=== PATIENT | male | born 1940 | race Caucasian/White ===

== ENCOUNTER 2017-08-03 12:21 | Day surgery (SDC) | payer MEDICARE, SELFPAY ==
[~2017-08-03] VITALS: Ht 172.7 cm; Wt 57.8 kg
[~2017-08-03 12:21] MED LIST: ACET325 PO; ADVAIR; ALBIPROI INH; ALBU3IS INH; AMLO10 PO; ASCO500 PO; ASPI325 PO; ASPI81EC PO; ATOR40TA PO; BLOOD PRESSURE MED; BUDE.5 NEB; CEFD300 PO; CEPH500 PO; COMBIVENT RESPIM4 GM IH; COMBIVENT RESPIM4 GM INH; CYAN1000 PO; Colace100 MG PO; DIOVAN/HCTZ; DOCU100 PO; ELIQUIS2.5 MG; ELIQUIS5 MG; ELIQUIS5 MG PO; ERGO400 PO; FERR325 PO; FISH1000 PO; FLUSAL2505 IH; FLUSAL2505 INH; FURO20 PO; GUAI600T33 PO; Jantoven3 MG PO; LANSOPRAZOLE SUSP; LEVFLO500 PO; LEVO750 PO; LIPITOR; LISI20 PO; LISI5 PO; METO100ER PO; METOPROLOL; MULTIVITAMIN; NYST100SU MT; Norco 5-325 Ta1 EACH PO; OMEP20ER; OMEP20ER PO; OMEPRAZOLE MAGN20 MG PO; PANT40 PO; PRAVASTATIN SOD10 MG PO; PRED10 PO; PRED20 PO; PREVACID; Pantoprazole So40 MG PO; TIOT18 IH; TOBRAMYCIN IV; Tazicef2 GM IJ; Ventolin Soln3 ML INH; Vitamin B Comple1 EA PO; WARF3 PO; XARELTO10 MG; XARELTO15 MG PO; XARELTO20 MG PO
[2018-07-27] MEDS ORDERED: OMEPRAZOLE MAGN20 MG PT (08:15)
[2018-07-30] MEDS ORDERED: Tazicef2 GM IV (16:40)
[2018-08-06] MEDS ORDERED: Bisac-Evac10 MG PR (12:57)
[2018-08-06] MEDS ORDERED: PANT40 PT (12:58)
== END 2017-08-03 14:42 | disposition home or self-care (01) ==
LOC: ORSCSDS 12:21
PROVIDERS: Internal Medicine Gastroenterology
PROC: 0D758ZZ Dilation of Esophagus, Via Natural or Artificial Opening Endoscopic (ICD-10-PCS; principal; 2017-08-03 13:45)
DX: R13.10 Dysphagia, unspecified (principal); K22.2 Esophageal obstruction; I10 Essential (primary) hypertension; I25.10 Atherosclerotic heart disease of native coronary artery without angina pectoris; I25.2 Old myocardial infarction; F17.210 Nicotine dependence, cigarettes, uncomplicated; J44.9 Chronic obstructive pulmonary disease, unspecified; K21.9 Gastro-esophageal reflux disease without esophagitis; E78.00 Pure hypercholesterolemia, unspecified; Z79.899 Other long term (current) drug therapy
CPT/HCPCS: C1726

== ENCOUNTER 2017-10-09 12:29 | Day surgery (SDC) | payer MEDICARE, SELFPAY ==
[~2017-10-09] VITALS: Ht 172.7 cm; Wt 59.2 kg
[2017-10-09] MEDS ORDERED: OMEPRAZOLE MAGN20 MG PO (13:38)
[2017-10-09] MEDS ORDERED: BUDE.5 NEB (13:38)
[2017-10-09] MEDS ORDERED: AMLO5 PO (13:39)
[2017-10-09] MEDS ORDERED: ALBU2.5V5 NEB (13:39)
[2018-07-27] MEDS ORDERED: OMEPRAZOLE MAGN20 MG PT (08:15)
[2018-07-30] MEDS ORDERED: Tazicef2 GM IV (16:40)
[2018-08-06] MEDS ORDERED: Bisac-Evac10 MG PR (12:57)
[2018-08-06] MEDS ORDERED: PANT40 PT (12:58)
== END 2017-10-09 15:50 | disposition home or self-care (01) ==
LOC: ORSCSDS 12:29
PROVIDERS: Internal Medicine Gastroenterology
PROC: 0D758ZZ Dilation of Esophagus, Via Natural or Artificial Opening Endoscopic (ICD-10-PCS; principal; 2017-10-09 13:45)
DX: R13.10 Dysphagia, unspecified (principal); K22.2 Esophageal obstruction; J44.9 Chronic obstructive pulmonary disease, unspecified; N02.8 Recurrent and persistent hematuria with other morphologic changes; F17.210 Nicotine dependence, cigarettes, uncomplicated; I25.10 Atherosclerotic heart disease of native coronary artery without angina pectoris; I25.2 Old myocardial infarction; I10 Essential (primary) hypertension; Z79.01 Long term (current) use of anticoagulants; Z79.899 Other long term (current) drug therapy
CPT/HCPCS: C1726; J7120

== ENCOUNTER 2017-10-23 13:03 | Day surgery (SDC) | payer MEDICARE, SELFPAY ==
[~2017-10-23] VITALS: Ht 172.7 cm; Wt 61.2 kg
[~2017-10-23 13:03] MED LIST changes: +ALBU2.5V5 NEB; +AMLO5 PO
[2017-10-23 17:04] LABS: Blood Urea Nitrogen 15 mg/dL (8-24); Creatinine, Blood 0.88 mg/dL (0.60-1.20); Glomerular Filtration Rate >60 (60-)
[2018-07-27] MEDS ORDERED: OMEPRAZOLE MAGN20 MG PT (08:15)
[2018-07-30] MEDS ORDERED: Tazicef2 GM IV (16:40)
[2018-08-06] MEDS ORDERED: Bisac-Evac10 MG PR (12:57)
[2018-08-06] MEDS ORDERED: PANT40 PT (12:58)
== END 2017-10-23 22:52 | disposition home or self-care (01) ==
LOC: ORSCMMR 13:03
PROVIDERS: Internal Medicine Gastroenterology
PROC: 0D758ZZ Dilation of Esophagus, Via Natural or Artificial Opening Endoscopic (ICD-10-PCS; principal; 2017-10-23 16:30)
DX: R13.14 Dysphagia, pharyngoesophageal phase (principal); K22.2 Esophageal obstruction; I10 Essential (primary) hypertension; J44.9 Chronic obstructive pulmonary disease, unspecified; K21.9 Gastro-esophageal reflux disease without esophagitis; I25.2 Old myocardial infarction; Z99.81 Dependence on supplemental oxygen; Z79.899 Other long term (current) drug therapy
CPT/HCPCS: 82565; 84520; C1726; J7120

== ENCOUNTER → 2018-04-08 | Outpatient (CLI) | payer MEDICARE, SELFPAY ==
[2018-04-08 11:10] LABS: BASOPHILS ABSOLUTE AUTO 0.04 K/mm3 (0.00-0.23); BASOPHILS PERCENT AUTO 0 % (0-2); EOSINOPHILS ABSOLUTE AUTO 0.08 K/mm3 (0.00-0.68); EOSINOPHILS PERCENT AUTO 0 % (0-6); Hematocrit 36.8 % (37.0-53.0); Hemoglobin 11.8 g/dL (13.5-17.5); IMMATURE GRAN ABSOLUTE AUTO 0.81 K/mm3 (0.00-0.10); IMMATURE GRAN PERCENT AUTO 4 % (0-1); LYMPHOCYTES ABSOLUTE AUTO 1.88 K/mm3 (0.84-5.20); LYMPHOCYTES PERCENT AUTO 10 % (21-46); MONOCYTES ABSOLUTE AUTO 3.02 K/mm3 (0.16-1.47); MONOCYTES PERCENT AUTO 17 % (4-13); Mean Corpuscular HGB 34.3 pg (26.0-34.0); Mean Corpuscular HGB Conc 32.1 g/dL (31.5-36.5); Mean Corpuscular Volume 107 fL (80-100); Mean Platelet Volume 9.6 fL (9.1-12.4); NEUTROPHILS ABSOLUTE AUTO 12.45 K/mm3 (1.96-9.15); NEUTROPHILS PERCENT AUTO 68 % (41-73); Platelet Count 417 K/mm3 (150-400); RDW Coefficient Variation 15.2 % (11.7-14.2); RDW Standard Deviation 59.7 fL (35.1-46.3); Red Blood Cell Count 3.44 M/mm3 (4.30-5.90); White Blood Cell Count 18.28 K/mm3 (4.00-11.30)
[2018-04-08 11:15] LABS: Anion Gap 6 mmol/L (6-16); Blood Urea Nitrogen 16 mg/dL (8-24); Bun/Creatinine Ratio 13.8 (12.0-20.0); CO2, Blood 31 mmol/L (21-32); Calcium, Blood 9.2 mg/dL (8.5-10.1); Chloride, Blood 97 mmol/L (98-108); Creatinine, Blood 1.16 mg/dL (0.60-1.20); Glomerular Filtration Rate >60 (60-); Glucose, Blood 97 mg/dL (70-99); Potassium, Blood 4.2 mmol/L (3.5-5.5); Sodium, Blood 134 mmol/L (136-145)
== END | disposition home or self-care (01) ==
LOC: LAB EV 11:05 → LAB SHORT 11:05
PROVIDERS: Family Medicine
DX: J18.0 Bronchopneumonia, unspecified organism (principal)
CPT/HCPCS: 80048; 83880; 85025

== ENCOUNTER 2018-04-19 14:33 | Inpatient (IN) | payer MEDICARE, SELFPAY ==
[~2018-04-19] VITALS: Ht 172.7 cm; Wt 57.7 kg
[2018-04-19] MEDS ORDERED: IRON 100 PLUS1 EACH PO (15:03)
[2018-04-19] MEDS ORDERED: CEFD300 PO (15:08)
[2018-04-19 15:22] LABS: Hematocrit 38.2 % (37.0-53.0); Hemoglobin 11.9 g/dL (13.5-17.5); LYMPHOCYTES ABSOLUTE AUTO 3.04 K/mm3 (0.84-5.20); LYMPHOCYTES PERCENT AUTO 18 % (21-46); MONOCYTES ABSOLUTE AUTO 1.83 K/mm3 (0.16-1.47); MONOCYTES PERCENT AUTO 11 % (4-13); Mean Corpuscular HGB 34.1 pg (26.0-34.0); Mean Corpuscular HGB Conc 31.2 g/dL (31.5-36.5); Mean Platelet Volume 9.7 fL (9.1-12.4); Platelet Count 428 K/mm3 (150-400); RDW Coefficient Variation 15.7 % (11.7-14.2); RDW Standard Deviation 62.7 fL (35.1-46.3); Red Blood Cell Count 3.49 M/mm3 (4.30-5.90); White Blood Cell Count 17.22 K/mm3 (4.00-11.30)
[2018-04-19 15:23] LABS: BASOPHILS ABSOLUTE AUTO 0.03 K/mm3 (0.00-0.23); BASOPHILS PERCENT AUTO 0 % (0-2); EOSINOPHILS ABSOLUTE AUTO 0.32 K/mm3 (0.00-0.68); EOSINOPHILS PERCENT AUTO 2 % (0-6); IMMATURE GRAN ABSOLUTE AUTO 3.84 K/mm3 (0.00-0.10); IMMATURE GRAN PERCENT AUTO 22 % (0-1); Mean Corpuscular Volume 110 fL (80-100); NEUTROPHILS ABSOLUTE AUTO 8.16 K/mm3 (1.96-9.15); NEUTROPHILS PERCENT AUTO 47 % (41-73)
[2018-04-19 15:44] LABS: Alanine Aminotransfer (ALT/SGP 19 U/L (12-78); Albumin, Blood 2.5 g/dL (3.4-5.0); Albumin/Globulin Ratio 0.5 (0.8-1.8); Alk Phos 62 U/L (50-136); Anion Gap 6 mmol/L (6-16); Aspartate Aminotrans (AST/SGOT 15 U/L (12-37); Bilirubin, Total 0.4 mg/dL (0.1-1.0); Blood Urea Nitrogen 20 mg/dL (8-24); CO2, Blood 31 mmol/L (21-32); Calcium, Blood 8.2 mg/dL (8.5-10.1); Chloride, Blood 101 mmol/L (98-108); Creatinine, Blood 0.91 mg/dL (0.60-1.20); Globulin, Blood 4.6 g/dL (2.2-4.0); Glomerular Filtration Rate >60 (60-); Glucose, Blood 114 mg/dL (70-99); Sodium, Blood 138 mmol/L (136-145); Total Protein, Blood 7.1 g/dL (6.4-8.2); Troponin I <0.015 ng/mL (0.000-0.040)
[2018-04-19 15:45] LABS: BAND PERCENT MAN 8 % (0-8); BASOPHILS ABSOLUTE MAN 0.17 K/mm3 (0.00-0.23); BASOPHILS PERCENT MAN 1 % (0-2); EOSINOPHILS ABSOLUTE MAN 0.17 K/mm3 (0.00-0.68); EOSINOPHILS PERCENT MAN 1 % (0-6); LYMPHOCYTES ABSOLUTE MAN 3.61 K/mm3 (0.84-5.20); LYMPHOCYTES PERCENT MAN 21 % (21-46); METAMYELOCYTE ABSOLUTE MAN 0.86 K/mm3 (0.00-0.00); METAMYELOCYTE PERCENT MAN 5 % (0-0); MONOCYTES ABSOLUTE MAN 1.37 K/mm3 (0.16-1.47); MONOCYTES PERCENT MAN 8 % (4-13); MYELOCYTE PERCENT MAN 7 % (0-0); NEUTROPHILS ABSOLUTE MAN 9.81 K/mm3 (1.96-9.15); SEG NEUTROPHILS PERCENT MAN 49 % (41-73); TOTAL CELLS COUNTED 100
[2018-04-19 16:11] LABS: Bicarbonate Venous 25.4 mmol/L (24.0-30.0); PCO2 Venous 61.2 mmHg (38-42); PO2 Venous 40.9 mmHg (38-42); pH Blood Venous 7.29 (7.34-7.37)
[2018-04-19] MEDS ORDERED: Omeprazole20 M1 PO (23:56)
[2018-04-20 05:28] LABS: Hematocrit 33.6 % (37.0-53.0); Hemoglobin 10.4 g/dL (13.5-17.5); Mean Corpuscular Volume 110 fL (80-100); Mean Platelet Volume 9.9 fL (9.1-12.4); Platelet Count 311 K/mm3 (150-400); RDW Coefficient Variation 15.3 % (11.7-14.2); RDW Standard Deviation 61.4 fL (35.1-46.3); Red Blood Cell Count 3.06 M/mm3 (4.30-5.90); White Blood Cell Count 12.48 K/mm3 (4.00-11.30)
[2018-04-20 05:53] LABS: Anion Gap 6 mmol/L (6-16); BAND PERCENT MAN 7 % (0-8); BASOPHILS PERCENT MAN 0 % (0-2); Blood Urea Nitrogen 19 mg/dL (8-24); Bun/Creatinine Ratio 22.9 (12.0-20.0); CO2, Blood 30 mmol/L (21-32); Calcium, Blood 7.7 mg/dL (8.5-10.1); Chloride, Blood 104 mmol/L (98-108); Creatinine, Blood 0.83 mg/dL (0.60-1.20); EOSINOPHILS PERCENT MAN 0 % (0-6); Glomerular Filtration Rate >60 (60-); Glucose, Blood 122 mg/dL (70-99); LYMPHOCYTES ABSOLUTE MAN 2.12 K/mm3 (0.84-5.20); LYMPHOCYTES PERCENT MAN 17 % (21-46); MONOCYTES ABSOLUTE MAN 0.24 K/mm3 (0.16-1.47); MONOCYTES PERCENT MAN 2 % (4-13); MYELOCYTE ABSOLUTE MAN 0.24 K/mm3 (0.00-0.00); MYELOCYTE PERCENT MAN 2 % (0-0); NEUTROPHILS ABSOLUTE MAN 9.85 K/mm3 (1.96-9.15); Potassium, Blood 4.4 mmol/L (3.5-5.5); SEG NEUTROPHILS PERCENT MAN 72 % (41-73); Sodium, Blood 140 mmol/L (136-145); TOTAL CELLS COUNTED 100
[2018-04-22 06:04] LABS: Hematocrit 37.5 % (37.0-53.0); Hemoglobin 11.6 g/dL (13.5-17.5); Mean Corpuscular HGB 34.1 pg (26.0-34.0); Mean Corpuscular HGB Conc 30.9 g/dL (31.5-36.5); Mean Corpuscular Volume 110 fL (80-100); Platelet Count 326 K/mm3 (150-400); RDW Coefficient Variation 15.7 % (11.7-14.2); RDW Standard Deviation 63.9 fL (35.1-46.3); White Blood Cell Count 8.08 K/mm3 (4.00-11.30)
[2018-04-22 06:19] LABS: Albumin, Blood 2.3 g/dL (3.4-5.0); Anion Gap 3 mmol/L (6-16); Blood Urea Nitrogen 10 mg/dL (8-24); Bun/Creatinine Ratio 10.2 (12.0-20.0); CO2, Blood 33 mmol/L (21-32); Calcium, Blood 8.3 mg/dL (8.5-10.1); Chloride, Blood 105 mmol/L (98-108); Creatinine, Blood 0.98 mg/dL (0.60-1.20); Glomerular Filtration Rate >60 (60-); Glucose, Blood 88 mg/dL (70-99); Phosphorus, Blood 2.7 mg/dL (2.5-4.9); Potassium, Blood 4.4 mmol/L (3.5-5.5); Sodium, Blood 141 mmol/L (136-145)
[2018-04-22 07:00] LABS: BAND PERCENT MAN 5 % (0-8); BASOPHILS PERCENT MAN 0 % (0-2); EOSINOPHILS PERCENT MAN 5 % (0-6); LYMPHOCYTES % ATYPICAL MANUAL 7 % (0-0); LYMPHOCYTES ABSOLUTE MAN 2.34 K/mm3 (0.84-5.20); LYMPHOCYTES PERCENT MAN 22 % (21-46); METAMYELOCYTE ABSOLUTE MAN 0.16 K/mm3 (0.00-0.00); METAMYELOCYTE PERCENT MAN 2 % (0-0); MONOCYTES ABSOLUTE MAN 0.64 K/mm3 (0.16-1.47); MONOCYTES PERCENT MAN 8 % (4-13); MYELOCYTE ABSOLUTE MAN 0.08 K/mm3 (0.00-0.00); MYELOCYTE PERCENT MAN 1 % (0-0); NEUTROPHILS ABSOLUTE MAN 4.44 K/mm3 (1.96-9.15); SEG NEUTROPHILS PERCENT MAN 50 % (41-73); TOTAL CELLS COUNTED 100
[2018-04-24 05:16] LABS: BASOPHILS ABSOLUTE AUTO 0.04 K/mm3 (0.00-0.23); BASOPHILS PERCENT AUTO 0 % (0-2); EOSINOPHILS ABSOLUTE AUTO 0.22 K/mm3 (0.00-0.68); EOSINOPHILS PERCENT AUTO 2 % (0-6); Hematocrit 38.3 % (37.0-53.0); IMMATURE GRAN ABSOLUTE AUTO 0.55 K/mm3 (0.00-0.10); IMMATURE GRAN PERCENT AUTO 5 % (0-1); LYMPHOCYTES ABSOLUTE AUTO 1.89 K/mm3 (0.84-5.20); LYMPHOCYTES PERCENT AUTO 16 % (21-46); MONOCYTES ABSOLUTE AUTO 1.27 K/mm3 (0.16-1.47); MONOCYTES PERCENT AUTO 11 % (4-13); Mean Corpuscular HGB 33.9 pg (26.0-34.0); Mean Corpuscular HGB Conc 31.3 g/dL (31.5-36.5); Mean Corpuscular Volume 108 fL (80-100); Mean Platelet Volume 9.8 fL (9.1-12.4); NEUTROPHILS ABSOLUTE AUTO 7.57 K/mm3 (1.96-9.15); NEUTROPHILS PERCENT AUTO 66 % (41-73); Platelet Count 330 K/mm3 (150-400); RDW Coefficient Variation 15.9 % (11.7-14.2); RDW Standard Deviation 63.3 fL (35.1-46.3); Red Blood Cell Count 3.54 M/mm3 (4.30-5.90); White Blood Cell Count 11.54 K/mm3 (4.00-11.30)
[2018-04-24 05:32] LABS: International Normalized Ratio 1.12; Prothrombin Time Results 11.5 Sec (9.7-11.5)
[2018-04-24 05:47] LABS: Anion Gap 4 mmol/L (6-16); Blood Urea Nitrogen 12 mg/dL (8-24); Bun/Creatinine Ratio 13.7 (12.0-20.0); CO2, Blood 32 mmol/L (21-32); Calcium, Blood 8.3 mg/dL (8.5-10.1); Chloride, Blood 105 mmol/L (98-108); Creatinine, Blood 0.88 mg/dL (0.60-1.20); Glomerular Filtration Rate >60 (60-); Glucose, Blood 80 mg/dL (70-99); Potassium, Blood 4.2 mmol/L (3.5-5.5); Sodium, Blood 141 mmol/L (136-145)
[2018-04-25 05:18] LABS: Magnesium, Blood 2.2 mg/dL (1.6-2.4); Phosphorus, Blood 2.9 mg/dL (2.5-4.9)
[2018-04-26 05:14] LABS: BASOPHILS ABSOLUTE AUTO 0.03 K/mm3 (0.00-0.23); BASOPHILS PERCENT AUTO 0 % (0-2); EOSINOPHILS ABSOLUTE AUTO 0.15 K/mm3 (0.00-0.68); EOSINOPHILS PERCENT AUTO 1 % (0-6); Hematocrit 35.3 % (37.0-53.0); IMMATURE GRAN ABSOLUTE AUTO 0.24 K/mm3 (0.00-0.10); IMMATURE GRAN PERCENT AUTO 2 % (0-1); LYMPHOCYTES PERCENT AUTO 7 % (21-46); MONOCYTES ABSOLUTE AUTO 1.38 K/mm3 (0.16-1.47); MONOCYTES PERCENT AUTO 10 % (4-13); Mean Corpuscular HGB 33.8 pg (26.0-34.0); Mean Corpuscular HGB Conc 31.2 g/dL (31.5-36.5); Mean Corpuscular Volume 109 fL (80-100); Mean Platelet Volume 9.8 fL (9.1-12.4); NEUTROPHILS ABSOLUTE AUTO 10.77 K/mm3 (1.96-9.15); NEUTROPHILS PERCENT AUTO 79 % (41-73); Platelet Count 304 K/mm3 (150-400); RDW Coefficient Variation 16.1 % (11.7-14.2); RDW Standard Deviation 63.7 fL (35.1-46.3); Red Blood Cell Count 3.25 M/mm3 (4.30-5.90); White Blood Cell Count 13.57 K/mm3 (4.00-11.30)
[2018-04-26 05:36] LABS: Alanine Aminotransfer (ALT/SGP 11 U/L (12-78); Albumin, Blood 2.1 g/dL (3.4-5.0); Albumin/Globulin Ratio 0.5 (0.8-1.8); Alk Phos 50 U/L (50-136); Anion Gap 6 mmol/L (6-16); Aspartate Aminotrans (AST/SGOT 11 U/L (12-37); Bilirubin, Total 0.4 mg/dL (0.1-1.0); Blood Urea Nitrogen 11 mg/dL (8-24); CO2, Blood 28 mmol/L (21-32); Calcium, Blood 8.4 mg/dL (8.5-10.1); Chloride, Blood 106 mmol/L (98-108); Creatinine, Blood 0.74 mg/dL (0.60-1.20); Globulin, Blood 4.1 g/dL (2.2-4.0); Glomerular Filtration Rate >60 (60-); Glucose, Blood 148 mg/dL (70-99); Potassium, Blood 3.5 mmol/L (3.5-5.5); Sodium, Blood 140 mmol/L (136-145); Total Protein, Blood 6.2 g/dL (6.4-8.2)
[2018-04-27] MEDS ORDERED: NEPHRO-VITE RX1 EACH PO (13:35)
[2018-04-27] MEDS ORDERED: Pulmicort0.5 MG/2 M INH (13:37)
[2018-04-27] MEDS ORDERED: AMOCLA600S PO (13:38)
[2018-04-27] MEDS ORDERED: ALBU3IS INH (13:47)
== END 2018-04-27 16:49 | disposition home health service (06) | DRG 178 ==
LOC: ER 14:33 → MEDS 14:34 → ENPENDDIS 04-27 12:52 → MEDS 04-27 16:49
PROVIDERS: Emergency Medicine; Hospitalist; Internal Medicine; Internal Medicine Gastroenterology
PROC: 3E0G76Z Introduction of Nutritional Substance into Upper GI, Via Natural or Artificial Opening (ICD-10-PCS; 2018-04-24)
PROC: 0DH63UZ Insertion of Feeding Device into Stomach, Percutaneous Approach (ICD-10-PCS; principal; 2018-04-24 14:00)
DX: J69.0 Pneumonitis due to inhalation of food and vomit (principal); E87.2 Acidosis; R13.12 Dysphagia, oropharyngeal phase; J44.9 Chronic obstructive pulmonary disease, unspecified; E78.5 Hyperlipidemia, unspecified; K22.2 Esophageal obstruction; F03.90 Unspecified dementia, unspecified severity, without behavioral disturbance, psychotic disturbance, mood disturbance, and anxiety; I73.1 Thromboangiitis obliterans [Buerger's disease]; I25.10 Atherosclerotic heart disease of native coronary artery without angina pectoris; G47.33 Obstructive sleep apnea (adult) (pediatric); K21.9 Gastro-esophageal reflux disease without esophagitis; M10.9 Gout, unspecified; I50.9 Heart failure, unspecified; I11.0 Hypertensive heart disease with heart failure; Z86.718 Personal history of other venous thrombosis and embolism; Z95.5 Presence of coronary angioplasty implant and graft; Z88.8 Allergy status to other drugs, medicaments and biological substances; Z79.01 Long term (current) use of anticoagulants; Z79.899 Other long term (current) drug therapy; Z87.891 Personal history of nicotine dependence; Z99.81 Dependence on supplemental oxygen
CPT/HCPCS: 36415; 71046; 74230; 80048; 80053; 80069; 82803; 82947; 83735; 83880; 84100; 84484; 85025; 85610; 87070; 87205; 92526; 92610; 92611; 93005; 93010; 94640; 94760; 96374; 96375; 99285-25; 99407; C1769; G8996; G8997; G8998; J0295; J1956; J2370; J2543; J2930; J7030; J7042

== ENCOUNTER 2018-08-15 16:28 | Emergency (ER) | payer MEDICARE, SELFPAY ==
[~2018-08-15] VITALS: Ht 172.7 cm; Wt 60.8 kg
[~2018-08-15 16:28] MED LIST changes: +AMOCLA600S PO; +Bisac-Evac10 MG PR; +IRON 100 PLUS1 EACH PO; +NEPHRO-VITE RX1 EACH PO; +OMEPRAZOLE MAGN20 MG PT; +Omeprazole20 M1 PO; +PANT40 PT; +Pulmicort0.5 MG/2 M INH; +Tazicef2 GM IV
== END 2018-08-15 19:42 | disposition home or self-care (01) ==
LOC: ER 16:28
DX: K40.90 Unilateral inguinal hernia, without obstruction or gangrene, not specified as recurrent (principal); J44.9 Chronic obstructive pulmonary disease, unspecified; I10 Essential (primary) hypertension; I25.10 Atherosclerotic heart disease of native coronary artery without angina pectoris; K21.9 Gastro-esophageal reflux disease without esophagitis; I48.91 Unspecified atrial fibrillation; Z79.899 Other long term (current) drug therapy; Z79.01 Long term (current) use of anticoagulants; Z88.8 Allergy status to other drugs, medicaments and biological substances; Z87.891 Personal history of nicotine dependence
CPT/HCPCS: 76857; 99283-25

== ENCOUNTER 2018-09-17 08:44 | Day surgery (SDC) | payer MEDICARE, SELFPAY ==
[~2018-09-17] VITALS: Ht 172.7 cm; Wt 60.5 kg
[~2018-09-17 08:44] MED LIST changes: +ELIQUIS2.5 MG PO; +MULTI VITAMIN1 EACH PO
--- NOTE | 2018-09-17 09:35 | NUR ---
09/17/18 0935 Cleo Anderson PT BASELINE 02 IS ON 4L PER NC. O2 NOT DISCHARGED AFTER LEAVING PROCEDURE ROOM. PT KEPT ON HIS BASELINE O2.
--- NOTE | 2018-09-17 10:35 | NUR ---
09/17/18 1035 Cleo Anderson PT NOT OFFERED ANYTHING BY MOUTH, PT HAS FEELING TUBE. NO ORAL INTAKE D/T TO ASPIRATION RISK.
== END 2018-09-17 10:54 | disposition home or self-care (01) ==
LOC: ORSCSDS 08:44
PROVIDERS: Internal Medicine Gastroenterology
PROC: 0D758ZZ Dilation of Esophagus, Via Natural or Artificial Opening Endoscopic (ICD-10-PCS; principal; 2018-09-17 10:00)
DX: R13.10 Dysphagia, unspecified (principal); K22.2 Esophageal obstruction; J69.0 Pneumonitis due to inhalation of food and vomit; Z86.718 Personal history of other venous thrombosis and embolism; K21.9 Gastro-esophageal reflux disease without esophagitis; I10 Essential (primary) hypertension; Z87.891 Personal history of nicotine dependence; I25.2 Old myocardial infarction; G47.33 Obstructive sleep apnea (adult) (pediatric); Z79.01 Long term (current) use of anticoagulants; Z79.899 Other long term (current) drug therapy
CPT/HCPCS: C1726; J7120

== ENCOUNTER 2018-10-18 14:00 | Day surgery (SDC) | payer MEDICARE, OTHER ==
[~2018-10-18] VITALS: Ht 167.6 cm; Wt 60.8 kg
== END 2018-10-18 18:09 | disposition home or self-care (01) ==
LOC: ORSCSDS 14:00
PROVIDERS: Internal Medicine Gastroenterology
PROC: 0D758ZZ Dilation of Esophagus, Via Natural or Artificial Opening Endoscopic (ICD-10-PCS; principal; 2018-10-18 15:15)
DX: R13.10 Dysphagia, unspecified (principal); K22.2 Esophageal obstruction; I10 Essential (primary) hypertension; I25.2 Old myocardial infarction; K21.9 Gastro-esophageal reflux disease without esophagitis; Z87.891 Personal history of nicotine dependence; Z79.84 Long term (current) use of oral hypoglycemic drugs
CPT/HCPCS: C1726; J7120

== ENCOUNTER 2018-12-13 09:22 | Day surgery (SDC) | payer MEDICARE, OTHER ==
[~2018-12-13] VITALS: Ht 167.6 cm; Wt 59.5 kg
--- NOTE | 2018-12-13 11:03 | NUR ---
12/13/18 1103 Judith Cortés SAVORY DIALATOR 12 ALSO USED ALONG WITH BALLOON DILITATION.
== END 2018-12-13 11:45 | disposition home or self-care (01) ==
LOC: ORSCSDS 09:22
PROVIDERS: Internal Medicine Gastroenterology
PROC: 0D738ZZ Dilation of Lower Esophagus, Via Natural or Artificial Opening Endoscopic (ICD-10-PCS; principal; 2018-12-13 10:45)
DX: R13.14 Dysphagia, pharyngoesophageal phase (principal); K22.2 Esophageal obstruction; I10 Essential (primary) hypertension; I48.91 Unspecified atrial fibrillation; E78.5 Hyperlipidemia, unspecified; G47.33 Obstructive sleep apnea (adult) (pediatric); J44.9 Chronic obstructive pulmonary disease, unspecified; Z87.891 Personal history of nicotine dependence; I25.2 Old myocardial infarction; Z79.899 Other long term (current) drug therapy; Z99.81 Dependence on supplemental oxygen
CPT/HCPCS: C1726; J2704; J7120

== ENCOUNTER 2019-02-20 05:48 | Inpatient (IN) | payer MEDICARE, SELFPAY ==
[~2019-02-20] VITALS: Ht 170.2 cm; Wt 60.2 kg
[~2019-02-20 05:48] MED LIST changes: -ELIQUIS2.5 MG PO; +ELIQUIS5 MG PT
[2019-02-20 05:55] LABS: PO2 Arterial 150 mmHg (80-100)
[2019-02-20 05:56] LABS: PCO2 Arterial > 106 mmHg (35-45); pH Blood Arterial 7.15 (7.35-7.45)
[2019-02-20 06:08] LABS: BASOPHILS ABSOLUTE AUTO 0.02 K/mm3 (0.00-0.23); BASOPHILS PERCENT AUTO 0 % (0-2); EOSINOPHILS ABSOLUTE AUTO 0.27 K/mm3 (0.00-0.68); EOSINOPHILS PERCENT AUTO 2 % (0-6); Hemoglobin 8.4 g/dL (13.5-17.5); IMMATURE GRAN ABSOLUTE AUTO 0.81 K/mm3 (0.00-0.10); IMMATURE GRAN PERCENT AUTO 6 % (0-1); LYMPHOCYTES ABSOLUTE AUTO 4.73 K/mm3 (0.84-5.20); LYMPHOCYTES PERCENT AUTO 33 % (21-46); MONOCYTES ABSOLUTE AUTO 2.67 K/mm3 (0.16-1.47); MONOCYTES PERCENT AUTO 18 % (4-13); Mean Corpuscular HGB Conc 27.1 g/dL (31.5-36.5); Mean Corpuscular Volume 111 fL (80-100); Mean Platelet Volume 10.4 fL (9.1-12.4); NEUTROPHILS ABSOLUTE AUTO 6.06 K/mm3 (1.96-9.15); NEUTROPHILS PERCENT AUTO 42 % (41-73); Platelet Count 506 K/mm3 (150-400); RDW Coefficient Variation 18.6 % (11.7-14.2); RDW Standard Deviation 75.7 fL (35.1-46.3); White Blood Cell Count 14.56 K/mm3 (4.00-11.30)
[2019-02-20] MEDS ORDERED: PANT40 PT (06:16)
[2019-02-20 06:30] LABS: Alanine Aminotransfer (ALT/SGP 29 U/L (12-78); Albumin, Blood 2.7 g/dL (3.4-5.0); Albumin/Globulin Ratio 0.4 (0.8-1.8); Alk Phos 72 U/L (50-136); Anion Gap 2 mmol/L (6-16); Aspartate Aminotrans (AST/SGOT 35 U/L (12-37); Bilirubin, Total 0.5 mg/dL (0.1-1.0); Blood Urea Nitrogen 23 mg/dL (8-24); Bun/Creatinine Ratio 33.1 (12.0-20.0); CO2, Blood 39 mmol/L (21-32); Calcium, Blood 8.9 mg/dL (8.5-10.1); Chloride, Blood 97 mmol/L (98-108); Creatinine, Blood 0.69 mg/dL (0.60-1.20); Globulin, Blood 6.3 g/dL (2.2-4.0); Glomerular Filtration Rate >60 (60-); Glucose, Blood 198 mg/dL (70-99); Potassium, Blood 4.5 mmol/L (3.5-5.5); Sodium, Blood 138 mmol/L (136-145); Troponin I <0.015 ng/mL (0.000-0.040)
[2019-02-20 08:27] LABS: PCO2 Arterial 82.3 mmHg (35-45); pH Blood Arterial 7.28 (7.35-7.45)
--- NOTE | 2019-02-20 08:35 | NUR ---
ADMITTED TO ICU, ROOM 2, VIA GUERNEY FROM ER; DX RESP. FAILURE; SEE ER RECORDS FOR DETAILS. PATIENTED ON BIPAP MACHINE WITH SETTINGS: 18/8, RATE 16, FIO2 40%. BIOX. MAINTAINING MID TO HIGH 90'S. LUNGS DECREASED T/O. PATIENT OXYGEN DEPENDENT AT HOME; WEARS 5L/NC? PER SPOUSE BUT SHE TURNED O2 UP TO 8L/MIN.; C02 READING WAS OVER 100 ON ARRIVAL TO ICU VIA EMS. PATIENT NPO; TO REMAIN NPO STATUS, ONGOING. PEG TUBE TO L MID ABDOMEN CLAMPED; HAS BEEN RECEIVING 4-5 CANS OF PIVOT 1.5 PER DAY.
--- NOTE | 2019-02-20 12:00 | NUR ---
SCD'S APPLIED TO LOWER EXTREMITIES. PATIENT STARTED ON TUBE FEEDINGS; PIVOT 1L5 AT 25/HR; RATE TO INCREASE TO GOAL OF 45/HR.
[2019-02-20 12:49] LABS: Free Thyroxine 0.94 ng/dL (0.70-1.60)
[2019-02-20 12:52] LABS: Thyroid Stimulating Hormone 1.55 uIU/mL (0.360-4.800); Triiodothyronine, Free 1.59 pg/mL (2.18-3.98)
--- NOTE | 2019-02-20 16:30 | NUR ---
PRECEDEX 0.2MCG/KG/HR INITIATED TO HELP WITH ANXIETY ISSUES RELATED TO BIPAP MACHINE. PATIENT WITH INCREASED RESTLESS AND MASK WITH MORE AIR LEAKS; MULTIPLE READJUSTMENTS BY RN AND RSergeyT. RN INFORMED DR. LOAIZA AND ORDER GIVEN TO START PRECEDEX DRIP AT 0.2MCG/KG/HR.
--- NOTE | 2019-02-20 18:07 | NUR ---
SUMMARY: BIPAP MASK CHANGED SEVERAL TIMES TO GET GOOD SEAL AND ALSO MAKE LESS 'FARTY' NOISES. BIPAP SETTINGS REMAIN 18/8, RATE 16 AND FIO2 40%. VOIDED 160ML OF PRIYANKA COLORED URINE. TUBE FEEDING CAME DETACHED FROM PEG TUBE, FOR AWHILE, SECURED WITH TAPE TO PREVENT PULLING OUT. GTUBE SITE RED/SCABBY; NO DRAINAGE; NEOSPORIN OINTMENT APPLIED TO PERIMETER OF PEG SITE WELL TO SCABBED AREAS (Q-TIPS USED). MOUTH DRY: SWABBED WITH SPONGES DIPPED IN ICE WATER. REDNESS TO BUTTOCKS; MOISTURE BARRIER CREAM APPLIED AND PATIENT TURNED FREQUENTLY. WILL REPORT TO ONCOMING RN.
--- NOTE | 2019-02-20 21:38 | NUR ---
[place] of Care: Patient alert and oriented x4, sitting upright in bed. Currently on BiPAP 18/8/35%, O2-94-98%, tolerating mask without difficulty. Patient currently on precedex gtt at 0.2mcg/kg/min, initiated on day shift per anxiety with BiPAP mask. Peripheral IV's x2 patent and intact. Voiding using urinal without difficulty. Patient NPO at baseline. Currently receiving tube feedings per PEG tube. Type of tube feed and flush volume did not match orders at shift change. Tube feed changed to Jevity 1.5 jose at 45ml/hr, and flush interval changed to 115ml/4hr to reflect orders. Call light in reach, makes needs known. Will continue to monitor for pain, comfort, safety.
[2019-02-21 03:21] LABS: Hematocrit 24.5 % (37.0-53.0); Hemoglobin 6.8 g/dL (13.5-17.5); Mean Corpuscular HGB 30.2 pg (26.0-34.0); Mean Corpuscular HGB Conc 27.8 g/dL (31.5-36.5); Mean Corpuscular Volume 109 fL (80-100); Mean Platelet Volume 10.6 fL (9.1-12.4); NRBC ABSOLUTE 0.02 K/mm3 (0.00-0.02); NRBC Auto 0.5 /100 WBC (0.0-0.2); Platelet Count 316 K/mm3 (150-400); RDW Coefficient Variation 18.1 % (11.7-14.2); RDW Standard Deviation 71.1 fL (35.1-46.3); Red Blood Cell Count 2.25 M/mm3 (4.30-5.90); White Blood Cell Count 3.76 K/mm3 (4.00-11.30)
[2019-02-21 03:37] LABS: Anion Gap 2 mmol/L (6-16); Blood Urea Nitrogen 33 mg/dL (8-24); Bun/Creatinine Ratio 41.4 (12.0-20.0); CO2, Blood 37 mmol/L (21-32); Calcium, Blood 8.2 mg/dL (8.5-10.1); Chloride, Blood 99 mmol/L (98-108); Glomerular Filtration Rate >60 (60-); Glucose, Blood 158 mg/dL (70-99); Magnesium, Blood 2.3 mg/dL (1.6-2.4); Phosphorus, Blood 3.1 mg/dL (2.5-4.9); Potassium, Blood 4.7 mmol/L (3.5-5.5); Sodium, Blood 138 mmol/L (136-145)
[2019-02-21 05:15] LABS: PCO2 Arterial 56.9 mmHg (35-45); PO2 Arterial 79.4 mmHg (80-100); pH Blood Arterial 7.42 (7.35-7.45)
[2019-02-21 05:29] LABS: BAND PERCENT MAN 13 % (0-8); BASOPHILS PERCENT MAN 0 % (0-2); EOSINOPHILS PERCENT MAN 0 % (0-6); LYMPHOCYTES ABSOLUTE MAN 1.01 K/mm3 (0.84-5.20); LYMPHOCYTES PERCENT MAN 27 % (21-46); METAMYELOCYTE ABSOLUTE MAN 0.03 K/mm3 (0.00-0.00); METAMYELOCYTE PERCENT MAN 1 % (0-0); MONOCYTES ABSOLUTE MAN 0.48 K/mm3 (0.16-1.47); MONOCYTES PERCENT MAN 13 % (4-13); NEUTROPHILS ABSOLUTE MAN 2.21 K/mm3 (1.96-9.15); SEG NEUTROPHILS PERCENT MAN 46 % (41-73); TOTAL CELLS COUNTED 100
--- NOTE | 2019-02-21 05:45 | NUR ---
Shift Summary: Patient slept on/off throughout shift. Continues to deny pain, discomfort, SOB, or dyspnea. On BiPAP 18/8/30-40% throughout most of shift. Tolerated mask well, but c/o of discomfort to his nose after long periods of wearing mask. Able to tolerate long breaks from mask without difficulty, NC at 2-3LPM. PEG tube remains patent and intact, residuals 0-10ml, tube feed at goal rate. x2 peripheral IV's remain patent and intact. Call placed to Dr. Bradley this morning r/t Hgb- 6.8, received order to transfuse x1u PRBC's, check H+H x2hr after blood is transfused, and for LR at 75ml/hr (r/t decreased urine output). Voiding using urinal in bed without difficulty. Uses call light for assistance, makes needs known. Awaiting unit ready slip from lab at this time. Will continue to monitor until report to day shift RN.
[2019-02-21 12:05] LABS: Adenovirus Not Detected (NOT DETECT); Bordetella pertussis Not Detected (NOT DETECT); Chlamydophila pneumoniae Not Detected (NOT DETECT); Coronavirus 229E Not Detected (NOT DETECT); Coronavirus HKU1 Not Detected (NOT DETECT); Coronavirus NL63 Not Detected (NOT DETECT); Coronavirus OC43 Not Detected (NOT DETECT); Human Metapneumovirus Not Detected (NOT DETECT); Human Rhinovirus/Enterovirus Not Detected (NOT DETECT); Influenza A Not Detected (NOT DETECT); Influenza A/2009-H1 Not Detected (NOT DETECT); Influenza A/H1 Not Detected (NOT DETECT); Influenza A/H3 Not Detected (NOT DETECT); Influenza B Not Detected (NOT DETECT); Mycoplasma pneumoniae Not Detected (NOT DETECT); Parainfluenza Virus 1 Not Detected (NOT DETECT); Parainfluenza Virus 2 Not Detected (NOT DETECT); Parainfluenza Virus 3 Not Detected (NOT DETECT); Parainfluenza Virus 4 Not Detected (NOT DETECT); Respiratory Syncytial Virus Not Detected (NOT DETECT)
--- NOTE | 2019-02-21 12:25 | NUR ---
0740: CARE ASSUMED, ASSESSMENT COMPLETED. PT RESTING IN BED WITH NO C/O, DENIES CHEST PAIN AND SOB AT THIS TIME. O2 2L/NC, SPO2 >95% WHILE AT REST. BLOOD TRANSFUSION INITIATED AT THIS TIME, PT AFEBRILE. HR 50'S SINUS, 1ST DEG AV BLOCK, OTHER VSS. LR 75ML/HR, JEVITY 1.5 45ML/HR WITH 115ML WATER FLUSH Q4H. 0800: VSS, NO S/SX TRANSFUSION REACTION NOTED AT THIS TIME 0930: PT SITTING UP IN BED VISITING WITH , DENIES C/O, NO SOB AT REST. VS REMAIN STABLE, AFEBRILE, BLOOD INFUSING WITHOUT DIFFICULTY. MEDS GIVEN CRUSHED VIA PEG TUBE WITHOUT DIFFICULTY. 1000: PT UP TO BSC FOR MEDIUM SOFT BROWN BM. SPO2 80'S WITH ACTIVITY, O2 INCREASED TO 4L/NC, SPO2 UP TO >95% WHILE PT RESTING IN BED AFTER BM. WILL TITRATE TO KEEP SPO2 >90%. 1035: TRANSFUSION COMPLETED, VSS. LR DC'D PER ORDERS. 1230: BG 115, LABS DRAWN. PT SITTING IN BED WATCHING TV, DENIES PAIN, DISCOMFORT, NEEDS, OR C/O. 1300: PT HAD A SECOND BM, DENIES OTHER NEEDS. VSS, SPO2 MAINTAINING 96% ON 4L/NC.
[2019-02-21 12:44] LABS: Hematocrit 28.9 % (37.0-53.0); Hemoglobin 8.2 g/dL (13.5-17.5)
--- NOTE | 2019-02-21 14:01 | NUR ---
PT BECAME SOB WHILE VOIDING, SPO2 95% 4L/NC, RT CALLED FOR NEB TREATMENT. PT'S HR 70'S - 80'S, IRREGULAR AT THIS TIME WITH PVC'S, MO INTERVAL REMAINS PROLONGED. PT DENIES CHEST PAIN.
--- NOTE | 2019-02-21 17:36 | NUR ---
1600: PT SITTING UP IN BED RESTING, O2 CONTINUES TO BE TITRATED TO KEEP SPO2 >90%, O2 NEED DEPENDS ON ACTIVITY. LS CLEAR AT THIS TIME, RIGHT LS DIMINISHED, OCCASIONAL DRY COUGH NOTED. HR REMAINS IRREGULAR, UNCHANGED. OCCASIONAL DROPPED BEATS. 1730: PT GIVEN URINAL, VOIDING WITHOUT DIFFICULTY. O2 2L/NC AT THIS TIME, SPO2 >95%, PT DENIES SOB AT REST, WILL CONTINUE TO MONITOR. DRESSING TO PEG TUBE CHANGED, SMALL AMOUNT OF YELLOW/BROWN DRAINAGE PRESENT, CLEANSED WITH NS AND GAUZE. PT DENIES PAIN AT SITE, NO BLEEDING NOTED.
--- NOTE | 2019-02-21 18:53 | NUR ---
TRANSFER NOTE RECEIVED REPORT FROM GLENIS DEAN RN IN ICU. PT TRANSFERED TO BED WITH 3 PERSON ASSIST AND SLIDER SHEET. PT ORIENTED TO ROOM AND CALL LIGHT. PT A&Ox3. CALM AND COOPERATIVE WITH CARE. PT RESTING IN BED. PT REPORTS SOB WITH EXERTION AND MOVEMENT, ON 3L O2 VIA NC AT 86-87, TITRATED TO 4L O2 AT 92%. LS EXP WHE T/O DIM IN BASES. PEG TUBE IN PLACE, CONTINOUS FEEDING PER ORDERS. PT RECEIVING IV ANTIBIOTICS. VSS. REPORT GIVEN TO ONCOMING RN.
--- NOTE | 2019-02-21 18:56 | NUR ---
Brought patient to pcu 13 following transfer of pt care from ICU to PCU. The pt is awake, alert, and asking multiple times when he will be able to eat, despite being just told that he is NPO for safety due to aspiration. He was not able to correctly demonstrate how to use the call light for help.
--- NOTE | 2019-02-21 19:11 | NUR ---
1800: REPORT GIVEN TO DENNIS U NURSE. 1830: PT TO U 13 WITH ASIAS, NATHANAEL.
[2019-02-22 03:58] LABS: Base Excess Venous 13.9 mmol/L; Bicarbonate Venous 35.3 mmol/L (24.0-30.0); PCO2 Venous 63.6 mmHg (38-42); PO2 Venous 32.5 mmHg (38-42); pH Blood Venous 7.39 (7.34-7.37)
[2019-02-22 03:59] LABS: Hematocrit 29.6 % (37.0-53.0); Hemoglobin 8.4 g/dL (13.5-17.5); Mean Corpuscular HGB 30.3 pg (26.0-34.0); Mean Corpuscular HGB Conc 28.4 g/dL (31.5-36.5); Mean Corpuscular Volume 107 fL (80-100); Mean Platelet Volume 10.6 fL (9.1-12.4); NRBC ABSOLUTE 0.02 K/mm3 (0.00-0.02); NRBC Auto 0.3 /100 WBC (0.0-0.2); Platelet Count 331 K/mm3 (150-400); RDW Coefficient Variation 20.7 % (11.7-14.2); RDW Standard Deviation 80.5 fL (35.1-46.3); Red Blood Cell Count 2.77 M/mm3 (4.30-5.90); White Blood Cell Count 7.07 K/mm3 (4.00-11.30)
[2019-02-22 04:32] LABS: Anion Gap 3 mmol/L (6-16); Blood Urea Nitrogen 28 mg/dL (8-24); Bun/Creatinine Ratio 37.9 (12.0-20.0); CO2, Blood 36 mmol/L (21-32); Calcium, Blood 8.4 mg/dL (8.5-10.1); Chloride, Blood 101 mmol/L (98-108); Creatinine, Blood 0.74 mg/dL (0.60-1.20); Glomerular Filtration Rate >60 (60-); Glucose, Blood 114 mg/dL (70-99); Magnesium, Blood 2.5 mg/dL (1.6-2.4); Phosphorus, Blood 2.6 mg/dL (2.5-4.9); Potassium, Blood 4.4 mmol/L (3.5-5.5); Sodium, Blood 140 mmol/L (136-145)
[2019-02-22 05:30] LABS: BAND PERCENT MAN 25 % (0-8); BASOPHILS PERCENT MAN 0 % (0-2); EOSINOPHILS PERCENT MAN 0 % (0-6); LYMPHOCYTES ABSOLUTE MAN 0.84 K/mm3 (0.84-5.20); LYMPHOCYTES PERCENT MAN 12 % (21-46); METAMYELOCYTE ABSOLUTE MAN 0.21 K/mm3 (0.00-0.00); METAMYELOCYTE PERCENT MAN 3 % (0-0); MONOCYTES ABSOLUTE MAN 0.63 K/mm3 (0.16-1.47); MONOCYTES PERCENT MAN 9 % (4-13); MYELOCYTE ABSOLUTE MAN 0.28 K/mm3 (0.00-0.00); MYELOCYTE PERCENT MAN 4 % (0-0); NEUTROPHILS ABSOLUTE MAN 5.09 K/mm3 (1.96-9.15); SEG NEUTROPHILS PERCENT MAN 47 % (41-73); TOTAL CELLS COUNTED 100
--- NOTE | 2019-02-22 07:34 | NUR ---
SHIFT SUMMARY PATIENT PLEASENT THROUGHOUT THE NIGHT. PATIENT APPEARED TO NAP ON AND OFF LAST NIGHT. PATIENT ABLE TO TURN SELF IN BED. PATIENT EDUCATED ON IMPORTANCE OF KEEPING THE HEAD OF THE BED AT 30 DEGREES. PATIENT VERBALIZED UNDERSTANDING EACH TIME BUT WOULD SOMETIMES LOWER THE HEAD OF THE BED ANYWAY. PATIENT REEDUCATED EACH TIME AND THE HEAD OF THE BED WAS PLACED BACK AT 30 DEGRESS. PATIENT'S PEG TUBE CAME APART TWICE LAST NIGHT CAUSING TUBE FEEDING TO SATURATE PATIENT'S BED EACH TIME. BED SHEETS CHANGED AND PEG TUBE PLACED BACK TOGETHER EACH TIME. TUBE FEEDINGS AND FLUSHES RUNNING PER ORDERS. IV ABX GIVEN PER ORDERS. REPORT GIVEN TO ONCOMING RN.
[2019-02-22] MEDS ORDERED: AMOCLA250S PT (10:51)
--- NOTE | 2019-02-22 11:25 | NUR ---
NOTIFIED DR TATUM OF SPOUSE'S REQUEST FOR HOME O2 EVAL. NEW ORDERS ENTERED
--- NOTE | 2019-02-22 14:41 | NUR ---
DISCHARGE SUMMARY PT A&Ox3, FORGETFUL. PT ASKING FOR FOOD AND WATER, EDUCATED PT ON NPO STATUS ON WHY WE ARE UNABLE TO PROVIDE WATER OR FOOD. 1 PERSON ASSIT WITH FWW. PT SOB EXERTION OR MOVEMENT, TITRATING PT FROM 2-4L O2. HOME O2 EVALUATION COMPLETED, 3L O2 AT REST AND 5L O2 FOR ACTIVITY. PT USES CONCENTRATOR AT HOME AND PORTABLE CONCENTRATOR WAS BROUGHT IN BY SPOUSE FOR DISCHARGE HOME. PT RECEIVING IV ANTIBITICS AND STEROIDS. PT RECEIVING CONTINUOS TUBE FEEDING PER ORDERS. VSS. NO OTHER ACUTE CHANGES NOTED DURINGS SHIFT. EDUCATED PT AND SPOUSE OF DISCHARGE INSTRUCTIONS, MEDICATIONS AND FOLLOW UP APPOINTMENTS. PRESCRIPTIONS FAXED TO [facility] PER SPOUSES REQUEST. PT LEFT ROOM VIA WHEELCHAIR AT 1425. PT STABLE UPON DISCHARGE.
[2019-06-16] MEDS ORDERED: Pulmicort0.5 MG/2 M INH (14:05)
[2019-06-16] MEDS ORDERED: LONHALA MA25 MCG/11 (14:07)
[2019-06-16] MEDS ORDERED: [UNRECOGNIZED DRUG - OTHER] PO (14:07)
== END 2019-02-22 14:28 | disposition home or self-care (01) | DRG 177 ==
LOC: ER 05:48 → ICUW 07:11 → ICUE 07:58 → PCU 08:40 → ICUE 09:10 → PCU 02-21 18:44
PROVIDERS: Emergency Medicine; Internal Medicine Critical Care Medicine; Internal Medicine Pulmonary Disease; ADMIT Internal Medicine
PROC: 5A09357 Assistance with Respiratory Ventilation, Less than 24 Consecutive Hours, Continuous Positive Airway Pressure (ICD-10-PCS; principal; 2019-02-20)
PROC: 30233N1 Transfusion of Nonautologous Red Blood Cells into Peripheral Vein, Percutaneous Approach (ICD-10-PCS; 2019-02-21)
DX: J69.0 Pneumonitis due to inhalation of food and vomit (principal); J96.22 Acute and chronic respiratory failure with hypercapnia; J96.21 Acute and chronic respiratory failure with hypoxia; E87.2 Acidosis; Z99.81 Dependence on supplemental oxygen; J44.9 Chronic obstructive pulmonary disease, unspecified; I25.10 Atherosclerotic heart disease of native coronary artery without angina pectoris; K21.9 Gastro-esophageal reflux disease without esophagitis; I48.2 Chronic atrial fibrillation; G47.33 Obstructive sleep apnea (adult) (pediatric); F03.90 Unspecified dementia, unspecified severity, without behavioral disturbance, psychotic disturbance, mood disturbance, and anxiety; Z87.891 Personal history of nicotine dependence; R13.12 Dysphagia, oropharyngeal phase; D50.0 Iron deficiency anemia secondary to blood loss (chronic)
CPT/HCPCS: 36415; 36430; 36600; 71045; 80048; 80053; 82803; 82947; 83605; 83735; 84100; 84439; 84443; 84481; 84484; 85014; 85018; 85025; 86850; 86900; 86901; 86923; 87040; 87486; 87581; 87633; 87798; 93005; 93010; 94640; 94644; 94660; 94761; 94762; 96361; 96365; 99285-25; C9113; G0378; J0456; J1650; J2543; J2920; J7030; J7050; J7120; P9016

== ENCOUNTER 2019-04-02 07:02 | Inpatient (IN) | payer MEDICARE, SELFPAY ==
[~2019-04-02] VITALS: Ht 175.3 cm; Wt 58.4 kg
[~2019-04-02 07:02] MED LIST changes: +AMOCLA250S PT
[2019-04-02 07:33] LABS: PO2 Arterial 93.3 mmHg (80-100)
[2019-04-02 07:33] LABS: Hemoglobin 9.8 g/dL (13.5-17.5); Mean Corpuscular HGB 30.9 pg (26.0-34.0); Mean Corpuscular HGB Conc 27.2 g/dL (31.5-36.5); Mean Corpuscular Volume 114 fL (80-100); Mean Platelet Volume 10.6 fL (9.1-12.4); Platelet Count 458 K/mm3 (150-400); RDW Coefficient Variation 18.7 % (11.7-14.2); RDW Standard Deviation 78.6 fL (35.1-46.3); Red Blood Cell Count 3.17 M/mm3 (4.30-5.90)
[2019-04-02 07:34] LABS: PCO2 Arterial > 105 mmHg (35-45); pH Blood Arterial 7.22 (7.35-7.45)
[2019-04-02 07:52] LABS: Alanine Aminotransfer (ALT/SGP 27 U/L (12-78); Albumin, Blood 2.4 g/dL (3.4-5.0); Albumin/Globulin Ratio 0.4 (0.8-1.8); Alk Phos 87 U/L (50-136); Anion Gap 1 mmol/L (6-16); Aspartate Aminotrans (AST/SGOT 29 U/L (12-37); Bilirubin, Total 0.9 mg/dL (0.1-1.0); Blood Urea Nitrogen 19 mg/dL (8-24); Bun/Creatinine Ratio 34.5 (12.0-20.0); CO2, Blood 44 mmol/L (21-32); Calcium, Blood 9.5 mg/dL (8.5-10.1); Chloride, Blood 91 mmol/L (98-108); Creatinine, Blood 0.55 mg/dL (0.60-1.20); Globulin, Blood 6.5 g/dL (2.2-4.0); Glomerular Filtration Rate >60 (60-); Glucose, Blood 168 mg/dL (70-99); Sodium, Blood 136 mmol/L (136-145); Total Protein, Blood 8.9 g/dL (6.4-8.2)
[2019-04-02 08:03] LABS: BAND PERCENT MAN 9 % (0-8); BASOPHILS PERCENT MAN 0 % (0-2); EOSINOPHILS ABSOLUTE MAN 0.29 K/mm3 (0.00-0.68); EOSINOPHILS PERCENT MAN 2 % (0-6); LYMPHOCYTES ABSOLUTE MAN 3.33 K/mm3 (0.84-5.20); LYMPHOCYTES PERCENT MAN 23 % (21-46); METAMYELOCYTE ABSOLUTE MAN 0.43 K/mm3 (0.00-0.00); METAMYELOCYTE PERCENT MAN 3 % (0-0); MONOCYTES ABSOLUTE MAN 2.46 K/mm3 (0.16-1.47); MONOCYTES PERCENT MAN 17 % (4-13); MYELOCYTE ABSOLUTE MAN 0.29 K/mm3 (0.00-0.00); MYELOCYTE PERCENT MAN 2 % (0-0); NEUTROPHILS ABSOLUTE MAN 7.68 K/mm3 (1.96-9.15); SEG NEUTROPHILS PERCENT MAN 44 % (41-73); TOTAL CELLS COUNTED 100
--- NOTE | 2019-04-02 11:00 | NUR ---
RECEIVED THIS PATIENT FROM ER WITH A CHIEF COMPLAINT OF SHORTNESS OF BREATH. PT IS ON BIPAP AT THIS TIME WITH SETTINGS AT 14/6 BUR 12 FIO2 60%. PT IS DROWSY. OPENS EYES TO VOICE, FOLLOWING COMMANDS BUT DOES IS NOT TALKING AT THIS TIME. PT'S ALPESH STATES THAT IS CAN TALK. PT IS ABLE TO TRANSFER FROM BED TO THE BEDSIDE COMMODE OR WALK TO THE BATHROOM AT HOME.
[2019-04-02] MEDS ORDERED: Brovana15 MCG/2 M INH (13:30)
[2019-04-02] MEDS ORDERED: CLOP75 PO (13:33)
[2019-04-02] MEDS ORDERED: FURO20 PO (13:34)
--- NOTE | 2019-04-02 16:07 | NUR ---
PT WOKE UP. SITTING ON THE SIDE OF THE BED. RT RADHA WAS STATING THAT PT WAS ABLE TO EXPECTORATE LARGE PHLEGM BUT WAS UNABLE TO COLLECT SPUTUM FOR CULTURE.
--- NOTE | 2019-04-02 19:22 | NUR ---
shift summary: Pt is awake, alert and oriented. Denies pain at this time. Pt is able to reconize family at this time. Tube feeding was started as ordered with Vital High Protein @ 20ml/hr. Pt is still on Bipap same settings with decreased FIO2 @ 55%. Pt was given a break on the Bipap but pt was unable to tolerate off Bipap. Pt has occasional productive cough with yellow sputum. PEG tube in place and patent.
[2019-04-03 04:00] LABS: Hematocrit 27.6 % (37.0-53.0); Hemoglobin 7.8 g/dL (13.5-17.5); Mean Corpuscular HGB 31.1 pg (26.0-34.0); Mean Corpuscular HGB Conc 28.3 g/dL (31.5-36.5); Mean Corpuscular Volume 110 fL (80-100); Mean Platelet Volume 10.7 fL (9.1-12.4); Platelet Count 295 K/mm3 (150-400); RDW Coefficient Variation 18.2 % (11.7-14.2); RDW Standard Deviation 74.1 fL (35.1-46.3); Red Blood Cell Count 2.51 M/mm3 (4.30-5.90); White Blood Cell Count 14.73 K/mm3 (4.00-11.30)
[2019-04-03 04:19] LABS: PCO2 Arterial 77.4 mmHg (35-45); PO2 Arterial 81.2 mmHg (80-100)
[2019-04-03 04:24] LABS: Alanine Aminotransfer (ALT/SGP 20 U/L (12-78); Albumin/Globulin Ratio 0.4 (0.8-1.8); Alk Phos 65 U/L (50-136); Anion Gap 2 mmol/L (6-16); Aspartate Aminotrans (AST/SGOT 22 U/L (12-37); Bilirubin, Total 0.4 mg/dL (0.1-1.0); Blood Urea Nitrogen 30 mg/dL (8-24); Bun/Creatinine Ratio 49.5 (12.0-20.0); CO2, Blood 43 mmol/L (21-32); Calcium, Blood 8.6 mg/dL (8.5-10.1); Chloride, Blood 94 mmol/L (98-108); Creatinine, Blood 0.61 mg/dL (0.60-1.20); Globulin, Blood 5.1 g/dL (2.2-4.0); Glomerular Filtration Rate >60 (60-); Glucose, Blood 183 mg/dL (70-99); Magnesium, Blood 2.5 mg/dL (1.6-2.4); Phosphorus, Blood 2.5 mg/dL (2.5-4.9); Potassium, Blood 4.5 mmol/L (3.5-5.5); Sodium, Blood 139 mmol/L (136-145); Total Protein, Blood 7.1 g/dL (6.4-8.2)
[2019-04-03 04:32] LABS: BAND PERCENT MAN 20 % (0-8); BASOPHILS PERCENT MAN 0 % (0-2); EOSINOPHILS PERCENT MAN 0 % (0-6); LYMPHOCYTES ABSOLUTE MAN 0.44 K/mm3 (0.84-5.20); LYMPHOCYTES PERCENT MAN 3 % (21-46); METAMYELOCYTE ABSOLUTE MAN 0.14 K/mm3 (0.00-0.00); METAMYELOCYTE PERCENT MAN 1 % (0-0); MONOCYTES PERCENT MAN 0 % (4-13); MYELOCYTE ABSOLUTE MAN 0.14 K/mm3 (0.00-0.00); MYELOCYTE PERCENT MAN 1 % (0-0); NEUTROPHILS ABSOLUTE MAN 13.99 K/mm3 (1.96-9.15); SEG NEUTROPHILS PERCENT MAN 75 % (41-73); TOTAL CELLS COUNTED 100
--- NOTE | 2019-04-03 04:47 | NUR ---
CALL TO MD HERNANDEZ TO REPORT HGB DECREASE FROM 9.8 YESTERDAY TO 7.8 THIS AM. ORDERS FROM MD HERNANDEZ TO REPEAT CBC @ 0800.
--- NOTE | 2019-04-03 04:52 | NUR ---
SHIFT SUMMARY PT A&O TO SELF AND SURROUNDINGS, FOLLOWING INSTRUCTIONS. VSS. PT NPO, PEG TUBE INFUSING TF PER ORDERS. PT TOLERATING BIPAP T/O ENTIRE SHIFT. BIPAP SETTINGS: 07/02, FIO2 60% TITRATED TO 40% THIS SHIFT. MONITOR SHOWS SB, HR 50'S. DECREASE IN HGB W/ NO SIGNS OF BLEEDING CALLED TO MD HERNANDEZ W/ ORDERS FOR CBC BLOOD DRAW TO BE REPEATED @ 0800. NO CHANGES IN PT. Q2H REPOSTIONING BY STAFF. PT CONTINENT, VOIDING IN URINAL. WILL CONTINUE TO MONITOR AND PROVIDE CARE UNTIL REPORT OFF TO DAY SHIFT RN.
[2019-04-03 07:58] LABS: BASOPHILS ABSOLUTE AUTO 0.02 K/mm3 (0.00-0.23); BASOPHILS PERCENT AUTO 0 % (0-2); EOSINOPHILS PERCENT AUTO 0 % (0-6); Hematocrit 28.1 % (37.0-53.0); IMMATURE GRAN ABSOLUTE AUTO 0.29 K/mm3 (0.00-0.10); IMMATURE GRAN PERCENT AUTO 2 % (0-1); LYMPHOCYTES ABSOLUTE AUTO 0.45 K/mm3 (0.84-5.20); LYMPHOCYTES PERCENT AUTO 3 % (21-46); MONOCYTES ABSOLUTE AUTO 0.44 K/mm3 (0.16-1.47); MONOCYTES PERCENT AUTO 3 % (4-13); Mean Corpuscular HGB 31.4 pg (26.0-34.0); Mean Corpuscular HGB Conc 28.5 g/dL (31.5-36.5); Mean Corpuscular Volume 110 fL (80-100); Mean Platelet Volume 10.7 fL (9.1-12.4); NEUTROPHILS ABSOLUTE AUTO 12.78 K/mm3 (1.96-9.15); NEUTROPHILS PERCENT AUTO 92 % (41-73); Platelet Count 304 K/mm3 (150-400); RDW Coefficient Variation 18.5 % (11.7-14.2); RDW Standard Deviation 75.2 fL (35.1-46.3); Red Blood Cell Count 2.55 M/mm3 (4.30-5.90); White Blood Cell Count 13.98 K/mm3 (4.00-11.30)
--- NOTE | 2019-04-03 15:05 | NUR ---
Per admit trigger, I met with Mr. Billings to offer information about Advanced Care planning. He already has a POLST in place signed @1 yr ago.
--- NOTE | 2019-04-03 17:21 | NUR ---
SHIFT SUMMARY PT ALERT AND ORIENTED. VS STABLE. O2 SATS REMAIN ABOVE 90% ON BIPAP. PT UNABLE TO TAKE BREAKS FROM BIPAP TODAY. 1U PRBC INFUSED PER ORDERS. PT REPOSITIONING HIMSELF IN BED. PT VOIDING IN URINAL NEEDED. REPORT GIVEN TO RATNA HERNANDEZ.
--- NOTE | 2019-04-03 21:10 | NUR ---
CARE ASSUMPTION PT A&O, FORGETFUL AT TIMES. VSS. SPO2 > 92% ON BIPAP 07/02, FIO2 50%. JEVITY 1.5 INFUSING VIA PEG TUBE PER ORDERS. WILL CONTINUE TO MONITOR AND PROVIDE CARE.
--- NOTE | 2019-04-04 05:07 | NUR ---
SHIFT SUMMARY PT A&O, FORGETFUL AT TIMES. VSS. PT WEARING BIPAP /, FIO2 45%. PT NOT TOLERATING BEING OFF BIPAP FOR LONGER THAN A FEW MOMENTS IN WHICH PT STATES "I FEEL LIKE I CAN'T BREATHE" DESPITE OXYMIZER USE. PT ALSO DESATING W/ GETTING UP TO SIDE OF BED WHILE WEARING BIPAP, REQUIRING INCREASE IN FIO2 DURING ACTIVITY. Q2H REPOSITIONING BY STAFF WHILE IN BED. PT CONTINUES TO BE NPO. TF INFUSING VIA PEG TUBE PER ORDERS. WILL CONTINUE TO MONITOR AND PROVIDE CARE UNTIL REPORT OFF TO DAY SHIFT RN.
[2019-04-04 09:59] LABS: Hematocrit 27.9 % (37.0-53.0); Hemoglobin 8.1 g/dL (13.5-17.5); Mean Corpuscular HGB 30.6 pg (26.0-34.0); Mean Platelet Volume 10.4 fL (9.1-12.4); Platelet Count 265 K/mm3 (150-400); RDW Coefficient Variation 20.8 % (11.7-14.2); RDW Standard Deviation 80.6 fL (35.1-46.3); Red Blood Cell Count 2.65 M/mm3 (4.30-5.90); White Blood Cell Count 9.28 K/mm3 (4.00-11.30)
[2019-04-04 10:12] LABS: Mean Corpuscular Volume 105 fL (80-100)
[2019-04-04 10:14] LABS: Alanine Aminotransfer (ALT/SGP 22 U/L (12-78); Albumin/Globulin Ratio 0.4 (0.8-1.8); Alk Phos 62 U/L (50-136); Anion Gap 4 mmol/L (6-16); Aspartate Aminotrans (AST/SGOT 15 U/L (12-37); Bilirubin, Total 0.2 mg/dL (0.1-1.0); Blood Urea Nitrogen 31 mg/dL (8-24); CO2, Blood 42 mmol/L (21-32); Calcium, Blood 8.6 mg/dL (8.5-10.1); Chloride, Blood 95 mmol/L (98-108); Creatinine, Blood 0.57 mg/dL (0.60-1.20); Globulin, Blood 4.8 g/dL (2.2-4.0); Glomerular Filtration Rate >60 (60-); Glucose, Blood 166 mg/dL (70-99); Potassium, Blood 3.8 mmol/L (3.5-5.5); Sodium, Blood 141 mmol/L (136-145); Total Protein, Blood 6.8 g/dL (6.4-8.2)
[2019-04-04 10:37] LABS: BAND PERCENT MAN 18 % (0-8); BASOPHILS PERCENT MAN 0 % (0-2); EOSINOPHILS PERCENT MAN 0 % (0-6); LYMPHOCYTES ABSOLUTE MAN 0.46 K/mm3 (0.84-5.20); LYMPHOCYTES PERCENT MAN 5 % (21-46); METAMYELOCYTE ABSOLUTE MAN 0.37 K/mm3 (0.00-0.00); METAMYELOCYTE PERCENT MAN 4 % (0-0); MONOCYTES ABSOLUTE MAN 0.46 K/mm3 (0.16-1.47); MONOCYTES PERCENT MAN 5 % (4-13); MYELOCYTE ABSOLUTE MAN 0.09 K/mm3 (0.00-0.00); MYELOCYTE PERCENT MAN 1 % (0-0); NEUTROPHILS ABSOLUTE MAN 7.88 K/mm3 (1.96-9.15); SEG NEUTROPHILS PERCENT MAN 67 % (41-73); TOTAL CELLS COUNTED 100
[2019-04-04 16:08] LABS: PO2 Arterial 91.8 mmHg (80-100); pH Blood Arterial 7.42 (7.35-7.45)
[2019-04-04 16:09] LABS: PCO2 Arterial 71.2 mmHg (35-45)
--- NOTE | 2019-04-04 17:25 | NUR ---
Shift Summary Pt with no acute changes this shift. VSS. Pt with progress with o2 therapy. Pt on BIPAP 14/6 at 40% Fi02; able to be taken off BIPAP from approx 1500 to present. Pt tolerating sitting in chair, [place] NC on 7L with o2 saturations at 97%. Pt denies SOB. Pt moderately DORMAN and mildly dyspneic with conversation. Regardless of continued education, pt asks for food/water PO this shift. Pt remains NPO, tube feedings goal rate increased to 50ml/hr. Pt tolerating new goal rate, 150 ml flush Q4 h. Tube feeding tubing changes this am at approx 1040. Pt is SBA, uses urninal at bedside, alert, remains confused as at baseline. Pt uses call light, call light in reach. Will continue monitoring and updating until report given to NOC RN and care is assumed.
[2019-04-05 04:39] LABS: pH Blood Arterial 7.42 (7.35-7.45)
[2019-04-05 04:40] LABS: PCO2 Arterial 72.1 mmHg (35-45)
--- NOTE | 2019-04-05 05:32 | NUR ---
SHIFT SUMMARY PT SLEEPING IN ROOM COMFORTABLY. NO ACUTE CHANGES IN STATUS T/O NIGHT. PT WORE BIPAP T/O NGHT AND TOLERATED WELL. RESP EVEN UNLABORED ON BIPAP W/ SATS >92%. DENIED PAIN. PT USED URINAL W/O ASSIST T/O NIGHT. DENIED PAIN. PIV SL. CALL LIGHT IN REACH.
[2019-04-05 09:32] LABS: Hematocrit 32.2 % (37.0-53.0); Hemoglobin 9.2 g/dL (13.5-17.5); Mean Corpuscular HGB 30.4 pg (26.0-34.0); Mean Corpuscular HGB Conc 28.6 g/dL (31.5-36.5); Mean Corpuscular Volume 106 fL (80-100); Mean Platelet Volume 10.7 fL (9.1-12.4); NRBC ABSOLUTE 0.02 K/mm3 (0.00-0.02); NRBC Auto 0.2 /100 WBC (0.0-0.2); Platelet Count 279 K/mm3 (150-400); RDW Standard Deviation 77.5 fL (35.1-46.3); Red Blood Cell Count 3.03 M/mm3 (4.30-5.90); White Blood Cell Count 10.45 K/mm3 (4.00-11.30)
[2019-04-05 09:47] LABS: Anion Gap 0 mmol/L (6-16); Blood Urea Nitrogen 27 mg/dL (8-24); Bun/Creatinine Ratio 52.1 (12.0-20.0); CO2, Blood 44 mmol/L (21-32); Calcium, Blood 8.7 mg/dL (8.5-10.1); Chloride, Blood 96 mmol/L (98-108); Creatinine, Blood 0.52 mg/dL (0.60-1.20); Glomerular Filtration Rate >60 (60-); Glucose, Blood 193 mg/dL (70-99); Potassium, Blood 3.8 mmol/L (3.5-5.5); Sodium, Blood 140 mmol/L (136-145)
[2019-04-05 09:56] LABS: BAND PERCENT MAN 19 % (0-8); BASOPHILS PERCENT MAN 0 % (0-2); EOSINOPHILS PERCENT MAN 0 % (0-6); LYMPHOCYTES ABSOLUTE MAN 0.83 K/mm3 (0.84-5.20); LYMPHOCYTES PERCENT MAN 8 % (21-46); METAMYELOCYTE ABSOLUTE MAN 0.31 K/mm3 (0.00-0.00); METAMYELOCYTE PERCENT MAN 3 % (0-0); MONOCYTES ABSOLUTE MAN 0.94 K/mm3 (0.16-1.47); MONOCYTES PERCENT MAN 9 % (4-13); MYELOCYTE PERCENT MAN 1 % (0-0); NEUTROPHILS ABSOLUTE MAN 8.25 K/mm3 (1.96-9.15); SEG NEUTROPHILS PERCENT MAN 60 % (41-73); TOTAL CELLS COUNTED 100
--- NOTE | 2019-04-05 14:37 | NUR ---
TRIALING TAKING OFF BIBPAP, ON OXYMIZER AT 8L O2. WILL CONTINUE TO MONITOR.
--- NOTE | 2019-04-05 17:59 | NUR ---
SHIFT SUMMARY PT A&Ox3. PT CALM AND MOSTLY COOPERATIVE WITH CARE. PT CONTINUES TO ASK FOR FOOD AND DRINKS, EDUCATED PT ON NPO STATUS SO HE DOSE NOTE CONTINUE TO ASPIRATE. PT DENIES PAIN AND NAUSEA DURING SHIFT. PT ON BIPAP / AT FIO2 40% FOR MAJORTY OF SHIFT, UP IN CHAIR ON 7L O2 VIAN HIGH FLOW NC, SPO2 >92%. PT RECEIVING IV ANTIBITOICS AND STEROIDS. VSS. NO OTHER ACUTE CHANGES NOTED DURING SHIFT WILL CONTINUE TO MONITOR UNITL REPORT GIVEN TO ONCOMING RN.
[2019-04-06 04:49] LABS: PO2 Arterial 68.4 mmHg (80-100)
--- NOTE | 2019-04-06 05:36 | NUR ---
SHIFT SUMMARY PT SLEEPING COMFORTABLY IN ROOM AT THIS TIME. NO ACUTE CHANGES IN STATUS T/O NIGHT. PT STARTED ON TRILOGY BIPAP W/ NEW SETTINGS PER PULM. PT CO2 LEVELS STILL CRITICALLY HIGH THIS AM, SEE LABS. RESP EVEN UNLABORED ON BIPAP W/ SATS 90-92%. PEG TUBE WNL, CONTINUOUS FEEDINGS INFUSING. PT HAS TKO SALINE INFUSING IN PIV. DENIES NEEDS. CALL LIGHT IN REACH.
[2019-04-06 10:44] LABS: Creatinine, Blood 0.58 mg/dL (0.60-1.20); Vancomycin, Trough 15.3 ug/mL (5.0-10.0)
--- NOTE | 2019-04-06 18:01 | NUR ---
SHIFT SUMMARY PT A&Ox3. FORGETFUL. CALM AND COOPERATIVE WITH CARE. CONTINUEING TO EDUCATED PT OF NPO STATUS. PT TRANSITIONS FROM CONTINOUS FEEDING TO BOLUS FEEDING DURING SHIFT. PEG WNL. PT DENIES PAIN AND NAUSEA, STATES HE IS HUNGRY. TOLERATING BOLUS FEEDING WELL. PT DENIES SOB, ON TRILOGY THIS AM, TRANSITIONED TO 4L VIA OXYMIZER THIS AFTERNOON. UP IN CHAIR THIS AFTERNOON. PT RECEIVING IV ANTIBIOTICS. VSS. NO OTHER ACUTE CHANGES NOTED DURING SHIFT. WILL CONTINUE TO MONITOR UNTIL REPORT GIVEN TO ONCOMING RN.
--- NOTE | 2019-04-07 06:02 | NUR ---
SHIFT SUMMARY PT HAS REMAINED AOX4 THROUGHOUT SHIFT. VSS. PLEASANT AND COOPERATIVE WITH CARE. PT HAS REMAINED ON HOME TRILOGY SINCE PLACEMENT AT APPROXIMATELY 2300 LAST NIGHT. O2 SATS HAVE REMAINED MOSTLY 89-94% ON TRILOGY WITH NEW SETTINGS. PT WITH OCCASIONAL DESATURATIONS WITH APNEIC PERIODS DOWN TO 87%, BUT RECOVERS SATS WITHIN 1 MINUTE. RESPIRATIONS HAVE REMAINED EVEN AND UNLABORED THROUGHOUT THE NIGHT. CARDIAC RHYTHM HAS REMAINED SINUS ERIC WITH PVCs AND PACs WITH A RATE IN THE 40-50s. PT WITH RATE TOUCHING HIGH 30s TO LOW 40s WITH APNEIC PERIODS, BUT QUICKLY INCREASED WITH REGULAR RATE OF BREATHING. CONTINUES TO USE URINAL AT BEDSIDE INDEPENDENTLY. PT CONTINUES TO ASK FOR FOOD AND DRINKS DESPITE NPO STATUS AND REQUIRES FREQUENT EDUCATION ON WHY NPO STATUS IS UTILIZED AND IMPORTANT TO MAINTAIN- DEMONSTRATES LITTLE UNDERSTANDING OR LACK OF INTEREST IN TOPIC. PT OFFERED FREQUENT ORAL CARE, MOUTH MOISTERIZER, CHAPSTICK, AND ORAL SWABS IN PLACE OF ORAL FLUIDS- EDUCATED ON UTILIZING THESE TECHNIQUES AT HOME. BOLUS FEEDING ADMINISTERED VIA PEG TUBE PER ORDERS. NO OTHER CHANGES NOTED FROM INITIAL ASSESSMENT. WILL CONTINUE TO MONITOR AND REPORT TO ONCOMING SHIFT RN. BED IN LOW POSITION, CALL LIGHT IN REACH. BED ALARM SET FOR SAFETY.
--- NOTE | 2019-04-07 07:41 | NUR ---
PCU DAYSHIFT ASSUMED CARE OF PT APPROX. 0700. PT A&OX4. ASSESSMENT COMPLETED. VITAL SIGNS STABLE. PT HEART RHTYHM NSR AT 59 AT THIS TIME. LUNG SOUNDS CLEAR T/O, ALTHOUGH LEFT UPPER CLEAR BUT DIM. PT REPORTS N&T IN BUE DUE TO RAYANADS. PEG TUBE REMAINS IN PLACES, PATENT. FLUSHED BEFORE TUBE FEEDING STARTED. PT HEAD OF BED UP GREATER THAN 30 DEGREE WITH TUBE FEEDING STARTED. PT HAS 4L OXYGEN VIA OXIMIZER AT THIS TIME WITH OXYGEN SATS 92-94%. PT HAS EVEN, UNLABORED BREATHING. PT REPORTS FEELING WELL AT THIS TIME. BED IN LOW POSITION, CALL LIGHT IN REACH AND PT DENIES ANY NEEDS. WILL CONTINUE TO MONITOR.
--- NOTE | 2019-04-07 13:34 | NUR ---
Spiritual care visit conducted. Patient is sitting on a chair and resting but easily awakens as I walk in the room. Patient openly shares about his family, his career and his hetal ([employer]). Patient admits to being "lax" in his spiritual commitments. I ask questions around this topic and provide pastoral student financial services counselor. I also provide prayer for patient for his health both physical and spiritual. Patient voices appreciation. I will continue to be available to patient and family.
--- NOTE | 2019-04-07 17:56 | NUR ---
IMM SIGNED BY PATIENT AND SENT TO MEDICAL RECORDS
--- NOTE | 2019-04-07 19:31 | NUR ---
SHIFT SUMMARY PT PLEASANT, COOPERATIVE AND USES CALL LIGHT APPRORPRIATELY. PT REMAINS A&OX4. ALTHOUGHT SLIGHTLY FORGETFUL AT TIMES. ASSESSMENT FINDINGS REMAIN UNCHANGED SINCE START OF SHIFT. PT REMAINS ON 4L OXYGEN VIA N.C. WITH OXYGEN SATS IN 90'S. PT ABLE TO PARTICIPATE WITH P.T. AND O.T. PT GOT UP TO THE CHAIR AROUND NOON AND HAS BEEN UP TO CHAIR SINCE THEN. PT ABLE TO AMBUALTE TO BEDSIDE COMMODE NEEDED AND TOLERATED WELL. PT BOLUS TUBE FEEDINGS COMPLETED THROUGH THE DAY. NO S/SX OF ACUTE DISTRESS. PT REMAINS IN CHAIR. CALL LIGHT IN REACH AND PT DENIES ANY NEEDS AT THIS TIME. WILL CONTINUE TO MONITOR UNTIL HANDOFF TO NIGHTSHIFT RN.
--- NOTE | 2019-04-08 05:33 | NUR ---
PCU NOC SHIFT SUMMARY PATIENT ALERT AND ORIENTED X4. PATIENT SLOW TO RESPOND - CHRONICALLY ILL AND A DNR. PATIENTS LUNG SOUNDS CLEAR TO DIM - HAS PEG TUBE IN LUQ OF ABD WITH BOLUS FEEDSING QID PER ORDERS. ON 4-5 LPM OXYMIZER WHILE AWAKE AND ON HOME TRIOLOGY BIPAP/VENT WITH 9-10 LPM BLEED IN. PATIENT DENIES ANY PAIN T/O SHIFT. HEART RATE REMAINS IN SINUS TO SINUS ERIC T/O SHIFT WITH NO EVENTS NOTED. PATIENT WORE TRIOLOGY WELL T/O SHIFT. TRANSFERED FROM CHAIR TO BED WITH SBA - PATIENT WORKING WITH PT/OT. PATIENT TO D/C HOME TO SNF PLACEMENT. WILL CONTINUE TO MONITOR AND REPORT TO DENNYS HERNANDEZ.
--- NOTE | 2019-04-08 08:59 | NUR ---
PCU DAYSHIFT ASSUMED CARE OF PT APPROX. 0700. PT A&OX. VITAL SIGNS STABLE. ASSESSMENT COMPLETED. PT REPROTS ABLE TO GET SOME REST LAST NIGHT. PT UP IN BED AT THIS TIME WITH 4L OXYGEN VIA OXIMIZER IN PLACE WITH OXYGEN SATS IN 90'S. PEG TUBE REMAINS IN PLACE AND INTACT. RESIDUAL CHECKED, FLUSHES WELL. PT REFUSED DOREEN HOSE OR SCD'S. REPORTS HE WILL MOVE AROUND IN ROOM TODAY. NEXT BOLUS FEEDING TO BE DONE AROUND 1030 THIS MORNING. BED IN LOW POSITION, CALL LIGHT IN REACH AND PT DENIES ANY NEEDS. WILL CONTINUE TO MONITOR.
[2019-04-08 11:00] LABS: Vancomycin, Trough 19.9 ug/mL (5.0-10.0)
--- NOTE | 2019-04-08 17:33 | NUR ---
SHIFT SUMMARY PT PLEASANT, COOPERATIVE AND USES CALL LIGHT APPROPRIATELY. PT REMAINS A&OX4. ASSESSMENT FINDINGS REMAIN UNCHANGED. VITAL SIGNS REMAIN STABLE. PEG TUBE REMAINS IN PLACE AND INTACT. BOLUS TUBE FEEDINGS GIVEN PER ORDERS THROUGHOUT DAY AND PT TOLERATED WELL. PT WORKED WITH P.T. AND O.T. TODAY. PT SPEND MOST OF SHIFT UP IN CHAIR. PT REMAINS ON 4L OXYGEN VIA OXIMIZER WITH OXYGEN SATS IN LOW 90'S. FAMILY AT BEDSIDE INTERMITTENTLY. PHYSICIAN IN TO SEE PT THIS EVENING. PT REMAINS IN CHAIR AT THIS TIME. CALL LIGHT IN REACH AND PT DENIES ANY NEEDS AT THIS TIME. WILL CONTINUE TO MONITOR UNTIL HANDOFF TO NIGHTSHIFT RN.
--- NOTE | 2019-04-08 21:04 | NUR ---
ASSUMED CARE OF PATIENT AT APPROXIMATELY 1905 FROM SARABJIT Maldonado RN. PATIENT ALERT AND ORIENTED X4; FORGETFUL AT TIMES; IRRITABLE AT TIMES; REFUSES ORAL CARE, SCDS AND SUCTION. PATIENT DENIES PAIN, DIZZINESS AND NAUSEA. PATIENT WAS SITTING UP IN CHAIR DURING BEDSIDE REPORT; AN OPEN CONTAINER OF JEVITY 1.5 WAS SITTING ON BEDSIDE TABLE WITH LID OFF; PATIENT ASKED BY PCU CUPOLA HOIST OPERATOR IF HE ATE THE JEVITY AND PATIENT REPORTS DID NOT. PATIENT REPORTED LATER TO THIS RN THAT HE WOULD LIKE A STEAK, POTATO AND SMALL SALAD. NSR ON TELE; OXYGEN SATURATION ABOVE 90% ON 4-5LPM VIA OXYMIZER; HOME TRILOGY IN PLACE. THIS RN FLUSEHD WITH 30ML OF WATER AND PULLED 905ML OF RISIDUAL; DISCUSSED WITH CUPOLA HOIST OPERATOR GM Lindsay, AND 55 INFUSED BACK INTO RISIDUAL; ONE OF TWO 1.5 JEVITY CONTAINERS FED TO GRAVITY WITH ANOTHER 30ML WATER INFUSED. PIV INFUSING IV ABX. PATIENT CURRENTLY RESTING IN BED; CALL LIGHT IN REACH; BE IN LOWEST POSISTION; BED ALARM ON; WILL CONTINUE TO MONITOR AND ASSESS UNTIL END OF SHIFT.
--- NOTE | 2019-04-08 21:52 | NUR ---
CALLED PAM CELESTIN TO REPORT 5 RUN OF VTAC; PATIENT ASYMPTOMATIC AND LARGE AMOUNT OF RESIDUAL IN PEG TUBE. PATIENT NOT NAUSEOUS OR DID NOT FEEL FULL. ORDERS RECIEVED. ALSO CHANGED PO COLACE TO PT WITH ORDER FROM PAM CELESTIN.
[2019-04-08 22:25] LABS: Anion Gap 3 mmol/L (6-16); Blood Urea Nitrogen 31 mg/dL (8-24); Bun/Creatinine Ratio 51.2 (12.0-20.0); CO2, Blood 42 mmol/L (21-32); Calcium, Blood 8.3 mg/dL (8.5-10.1); Chloride, Blood 95 mmol/L (98-108); Creatinine, Blood 0.61 mg/dL (0.60-1.20); Glomerular Filtration Rate >60 (60-); Glucose, Blood 202 mg/dL (70-99); Magnesium, Blood 2.4 mg/dL (1.6-2.4); Potassium, Blood 3.8 mmol/L (3.5-5.5); Sodium, Blood 140 mmol/L (136-145)
--- NOTE | 2019-04-09 06:35 | NUR ---
NO ACUTE CHANGES TO REPORT. PATIENT SLEPT WITH HOME TRILOGY ON FOR MOST OF NIGHT. RESIDUAL 0 THIS AM. VSS. WILL CONTINUE TO MONITOR AND ASSESS UNTIL END OF SHIFT.
--- NOTE | 2019-04-09 10:08 | NUR ---
Soham was assisted to take off his trilogy this morning, assisted with oral care while sitting on the side of the bed, wearing oxymizer at 6 l/min O2 delivery. He tolerated this well. Stated that he wanted to sit in the chair, so he used the walker and was helped to the chair while wearing the gait belt. Residual of PEG tube checked, found 10 cc clear liquid. Medications and bolus feeding were delivered through the PEG tube while he was sitting up in the chair, which he tolerated well. His was at the bedside at the time, pleasantly conversant. She states that he is home alone for short periods of time, but she feels that he could manage well at home with just home health for PT/OT. Call from Pharmacist Milo Mahajan to ask if Zosyn could be discontinued as it is the 5th day of the IV medication. Will talk to the rounding primary physician today about this.
[2019-04-09] MEDS ORDERED: Prednisone10 MG PO (14:04)
[2019-04-09] MEDS ORDERED: Potassium20 MEQ/11 PT (14:07)
--- NOTE | 2019-04-09 15:28 | NUR ---
Discharge instructions were reviewed with Laura, Soham's . She is taking papers over to the [facility] to set up home health while waiting for [facility] to bring oxygen for use during the transportation home. Soham's IVs were removed, Telemetry box removed, and second bolus tube feeding was given of the day. Assisted him with dressing for going home. He is sitting up in the chair, no complaints or needs voiced at this time.
[2019-06-16] MEDS ORDERED: Pulmicort0.5 MG/2 M INH (14:05)
[2019-06-16] MEDS ORDERED: LONHALA MA25 MCG/11 (14:07)
[2019-06-16] MEDS ORDERED: [UNRECOGNIZED DRUG - OTHER] PO (14:07)
== END 2019-04-09 16:16 | disposition home health service (06) | DRG 177 ==
LOC: ER 07:02 → PCU 09:27
PROVIDERS: Emergency Medicine; Internal Medicine; Internal Medicine Critical Care Medicine; Nurse Practitioner Acute Care; Pharmacist; ADMIT Family Medicine
PROC: 5A09357 Assistance with Respiratory Ventilation, Less than 24 Consecutive Hours, Continuous Positive Airway Pressure (ICD-10-PCS; principal; 2019-04-02)
PROC: 30233N1 Transfusion of Nonautologous Red Blood Cells into Peripheral Vein, Percutaneous Approach (ICD-10-PCS; 2019-04-03)
DX: J69.0 Pneumonitis due to inhalation of food and vomit (principal); J96.21 Acute and chronic respiratory failure with hypoxia; J96.22 Acute and chronic respiratory failure with hypercapnia; G93.49 Other encephalopathy; Z99.81 Dependence on supplemental oxygen; J43.9 Emphysema, unspecified; K22.2 Esophageal obstruction; R13.12 Dysphagia, oropharyngeal phase; D64.9 Anemia, unspecified; I10 Essential (primary) hypertension; F03.90 Unspecified dementia, unspecified severity, without behavioral disturbance, psychotic disturbance, mood disturbance, and anxiety; I25.10 Atherosclerotic heart disease of native coronary artery without angina pectoris; I73.9 Peripheral vascular disease, unspecified; Z66 Do not resuscitate; Z93.1 Gastrostomy status; Z88.8 Allergy status to other drugs, medicaments and biological substances; Z87.891 Personal history of nicotine dependence; Z95.5 Presence of coronary angioplasty implant and graft; Z95.828 Presence of other vascular implants and grafts; Z79.01 Long term (current) use of anticoagulants; Z86.718 Personal history of other venous thrombosis and embolism
CPT/HCPCS: 36415; 36430; 36600; 71045; 80048; 80053; 80202; 82565; 82803; 83605; 83735; 84100; 85025; 86850; 86900; 86901; 86923; 87040; 87070; 87077; 87186; 87205; 93005; 93010; 94640; 94644; 94660; 94761; 94762; 96365; 96367; 97110; 97161; 97166; 97530; 97535; 99285-25; J0456; J0696; J2543; J2930; J3370; J7050; J7512; P9016

== ENCOUNTER 2019-06-06 15:17 | Day surgery (SDC) | payer MEDICARE, OTHER ==
[~2019-06-06] VITALS: Ht 167.6 cm; Wt 59.5 kg
[~2019-06-06 15:17] MED LIST changes: +Brovana15 MCG/2 M INH; +CLOP75 PO; +Potassium20 MEQ/11 PT; +Prednisone10 MG PO
--- NOTE | 2019-06-06 17:29 | NUR ---
06/06/[address] HERE TO PROVIDE ANESTHESIA CARE FOR THE PATIENT, PLEASE SEE ANESTHESIA RECORD FOR DETAILS. History, Chart, Medications and Allergies reviewed before start of procedure. Patient confirms NPO status and agrees with scheduled surgery. PATIENT CONFIRMS NPO STATUS AND AGREES WITH SCHEDULED PROCEDURE. MONITOR INTACT WITH CONTINUOUS PULSE OXIMETRY AND INTERMITTENT BP. O2 VIA N/C INTACT THROUGHOUT SEDATION/PROCEDURE.
--- NOTE | 2019-06-06 18:27 | NUR ---
PATIENT'S DENTURES CLEANED AND RETURNED TO PATIENT'S MOUTH.
[2019-06-16] MEDS ORDERED: Pulmicort0.5 MG/2 M INH (14:05)
[2019-06-16] MEDS ORDERED: [UNRECOGNIZED DRUG - OTHER] PO (14:07)
[2019-06-16] MEDS ORDERED: LONHALA MA25 MCG/11 (14:07)
== END 2019-06-06 23:49 | disposition home or self-care (01) ==
LOC: ORSCMMR 15:17
PROVIDERS: Internal Medicine Gastroenterology
PROC: 0D758ZZ Dilation of Esophagus, Via Natural or Artificial Opening Endoscopic (ICD-10-PCS; principal; 2019-06-06 09:15)
PROC: 0D20XUZ Change Feeding Device in Upper Intestinal Tract, External Approach (ICD-10-PCS; principal; 2019-06-06 09:15)
DX: K94.23 Gastrostomy malfunction (principal); K94.22 Gastrostomy infection; K94.29 Other complications of gastrostomy; K22.2 Esophageal obstruction; R13.10 Dysphagia, unspecified; K21.9 Gastro-esophageal reflux disease without esophagitis; I10 Essential (primary) hypertension; I25.2 Old myocardial infarction; I48.91 Unspecified atrial fibrillation; G47.33 Obstructive sleep apnea (adult) (pediatric); Z79.899 Other long term (current) drug therapy
CPT/HCPCS: C1726; J2704; J7120

== ENCOUNTER 2019-06-13 14:30 | Emergency (ER) | payer MEDICARE, OTHER ==
[~2019-06-13] VITALS: Ht 167.6 cm; Wt 54.4 kg
[2019-06-16] MEDS ORDERED: Pulmicort0.5 MG/2 M INH (14:05)
[2019-06-16] MEDS ORDERED: [UNRECOGNIZED DRUG - OTHER] PO (14:07)
[2019-06-16] MEDS ORDERED: LONHALA MA25 MCG/11 (14:07)
== END 2019-06-13 17:45 | disposition home or self-care (01) ==
LOC: ER 14:30
DX: Z43.1 Encounter for attention to gastrostomy (principal); J44.9 Chronic obstructive pulmonary disease, unspecified; I48.91 Unspecified atrial fibrillation; I11.0 Hypertensive heart disease with heart failure; I50.9 Heart failure, unspecified; Z79.899 Other long term (current) drug therapy; Z87.891 Personal history of nicotine dependence
CPT/HCPCS: 49465; 99283-25; Q9963

== ENCOUNTER 2019-06-24 12:35 | Day surgery (SDC) | payer MEDICARE, OTHER ==
[~2019-06-24] VITALS: Ht 166 cm; Wt 59.9 kg
[~2019-06-24 12:35] MED LIST changes: +LONHALA MA25 MCG/11; +[UNRECOGNIZED DRUG - OTHER] PO
--- NOTE | 2019-06-24 13:31 | NUR ---
INTO SDS VIA W/C. ABLE TO STAND AND TRANSFER INDEPENDENT. Patient confirms NPO status and agrees with scheduled surgery. History, Chart, Medications and Allergies reviewed before start of procedure.
--- NOTE | 2019-06-24 13:44 | NUR ---
PATIENT WITH PROLONGED EXP PHASE. DECREASED T/O. NOTIFIED DR. DEAL OF LUNG SOUNDS
--- NOTE | 2019-06-24 14:08 | NUR ---
06/24/19 1408 [facility] [place] CASE WITH DR. DEAL. SEE ANETHESIA RECORD FOR CARE
--- NOTE | 2019-06-24 15:37 | NUR ---
Patient up to Ambulate with stand by assist. Gait steady. Discharge instructions reviewed with patient's . Patient's verbalizes understanding. Copy given to patient's to take home. Discharged via wheelchair to private car for ride home.
== END 2019-06-24 15:34 | disposition home or self-care (01) ==
LOC: ORSCMMR 12:35 → ORSCSDS 12:35 → ORSCMMR 12:43 → ORSCSDS 13:30 → ORSCMMR 15:34
PROVIDERS: Internal Medicine Gastroenterology
PROC: 0DH63UZ Insertion of Feeding Device into Stomach, Percutaneous Approach (ICD-10-PCS; principal; 2019-06-24 14:00)
PROC: 0D758ZZ Dilation of Esophagus, Via Natural or Artificial Opening Endoscopic (ICD-10-PCS; principal; 2019-06-24 14:00)
PROC: 0DC58ZZ Extirpation of Matter from Esophagus, Via Natural or Artificial Opening Endoscopic (ICD-10-PCS; principal; 2019-06-24 14:00)
DX: K22.2 Esophageal obstruction (principal); R13.14 Dysphagia, pharyngoesophageal phase; I25.10 Atherosclerotic heart disease of native coronary artery without angina pectoris; J44.9 Chronic obstructive pulmonary disease, unspecified; G47.33 Obstructive sleep apnea (adult) (pediatric); Z87.891 Personal history of nicotine dependence; K21.9 Gastro-esophageal reflux disease without esophagitis; F03.90 Unspecified dementia, unspecified severity, without behavioral disturbance, psychotic disturbance, mood disturbance, and anxiety; E46 Unspecified protein-calorie malnutrition; I50.9 Heart failure, unspecified; Z79.899 Other long term (current) drug therapy; Z79.82 Long term (current) use of aspirin; Z79.01 Long term (current) use of anticoagulants; N18.9 Chronic kidney disease, unspecified
CPT/HCPCS: C1726; C1769; J0690; J2704; J7120

== ENCOUNTER → 2019-07-17 | Outpatient (CLI) | payer MEDICARE, OTHER ==
[~2019-07-17] MED LIST changes: +AMOCLA500 PO; +B-1100 M1 PT; +BUDE.25 NEB; +Cough Syru100 MG/5 M PO; +Duoneb 2.5-0.5 M3 ML INH; +FOLI1 PT; +FURO40 PO; +GABA300 PO; +GLYC2; +LIDO700A20 TOP; +LONHALA MA25 MCG/11 INH; +OMEPRAZOLE20 MG; +OMEPRAZOLE20 MG PO; +OXYGEN; +PANTOPRAZOLE SO40 M2 PO; +PRED10 PT; +Potassium20 MEQ/11 PO; +ZINC15 PO; +[UNRECOGNIZED DRUG - OTHER] INH
[2019-07-17 12:17] LABS: Alanine Aminotransfer (ALT/SGP 30 U/L (12-78); Albumin, Blood 2.8 g/dL (3.4-5.0); Albumin/Globulin Ratio 0.5 (0.8-1.8); Alk Phos 73 U/L (50-136); Anion Gap 2 mmol/L (6-16); Aspartate Aminotrans (AST/SGOT 25 U/L (12-37); Bilirubin, Total 0.4 mg/dL (0.1-1.0); Blood Urea Nitrogen 23 mg/dL (8-24); Bun/Creatinine Ratio 31.9 (12.0-20.0); CO2, Blood 42 mmol/L (21-32); Calcium, Blood 9.5 mg/dL (8.5-10.1); Chloride, Blood 96 mmol/L (98-108); Creatinine, Blood 0.72 mg/dL (0.60-1.20); Globulin, Blood 5.3 g/dL (2.2-4.0); Glomerular Filtration Rate >60 (60-); Glucose, Blood 86 mg/dL (70-99); Potassium, Blood 3.9 mmol/L (3.5-5.5); Sodium, Blood 140 mmol/L (136-145); Total Protein, Blood 8.1 g/dL (6.4-8.2)
== END | disposition home or self-care (01) ==
LOC: LAB SHORT 10:00 → OLS 10:00
PROVIDERS: Family Medicine
DX: K21.0 Gastro-esophageal reflux disease with esophagitis (principal); R60.0 Localized edema
CPT/HCPCS: 80053

== ENCOUNTER 2019-08-04 06:45 | Inpatient (IN) | payer MEDICARE, OTHER ==
[~2019-08-04] VITALS: Ht 172.7 cm; Wt 66.1 kg
[~2019-08-04 06:45] MED LIST changes: -AMOCLA500 PO; -B-1100 M1 PT; -BUDE.25 NEB; -Cough Syru100 MG/5 M PO; -Duoneb 2.5-0.5 M3 ML INH; -FOLI1 PT; -FURO40 PO; -GABA300 PO; -GLYC2; -LIDO700A20 TOP; -LONHALA MA25 MCG/11 INH; -OMEPRAZOLE20 MG; -OMEPRAZOLE20 MG PO; -OXYGEN; -PANTOPRAZOLE SO40 M2 PO; -PRED10 PT; -Potassium20 MEQ/11 PO; -ZINC15 PO; -[UNRECOGNIZED DRUG - OTHER] INH
[2019-08-04] MEDS ORDERED: OXYGEN (07:12)
[2019-08-04] MEDS ORDERED: OMEP20ER PO (07:12)
[2019-08-04] MEDS ORDERED: ALBU3IS INH (07:13)
[2019-08-04] MEDS ORDERED: BUDE.25 NEB (07:13)
[2019-08-04] MEDS ORDERED: Brovana15 MCG/2 M INH (07:14)
[2019-08-04] MEDS ORDERED: GABA300 PO (07:15)
[2019-08-04] MEDS ORDERED: LONHALA MA25 MCG/11 INH (07:15)
[2019-08-04] MEDS ORDERED: FURO20 PO (07:16)
[2019-08-04 07:39] LABS: Hematocrit 28.5 % (37.0-53.0); Hemoglobin 8.4 g/dL (13.5-17.5); Mean Corpuscular HGB 33.3 pg (26.0-34.0); Mean Corpuscular HGB Conc 29.5 g/dL (31.5-36.5); Mean Corpuscular Volume 113 fL (80-100); Mean Platelet Volume 10.2 fL (9.1-12.4); Platelet Count 377 K/mm3 (150-400); RDW Coefficient Variation 17.2 % (11.7-14.2); RDW Standard Deviation 71.4 fL (35.1-46.3); Red Blood Cell Count 2.52 M/mm3 (4.30-5.90); White Blood Cell Count 10.85 K/mm3 (4.00-11.30)
[2019-08-04 08:01] LABS: BAND PERCENT MAN 9 % (0-8); BASOPHILS PERCENT MAN 0 % (0-2); EOSINOPHILS ABSOLUTE MAN 0.43 K/mm3 (0.00-0.68); EOSINOPHILS PERCENT MAN 4 % (0-6); LYMPHOCYTES ABSOLUTE MAN 1.84 K/mm3 (0.84-5.20); LYMPHOCYTES PERCENT MAN 17 % (21-46); METAMYELOCYTE ABSOLUTE MAN 0.21 K/mm3 (0.00-0.00); METAMYELOCYTE PERCENT MAN 2 % (0-0); MONOCYTES ABSOLUTE MAN 2.92 K/mm3 (0.16-1.47); MONOCYTES PERCENT MAN 27 % (4-13); MYELOCYTE PERCENT MAN 1 % (0-0); NEUTROPHILS ABSOLUTE MAN 5.31 K/mm3 (1.96-9.15); SEG NEUTROPHILS PERCENT MAN 40 % (41-73); TOTAL CELLS COUNTED 100
[2019-08-04 08:03] LABS: Alanine Aminotransfer (ALT/SGP 24 U/L (12-78); Albumin, Blood 2.6 g/dL (3.4-5.0); Albumin/Globulin Ratio 0.5 (0.8-1.8); Alk Phos 73 U/L (50-136); Anion Gap 2 mmol/L (6-16); Aspartate Aminotrans (AST/SGOT 32 U/L (12-37); Bilirubin, Total 0.6 mg/dL (0.1-1.0); Blood Urea Nitrogen 27 mg/dL (8-24); Bun/Creatinine Ratio 39.6 (12.0-20.0); CO2, Blood 42 mmol/L (21-32); Calcium, Blood 9.4 mg/dL (8.5-10.1); Chloride, Blood 93 mmol/L (98-108); Creatinine, Blood 0.68 mg/dL (0.60-1.20); Globulin, Blood 5.5 g/dL (2.2-4.0); Glomerular Filtration Rate >60 (60-); Glucose, Blood 121 mg/dL (70-99); Potassium, Blood 4.4 mmol/L (3.5-5.5); Sodium, Blood 137 mmol/L (136-145); Total Protein, Blood 8.1 g/dL (6.4-8.2); Troponin I <0.015 ng/mL (0.000-0.040)
[2019-08-04 08:42] LABS: Base Excess Venous 16.1 mmol/L; Bicarbonate Venous 37.2 mmol/L (24.0-30.0); PCO2 Venous 104 mmHg (38-42); PO2 Venous 171 mmHg (38-42); pH Blood Venous 7.23 (7.34-7.37)
--- NOTE | 2019-08-04 09:40 | NUR ---
PT ARRIVES TO UNIT FROM ER AT 0930. , celia BETTS PT. PT ARRIVES ON BIPAP 09/04, 80%. PT OPENS EYES TO VERBAL STIMULI. FOLLOWS SIMPLE DIRECTIONS. WHEN ASKED IF HE KNOWS WHERE HE IS AT, PT NODS YES. LUNGS COARSE THROUGHOUT. O2 SATS, HIGH 90'S. RT TO TITRATED FIO2 DOWN. PEG TUBE TO ABD, REDNESS NOTED AROUND INSERTION SITE, BROWN CRUST, SO STATES THIS IS JEVITY. CLEANED AND DRESSING PLACED. ABD ROUND, SOFT NON TENDER. BT X 4. SO STATES PT TAKES NOTHING BY MOUTH. EDEMA NOTED TO LOWER LEGS. REDNESS AND SCALING. SO REPORTS LEG SWELLING IMPROVED. ALSO REPORTS PT TYPICALLY ABLE TO AMB 10 FT FOR TRANSFERS, DIFFICULTIES RECENTLY D/T DYSPNEA. HOME O2 DEPT AT 5L. STATES HE HAS NOT BEEN WEARING BIPAP AT NIGHT D/T PRESSURE IN MASK. DR CHRISTIAN IN ROOM FOR ASSESSMENT. WILL CONTINUE TO MONITOR.
[2019-08-04 09:59] LABS: Adenovirus Not Detected (NOT DETECT); Bordetella pertussis Not Detected (NOT DETECT); Chlamydophila pneumoniae Not Detected (NOT DETECT); Coronavirus 229E Not Detected (NOT DETECT); Coronavirus HKU1 Not Detected (NOT DETECT); Coronavirus NL63 Not Detected (NOT DETECT); Coronavirus OC43 Not Detected (NOT DETECT); Human Metapneumovirus Not Detected (NOT DETECT); Human Rhinovirus/Enterovirus Not Detected (NOT DETECT); Influenza A Not Detected (NOT DETECT); Influenza A/2009-H1 Not Detected (NOT DETECT); Influenza A/H1 Not Detected (NOT DETECT); Influenza A/H3 Not Detected (NOT DETECT); Influenza B Not Detected (NOT DETECT); Mycoplasma pneumoniae Not Detected (NOT DETECT); Parainfluenza Virus 1 Not Detected (NOT DETECT); Parainfluenza Virus 2 Not Detected (NOT DETECT); Parainfluenza Virus 3 Not Detected (NOT DETECT); Parainfluenza Virus 4 Not Detected (NOT DETECT); Respiratory Syncytial Virus Not Detected (NOT DETECT)
[2019-08-04 12:02] LABS: PCO2 Arterial > 105 mmHg (35-45); PO2 Arterial 71.7 mmHg (80-100); pH Blood Arterial 7.21 (7.35-7.45)
[2019-08-04 16:27] LABS: PO2 Arterial 56.9 mmHg (80-100)
[2019-08-04 16:28] LABS: PCO2 Arterial 95.2 mmHg (35-45)
--- NOTE | 2019-08-04 17:44 | NUR ---
SHIFT SUMMARY PT REMAINS ON BIPAP 18/8 50%. O2 SATS MID 90'S. PT DESATS EASILY c REPOSITIONING. LUNGS REMAIN COARSE, DIMINISHED IN BASES. PT WAKES c VERBAL STIMULI. ANSWERS YES/NO QUESTIONS. FOLLOWS SIMPLE COMMANDS. TUBE FEEDS STARTED THROUGH PEG TUBE, JEVITY 1.5 INFUSING AT 25 ML/HR, FLUSH Q4 50 ML. RESIDUALS 210 ML. [facility] CONCERNED PT MAY ATTEMPT TO GET OUT OF BED DURING THE NIGHT, BED ALARM SET. REPORT TO ONCOMING NURSE.
--- NOTE | 2019-08-04 22:46 | NUR ---
TUBE FEED AT START OF SHIFT PEG TUBE DRESSING NOTED TO BE SATURATED IN TUBE FEED LIKE CONTENT. DRESSING CHANGED. SITE ASSESSED AND CONTINUES TO BE RED SURROUNDING PEG TUBE. JEVITY 1.5 INFUSING AT INITIAL RATE OF 25 ML/HR. MEDS GIVEN, SITE FLUSHED WITH NO PROBLEMS. RESIDUAL 10 ML. INCREASED RATE TO 35 ML/HR AND RESTARTED. APPROX 1 HOUR LATER, SITE NOTED TO BE DISCONNECTED. ATTEMPTED TO RECONNECT AND PRESSURE IN PEG TUBE CONTIUES TO DISCONNECT. TUBE FEED LEFT DISCONNECTED, PEG TUBE FLUSHED WITH 20 ML. FOLLOWING THIS, SMALL PORT OF PEG TUBE NOTED TO OPEN UP AND HAVE PRESSURIZED LIQUID COMING OUT OF IT. ALLOWED TO DRAIN UNTIL FLOW SLOWED. APPROX 50 ML OUTPUT OF TUBE FEED LIKE CONTENT OUTPUT. WILL LEAVE DISCONNECTED UNTIL HOSPITALIST ROUNDING FOR FURTHER ASSESSMENT. ASSESSMENT.
--- NOTE | 2019-08-04 22:57 | NUR ---
CARE ASSUMED REPORT RECEIVED, CARE ASSUMED AT 1900 AFTER REPORT FROM MARY SETHI. UPON ASSUMING CARE, PT RESTING QUIETLY IN BED WITH BIPAP IN PLACE. VITALS STABLE. TUBE FEED INFUSING. PT RESPONDING TO SIMPLE QUESTIONS. FOLLOWING DIRECTIONS, BUT FORGETFUL AND DISORIENTED. SINCE ASSUMING CARE, PT HAS BECOME MORE ALERT AND TALKATIVE. HOWEVER, HE DOES FREQUENTLY TAKE OFF MEDICAL EQUIPMENT, FORGET REORIENTATION, AND HAS DIFFICULTY EXPRESSING NEEDS. PT HAS CONTINUED TO REQUIRE BIPAP WHEN TAKEN OFF FOR ORAL CARE PT QUICKLY DESATURATES INTO MID 70'S AND TAKES A FEW MINUTES TO RECOVER. SEE ASSESSMENTS/FLOWSHEETS. PT'S , [facility]PES[facility] UPDATED ON PT CONDITION SHE CALLED REQUESTING UPDATE.
--- NOTE | 2019-08-05 00:20 | NUR ---
RESPIRATORY STATUS PT PLACED ON HIGH FLOW NASAL CANNULA 15 LPM BY RESPIRATORY. PT TOLERATED FOR APPROX 45 MINUTES AND THEN BEGAN DESATURATING INTO 70'S. PT PLACED BACK ON BIPAP, AND NOTED TO HAVE WET, PRODUCTIVE COUGH. BIPAP TAKEN OFF AND COPIOUS AMOUNTS OF THICK MUCOUS SECRETIONS SUCTIONED. PT FOLLOWING COMMANDS TO COUGH AND OPEN MOUTH, BUT NOT ABLE TO BRING SECRETIONS TO FRONT OF MOUTH. ABLE TO RETRIEVE WITH YONKOUR. 02 SAT'S IMPROVED TO MID 80'S. BIPAP PLACED BACK ON AND SINCE THEN PT HAS BEEN RESTING QUITELY WITH BIPAP IN PLACE. 02 SAT 90'S.
[2019-08-05 03:41] LABS: BASOPHILS ABSOLUTE AUTO 0.01 K/mm3 (0.00-0.23); BASOPHILS PERCENT AUTO 0 % (0-2); EOSINOPHILS ABSOLUTE AUTO 0.01 K/mm3 (0.00-0.68); EOSINOPHILS PERCENT AUTO 0 % (0-6); Hematocrit 28.1 % (37.0-53.0); Hemoglobin 8.2 g/dL (13.5-17.5); IMMATURE GRAN ABSOLUTE AUTO 0.22 K/mm3 (0.00-0.10); IMMATURE GRAN PERCENT AUTO 1 % (0-1); LYMPHOCYTES ABSOLUTE AUTO 0.31 K/mm3 (0.84-5.20); LYMPHOCYTES PERCENT AUTO 2 % (21-46); MONOCYTES PERCENT AUTO 3 % (4-13); Mean Corpuscular HGB 33.1 pg (26.0-34.0); Mean Corpuscular HGB Conc 29.2 g/dL (31.5-36.5); Mean Corpuscular Volume 113 fL (80-100); Mean Platelet Volume 10.5 fL (9.1-12.4); NEUTROPHILS ABSOLUTE AUTO 14.64 K/mm3 (1.96-9.15); NEUTROPHILS PERCENT AUTO 93 % (41-73); Platelet Count 356 K/mm3 (150-400); RDW Coefficient Variation 16.7 % (11.7-14.2); Red Blood Cell Count 2.48 M/mm3 (4.30-5.90); White Blood Cell Count 15.69 K/mm3 (4.00-11.30)
--- NOTE | 2019-08-05 03:59 | NUR ---
CARDIAC RHYTHM PREVIOUSLY HR REGULAR, NO VISIBLE P WAVES. PT NOTED TO HAVE OCCASIONAL IRREGULAR BEATS. SOME P WAVES PRESENT, NOT ABLE TO FIND CONSISTENT TREND TO IDENTIFY RHYTHM. BP STABLE. PT DENIES PAIN, DIZZINESS OR INCREASED SHORTNESS OF BREATH. SEE PAPER CHARTING FOR RHYTHM STRIPS. NOTED THAT ER PHYSICIAN DOCUMENTATION NOTES HX OF ATRIAL FIBRILLATION AND VARIOUS EKG'S ON PAPER CHART SHOW RHYTHMS WITH ABNORMAL RHYTHM AND P WAVES. WILL DISCUSS IRREGULARITY WITH DAY SHIFT RN TO BE ADDRESSED DURING PHYSICIAN ROUNDING.
[2019-08-05 04:05] LABS: Anion Gap 2 mmol/L (6-16); Blood Urea Nitrogen 42 mg/dL (8-24); Bun/Creatinine Ratio 50.2 (12.0-20.0); CO2, Blood 41 mmol/L (21-32); Calcium, Blood 9.3 mg/dL (8.5-10.1); Chloride, Blood 95 mmol/L (98-108); Creatinine, Blood 0.84 mg/dL (0.60-1.20); Glomerular Filtration Rate >60 (60-); Glucose, Blood 142 mg/dL (70-99); Magnesium, Blood 2.7 mg/dL (1.6-2.4); Phosphorus, Blood 3.5 mg/dL (2.5-4.9); Potassium, Blood 4.9 mmol/L (3.5-5.5); Sodium, Blood 138 mmol/L (136-145)
[2019-08-05 04:07] LABS: Percent Saturation 17.1 % (20.0-50.0)
[2019-08-05 04:59] LABS: PCO2 Arterial 79.6 mmHg (35-45); PO2 Arterial 83.8 mmHg (80-100); pH Blood Arterial 7.36 (7.35-7.45)
[2019-08-05 05:06] LABS: BAND PERCENT MAN 27 % (0-8); BASOPHILS PERCENT MAN 0 % (0-2); EOSINOPHILS PERCENT MAN 0 % (0-6); LYMPHOCYTES ABSOLUTE MAN 0.31 K/mm3 (0.84-5.20); LYMPHOCYTES PERCENT MAN 2 % (21-46); MONOCYTES ABSOLUTE MAN 0.31 K/mm3 (0.16-1.47); MONOCYTES PERCENT MAN 2 % (4-13); NEUTROPHILS ABSOLUTE MAN 15.06 K/mm3 (1.96-9.15); SEG NEUTROPHILS PERCENT MAN 69 % (41-73); TOTAL CELLS COUNTED 100
--- NOTE | 2019-08-05 06:44 | NUR ---
SUMMARY AFTER BEING AWAKE MAJORITY OF NIGHT, PT ABLE TO REST FOR A FEW HOURS THIS MORNING WITHOUT NEEDING CONSTANT REDIRECTION/REORIENTATION. PT KNOWS NAME AND LOCATION. CONTINUES TO BE CONFUSED ABOUT SITUATION BUT IS REDIRECTABLE. PT STRUGGLING TO EXPRESS NEEDS SAYING, "I NEED HELP, I NEED HELP," BUT UNABLE TO ARTICULATE WHAT HE NEEDS HELP WITH. PT SETTLES WITH USE OF URINAL AND REPOSITIONG. PT HAS HAD SHORT BREAKS FROM BIPAP FOR 15 LPM NASAL CANNULA, BUT OTHERWISE HAS BEEN ON BIPAP. FIO2 TITRATED UP TO 55% THIS MORNING AFTER PT MAINTAINING 02 SATURATION IN MID 80'S. PEG TUBE SITE CULTURED PER ORDERS AND SENT TO LAB. HEART RHTYHM CONTINUES TO BE IRREGULAR. PT ASYMPTOMATIC.
--- NOTE | 2019-08-05 07:12 | NUR ---
REPORT TO MARY GOMEZ TO ASSUME CARE
--- NOTE | 2019-08-05 08:00 | NUR ---
AM ASSESSMENT Spouse at bedside. Pt A&O x 2. Able to answer questions. Able to follow commands. Pt wears 5 LPM NC at home. Pt on BiPAP, 18/8 FiO2 50%. 0 mL residual measured from PEG tube. Pt states he is not experiencing abdominal pain or discomfort. Tube feeding started at 25 mL/hr.
--- NOTE | 2019-08-05 10:30 | NUR ---
DR VERDUGO IN TO SEE PT Provider at bedside 0945. Plan of care discussed. IV fluids will be discontinued when current bag is complete infusing. Discussed tube feeds. Discussed current rate and rhythm. EKG obtained. Plan to encourage BiPAP.
--- NOTE | 2019-08-05 12:35 | NUR ---
UPDATE 0 mL residual measured from PEG tube. Feeding remains at 25 mL/hr. Pt remains on BiPAP. Partial oral care perfomed; pt refused full oral care. Education provided. Pt continued to refuse oral care.
--- NOTE | 2019-08-05 18:06 | NUR ---
Provided prayer to Mr. Billings who was alone in room, awake, and pleasantly confused. Conversation was difficult due to bipap. He denied fears or concerns and was appreciative of prayer. I will remain available to pt and family.
--- NOTE | 2019-08-05 18:38 | NUR ---
SUMMARY Pt has been on BiPAP for majority of shift 13/04, FiO2 50%. Pt has had three short breaks from BiPAP for oral care. Pt wears 5 LPM NC with breaks; this is his home dose of oxygen. Pt has been bradycardic per monitor. Occasional P waves. Rhythm reviewed with Dr Johnson. Pt tolerated tube feeds well at rate of 25 mL/hr. Residuals measured less than 10 mL. Rate increased to 35 mL/hr. Pt voids into urinal. No BM this shift, therefore guiac has not been sent. Pt's spouse in to see pt for short period of time this afternoon. Will continue to closely monitor until care handoff and bedside report with oncoming RN.
--- NOTE | 2019-08-05 19:00 | NUR ---
ASSUMED CARE ASSUMED CARE OF PATIENT. AWAKE AND ALERT. COOPERATIVE WITH CARE, BUT IS FORGETFUL AT TIMES. ORIENTED TO SELF AND PLACE. FOLLOWS DIRECTIONS. SLOW VERBAL RESPONSE WITH OCCASIONALLY GARBLED SPEECH. GENERAL WEAKNESS NOTED. MONITOR SHOWS AFIB, RATE MID-40s TO 50s. BP STABLE. REMAINS ON BIPAP 18/8, BUR 14, FIO2 50%. RR 16. OCCASIONAL NON-PRODUCTIVE COUGH. PEG TUBE WITH JEVITY 1.5 AT 35CC/HR (GOAL RATE IS 60CC/HR). DENIES C/O PAIN OR DISCOMFORT. BED ALARM IS ON. SEE SHIFT ASSESSMENT FOR FULL ASSESSMENT.
[2019-08-06 03:28] LABS: BASOPHILS ABSOLUTE AUTO 0.01 K/mm3 (0.00-0.23); BASOPHILS PERCENT AUTO 0 % (0-2); EOSINOPHILS PERCENT AUTO 0 % (0-6); Hematocrit 27.5 % (37.0-53.0); Hemoglobin 7.9 g/dL (13.5-17.5); IMMATURE GRAN ABSOLUTE AUTO 0.17 K/mm3 (0.00-0.10); IMMATURE GRAN PERCENT AUTO 2 % (0-1); LYMPHOCYTES ABSOLUTE AUTO 0.36 K/mm3 (0.84-5.20); LYMPHOCYTES PERCENT AUTO 5 % (21-46); MONOCYTES ABSOLUTE AUTO 0.31 K/mm3 (0.16-1.47); MONOCYTES PERCENT AUTO 4 % (4-13); Mean Corpuscular HGB 32.6 pg (26.0-34.0); Mean Corpuscular HGB Conc 28.7 g/dL (31.5-36.5); Mean Corpuscular Volume 114 fL (80-100); Mean Platelet Volume 10.7 fL (9.1-12.4); NEUTROPHILS PERCENT AUTO 89 % (41-73); NRBC ABSOLUTE 0.02 K/mm3 (0.00-0.02); NRBC Auto 0.3 /100 WBC (0.0-0.2); Platelet Count 343 K/mm3 (150-400); RDW Coefficient Variation 16.4 % (11.7-14.2); RDW Standard Deviation 68.7 fL (35.1-46.3); Red Blood Cell Count 2.42 M/mm3 (4.30-5.90); White Blood Cell Count 7.75 K/mm3 (4.00-11.30)
[2019-08-06 03:41] LABS: Anion Gap 4 mmol/L (6-16); Blood Urea Nitrogen 47 mg/dL (8-24); Bun/Creatinine Ratio 56.4 (12.0-20.0); CO2, Blood 37 mmol/L (21-32); Calcium, Blood 8.8 mg/dL (8.5-10.1); Chloride, Blood 100 mmol/L (98-108); Creatinine, Blood 0.83 mg/dL (0.60-1.20); Glomerular Filtration Rate >60 (60-); Glucose, Blood 180 mg/dL (70-99); Potassium, Blood 4.2 mmol/L (3.5-5.5); Sodium, Blood 141 mmol/L (136-145)
[2019-08-06 03:45] LABS: Base Excess Venous 16.9 mmol/L; Bicarbonate Venous 38.6 mmol/L (24.0-30.0); PCO2 Venous 60.2 mmHg (38-42); PO2 Venous 42.1 mmHg (38-42); pH Blood Venous 7.44 (7.34-7.37)
--- NOTE | 2019-08-06 05:59 | NUR ---
SHIFT SUMMARY REMAINED ON BIPAP 13/04, BUR 14, FIO2 50-55% T/O NOC WITH SEVERAL SMALL 2-3 MINUTE BREAKS ON 5L NC FOR ORAL CARE. SATS DECREASE TO LOW 80s WHEN BIPAP OFF AND IT TAKES PT SEVERAL MINUTES TO RECOVER ONCE BIPAP IS BACK ON. CONTINUES WITH MILD CONFUSION AND FORGETFULLNESS. SLOW VERBAL RESPONSE AND GENERAL WEAKNESS CONTINUES. BED ALARM IS ON. DENIES C/O PAIN OR NAUSEA. PEG WITH JEVITY 1.5 AT 45CC/HR (GOAL RATE ID 60CC/HR). RESIDUALS 0-10CC. NO STOOL DURING SHIFT. VOIDS WITHOUT DIFFICULTY. COCCYX SLIGHTLY REDDENED AND ATTEMPTS MADE TO KEEP PT REPOSITIONED OFF OF BACKSIDE. NS TKO. MONITOR SHOWS UNDETERMINED RHYTHM (AFIB VS AV BLOCK), RATE 40-60s. EKG DONE THIS AM- SHOWS AFIB WITH SLOW VENTRICULAR RESPONSE. BP STABLE. AFEBRILE. RATE 40-50s. WILL REPORT TO DAY SHIFT RN WHEN AVAILABLE.
--- NOTE | 2019-08-06 06:46 | NUR ---
BRADYCARDIA/CALL TO MD MONITOR SHOWS CONTINUED HR MID-30s TO 40s. BP STABLE. PT IS SLEEPING. DR. VERDUGO NOTIFIED OF RHYTHM/RATE AND NEW ORDER RECEIVED FOR A CARDIOLOGY CONSULT.
--- NOTE | 2019-08-06 07:51 | NUR ---
DR. RICHARD HERE TO SEE PATIENT. REVIEWED EKG STRIPS. STATED THAT PATIENT GOING IN BETWEEN A COMPLETE HEART BLOCK AND A 1:2 AV BLOCK WITH PACS. STATED THAT PATIENT WILL NEED A PACEMAKER PLACED AND THEN A HEART CATH. CALLED TO COME IN SO DR. RICHARD CAN SPEAK WITH HER. STATED SHE WILL BE IN SHORTLY.
--- NOTE | 2019-08-06 08:00 | NUR ---
INITIAL ASSESSMENT PATIENT ALERT AND ORIENTED TO SELF, PLACE, FAMILY, FOLLOWING COMMANDS. PATIENT DOES NOT KNOW DATE/ TIME, OR WHY HE IS IN HOSPITAL. RN RECEIVED REPORT THAT PATIENT IS FORGETFUL. PATIENT IS FLAT, ANXIOUS AND IRRITABLE THIS AM. BIPAP MASK ASSUMES TO BE ANNOYING PATIENT. PATIENT WEAK AND DECONDITIONED. PATIENT USES WHEELCHAIR AND WALKER AT HOME. PATIENT AFEBRILE. PATIENT DENIES PAIN OR DISCOMFORT THIS AM. PATIENT SATTING 90% AND GREATER ON BIPAP SETTINGS OF 18/8, RATE OF 14, 55% FIO2. PATIENT HAS OCCASIONAL, NONPRODUCTIVE COUGH. LUNGS SOUNDS CLEAR THROUGHOUT, AT THIS TIME. DR. RICHARD HERE TO SEE PATIENT THIS AM. STATES PATIENT IS SWITCHING BETWEEN SECONDARY TYPE 2 HB AND THIRD DEGREE HB WITH PACS. PLAN IS TO HAVE PACEMAKER INSERTED TODAY. HR 40S TO 60S. BP STABLE. RADIAL PULSES 2+ IN STRENGTH. PULSES 1+ IN BLES. PATIENT STRICT NPO. PATIENT HAS PEG TUBE IN PLACE. TF PLACED ON STANDBY FOR IMPENDING PACEMAKER INSERTION. RESIDUAL OF ZERO. DATE OF LAST BM UNKNOWN. PATIENT USES URINAL WITH ASSISTANCE; VOIDING LIGHT YELLOW COLORED URINE. SKIN IS DRY, FRAGILE AND SCALING. COCCYX REDDENED. PEG TUBE INSERTION SITE REDDENED. DR. VERDUGO INFORMED. SITE CLEANSED WITH STERILE WATER AND FENESTRATED GAUZE APPLIED. L HIP REDDENED. NS TKO. BED LOW, CALL LIGHT IN REACH. WILL CONTINUE TO MONITOR PATIENT FREQUENTLY THROUGHOUT SHIFT.
--- NOTE | 2019-08-06 10:00 | NUR ---
DR. VERDUGO IN TO SEE PATIENT. INFORMED THAT PEG TUBE SITE IS REDDENED AND SLIGHTLY INFLAMED APPEARING. INFORMED THAT SITE CLEANED WITH STERILE WATER AND FENESTRATED GAUZE PLACED. ASSESSED SITE. NO ORDERS RECEIVED AT THIS TIME.
--- NOTE | 2019-08-06 12:00 | NUR ---
PATIENT RESTING QUIETLY IN BED WITH FAMILY AT BEDSIDE. PATIENT HAS NO COMPLAINTS OF PAIN. HR 40S TO 50S. BP STABLE. PATIENT REMAINS IN SAME RHYTHM. PATIENT SATTING 90% AND GREATER ON 10 L HUMIDIFIED HF NC. PATIENT IN MUCH BETTER SPIRITS THAN THIS AM. PATIENT PLAYFUL AND JOKING. NO OTHER ACUTE CHANGES TO NOTE ON AT THIS TIME. WILL CONTINUE TO MONITOR.
--- NOTE | 2019-08-06 15:05 | NUR ---
SUPER[employer]OR [employer] RECEIVABLE CALLED AND SAID THAT PACEMAKER PLACEMENT WILL BE POSTPONED UNTIL 0900 IN THE MORNING THEY HAVE EXPERIENCED DIFFICULTIES WITH THE CASE THEY HAVE BEEN WORKING ON. TF RESUMED AT 45 MLS/ HOUR WITH 250 ML WATER FLUSH Q4H. TF TO BE PLACED ON HOLD AT 0000.
--- NOTE | 2019-08-06 15:57 | NUR ---
PATIENT RESTING QUIETLY IN BED. AFEBRILE. VITAL SIGNS STABLE. PATIENT SATTING 90% AND GREATER ON BIPAP 18/8, 55% FIO2. JEVITY 1.5 RESTARTED AT 45 MLS/ HOUR WITH 250 MLS H20 OF WATER Q4H. TF TO BE PLACED ON HOLD AT 0000 FOR PACEMAKER PLACEMENT AT 0900 IN THE MORNING. WENT HOME AFTER PACEMAKER PROCEDURE PUT ON HOLD. PATIENT TRIED TO CRAWL OUT OF BED. PATIENT ASKED WHERE HE WAS TRYING TO GO AND PATIENT STATED "I DON'T KNOW". PATIENT REORIENTED THAT HE WILL BE STAYING THE NIGHT IN THIS ROOM AND BED TONIGHT AND WILL BE HAVING THE PACEMAKER PLACED TOMORROW AT 0900. NO OTHER ACUTE CHANGES TO NOTE ON AT THIS TIME. BED ALARM ON. WILL CONTINUE TO MONITOR.
--- NOTE | 2019-08-06 18:58 | NUR ---
SHIFT SUMMARY PATIENT REMAINED MOSTLY ORIENTED THIS SHIFT AFTER FULLY WAKING UP. PATIENT IRRITATED AND ANXIOUS THIS AM. PATIENT JOKING AND PLAYFUL DURING MIDDAY AND PATIENT IS NOW BACK TO IRRITATED AND ANXIOUS. PATIENT NOW TRYING TO CRAWL OUT OF BED AND PULLING AT LINES AND CORDS. PATIENT REMAINS WEAK AND DECONDITIONED. PATIENT IS UNABLE TO REPOSITION HIMSELF AT ALL. PATIENT HAD NO COMPLAINTS OF PAIN THIS SHIFT. PATIENT HAS REMAINED AFEBRILE. PATIENT HAS REMAINED SATTING WELL ON BIPAP 08/03 AT 55% FIO2. PATIENT IS MORE ANXIOUS WITH BIPAP MASK ON. PATIENT TOLERATING BREAKS WELL ON 6 TO 10 L HUMIDIFIED HF NC. PATIENT HAS REMAINED IN 3RD DEGREE TO SECOND DEGREE TYPE 2 HB WITH PACS THIS SHIFT. HR 40S TO 60S. BP REMAINED STABLE. PATIENT SCHEDULED FOR PACEMAKER PLACEMENT AT 0900 IN AM. TF INFUSING AT 45 MLS/ HOUR WITH 250 ML H20 Q4H. TF TO BE PLACED ON SB AT 0000. PATIENT HAD GOOD URINARY OUTPUT. PATIENT HAD NO BM THIS SHIFT. NO CHANGE TO SKIN. PATIENT REPOSITIONED THROUGHOUT SHIFT. MEPILEX APPLIED TO REDDENED COCCYX. NS TKO. PATIENT HAS BEEN RECEIVING SCHEDULED ANTIBIOTICS. IN ROOM MOST OF DAY. PATIENT HAS NO COMPLAINTS AT THIS TIME. BED LOW, CALL LIGHT IN REACH. REPORT WILL BE GIVEN TO ONCOMING SENIOR TAX ANALYST NURSE SHORTLY.
--- NOTE | 2019-08-06 19:30 | NUR ---
[place] of Care: Patient alert, oriented to self, but confused to time, date, place. Easily re-oriented, but forgetful. Calm and cooperative with satff. Occasionally uses call light for assistance, but will attempt to get out of bed with out assistance. Bed-alarm in place. On BiPAP 12/8/55%, O2-94-98%, denies dyspnea/SOB. Tolerating breaks from BiPAP with 6L/ high-flow NC. BP stable, HR shows what appears to be 3rd degree AV block with occasional junctional and PVC's, rate- 50's-70's. Peripheral IV to lt forearm patent and intact. Peripheral IV to rt forearm removed, not patent upon assessment. Voiding using urinal in bed. Call light in reach. Will continue to monitor for pain, comfort, safety.
[2019-08-07 03:55] LABS: Hematocrit 26.9 % (37.0-53.0); Hemoglobin 7.7 g/dL (13.5-17.5); Mean Corpuscular HGB Conc 28.6 g/dL (31.5-36.5); Mean Corpuscular Volume 116 fL (80-100); Mean Platelet Volume 10.7 fL (9.1-12.4); NRBC ABSOLUTE 0.03 K/mm3 (0.00-0.02); NRBC Auto 0.4 /100 WBC (0.0-0.2); Platelet Count 337 K/mm3 (150-400); RDW Coefficient Variation 16.5 % (11.7-14.2); RDW Standard Deviation 69.6 fL (35.1-46.3); Red Blood Cell Count 2.33 M/mm3 (4.30-5.90); White Blood Cell Count 7.16 K/mm3 (4.00-11.30)
[2019-08-07 04:11] LABS: Anion Gap 1 mmol/L (6-16); Blood Urea Nitrogen 42 mg/dL (8-24); Bun/Creatinine Ratio 51.2 (12.0-20.0); CO2, Blood 40 mmol/L (21-32); Calcium, Blood 8.8 mg/dL (8.5-10.1); Chloride, Blood 103 mmol/L (98-108); Creatinine, Blood 0.82 mg/dL (0.60-1.20); Glomerular Filtration Rate >60 (60-); Glucose, Blood 149 mg/dL (70-99); Potassium, Blood 4.2 mmol/L (3.5-5.5); Sodium, Blood 144 mmol/L (136-145)
[2019-08-07 05:24] LABS: BAND PERCENT MAN 12 % (0-8); BASOPHILS PERCENT MAN 0 % (0-2); EOSINOPHILS PERCENT MAN 0 % (0-6); LYMPHOCYTES ABSOLUTE MAN 0.28 K/mm3 (0.84-5.20); LYMPHOCYTES PERCENT MAN 4 % (21-46); METAMYELOCYTE ABSOLUTE MAN 0.07 K/mm3 (0.00-0.00); METAMYELOCYTE PERCENT MAN 1 % (0-0); MONOCYTES ABSOLUTE MAN 0.21 K/mm3 (0.16-1.47); MONOCYTES PERCENT MAN 3 % (4-13); MYELOCYTE ABSOLUTE MAN 0.07 K/mm3 (0.00-0.00); MYELOCYTE PERCENT MAN 1 % (0-0); NEUTROPHILS ABSOLUTE MAN 6.51 K/mm3 (1.96-9.15); SEG NEUTROPHILS PERCENT MAN 79 % (41-73); TOTAL CELLS COUNTED 100
--- NOTE | 2019-08-07 06:07 | NUR ---
Shift Summary: Patient slept on/off throughout shift. Remained on BiPAP mask throughout most of shift, but continues to tolerate breaks without difficulty. BiPAP /, now 45% FiO2, 6L/high-flow NC when off mask. VSS, O2-90-98%. No changes in heart rhythm throughout shift, appears to be complete heart block, rate- 40's-70's. Continues to deny pain, discomfort, SOB, or dyspnea. Voiding using urinal in bed without difficulty. Peripheral IV x1 to lt forearm patent and intact. Better use of call light for assistance throughout shift. Sleeping at this time. Will continue to monitor until report to day shift RN.
--- NOTE | 2019-08-07 08:00 | NUR ---
INITIAL ASSESSMENT pT ALERT AND ORIENT TIMES TOWN AND PLEASENT. EASY AND RECEPTIVE TO REDIRECTION BUT INSISTING ON WATER. ADVISED OF NPO STATUS AND WILL CONT TO SUPPORT. FIRST/SECOND/THIRD DEGREE HB WITH SBP STABLE AND MD AWARE. TO TAKE FOR PACEMAKER INSERTION THIS AM. PALP PULSES AFEBRILE AND NO EDEMA. BIPAP CURRENTLY BUT WILL REMOV AND PLACE ON HIGH FLOW NC. SATS WNL, COURSE AND DIM BILAT. NPO SINCE MN. ABD SOFT ROUND AND NON TENDER WITH BOWEL TONES. NO BM. VOIDING VIA URINAL CLEAR AND YELLOW AND ADEQUATE. Q 2HR TURNS. WILL CONT TO MONITOR
[2019-08-07 09:00] LABS: Vancomycin, Trough 20.7 ug/mL (5.0-10.0)
--- NOTE | 2019-08-07 09:00 | NUR ---
CASE BRIEFER PT TAKEN TO CASE BRIEFER VIA HOSPITAL BED WITH 2 CASE BRIEFER RNS AND ANESTHESIA AT BEDSIDE WITH HIFLOW NC AT 6L
--- NOTE | 2019-08-07 22:47 | NUR ---
ASSUMED PT CARE FROM MARY CASTRO AT 1915 PT SITTING UP IN BED WITH HIFLOW NC IN AT 5L WITH BIOX >91%. PT ALERT AND ORIENTED AND ABLE TO MAKE HIS BASIC NEEDS KNOWN. HX OF DEMENTIA; THEREFORE, VERY CONFUSED AND FORGETFUL AND NEEDS REDIRECTION FREQUENTLY. LUNG SOUNDS NOTED TO HAVE EXPIRATORY WHEEZING AND COARSE RHONCHI T/O ALL LOBES. PT STATED HE WAS VERY SOB AND COULDN'T BREATHE; PLACED ON BIPAP 12/8 WITH FIO2 45%. BIOX >95%. VSS. PT STILL C/O SOB ON BIPAP. SPOKE WITH PAM CHANCE WHO ORDERED ONE TIME DOSE OF 20MG LASIX IV AND ONE TIME DOSE OF MORPHINE 2MG IV FOR AIR HUNGER; WHICH APPEARED EFFECTIVE. PT IS NOTED TO BE 100% VENTRICULAR PACED WITH OCCASIONAL ATRIAL PACING. RHYTHM IS NOTED TO BE IRREGULAR WITH RATE 60-100'S DEPENDING ON IF PT IS CALM OR ANXIOUS. PEG TUBE HAS POSITIVE TONES WHEN CHECKED FOR PLACEMENT; HOWEVER, TUBE FEEDING AND WATER NOTED TO BE DRAINING AROUND TUBE. CHECKED RESIDUAL WITH 10CC NOTED. HOWEVER, ONLY ADMINISTERED 250CC OF WATER BOLUS AND ONE CAN OF TUBE FEEDING. ABDOMEN FEELS FIRM UPON PALPATION AND MILDLY DISTENDED. PT DENIES ANY "FULL" FEELING OR DISCOMFORT. WILL CONTINUE TO MONITOR FLUID STATUS. CALL LIGHT WITHIN REACH AND PT IS ABLE TO DEMONSTRATE HOW TO USE IN ORDER TO MAKE NEEDS KNOWN.
[2019-08-08 03:39] LABS: Hematocrit 32.3 % (37.0-53.0); Hemoglobin 9.6 g/dL (13.5-17.5); Mean Corpuscular HGB 33.3 pg (26.0-34.0); Mean Corpuscular HGB Conc 29.7 g/dL (31.5-36.5); Mean Platelet Volume 10.9 fL (9.1-12.4); NRBC ABSOLUTE 0.04 K/mm3 (0.00-0.02); NRBC Auto 0.5 /100 WBC (0.0-0.2); Platelet Count 302 K/mm3 (150-400); RDW Coefficient Variation 18.2 % (11.7-14.2); RDW Standard Deviation 75.5 fL (35.1-46.3); Red Blood Cell Count 2.88 M/mm3 (4.30-5.90); White Blood Cell Count 8.19 K/mm3 (4.00-11.30)
[2019-08-08 03:44] LABS: Mean Corpuscular Volume 112 fL (80-100)
[2019-08-08 03:49] LABS: Anion Gap 1 mmol/L (6-16); Blood Urea Nitrogen 37 mg/dL (8-24); Bun/Creatinine Ratio 53.4 (12.0-20.0); CO2, Blood 41 mmol/L (21-32); Calcium, Blood 8.8 mg/dL (8.5-10.1); Chloride, Blood 101 mmol/L (98-108); Creatinine, Blood 0.69 mg/dL (0.60-1.20); Glomerular Filtration Rate >60 (60-); Glucose, Blood 218 mg/dL (70-99); Potassium, Blood 3.7 mmol/L (3.5-5.5); Sodium, Blood 143 mmol/L (136-145)
[2019-08-08 04:21] LABS: BAND PERCENT MAN 3 % (0-8); BASOPHILS PERCENT MAN 0 % (0-2); EOSINOPHILS PERCENT MAN 0 % (0-6); LYMPHOCYTES PERCENT MAN 5 % (21-46); METAMYELOCYTE ABSOLUTE MAN 0.08 K/mm3 (0.00-0.00); METAMYELOCYTE PERCENT MAN 1 % (0-0); MONOCYTES ABSOLUTE MAN 0.73 K/mm3 (0.16-1.47); MONOCYTES PERCENT MAN 9 % (4-13); MYELOCYTE ABSOLUTE MAN 0.16 K/mm3 (0.00-0.00); MYELOCYTE PERCENT MAN 2 % (0-0); NEUTROPHILS ABSOLUTE MAN 6.79 K/mm3 (1.96-9.15); SEG NEUTROPHILS PERCENT MAN 80 % (41-73); TOTAL CELLS COUNTED 100
--- NOTE | 2019-08-08 05:25 | NUR ---
END OF SHIFT SUMMARY NO SIGNIFICANT CHANGES SINCE LAST ENTRY. LASIX AND MORPHINE APPEARED EFFECTIVE FOR PT'S SOB. LUNG SOUNDS ARE MORE CLEAR, BUT DIMINISHED. URINARY OUTPUT HAS BEEN ADEQUATE. PT HAS TOLERATED BIPAP WELL WITH SETTINGS: 12/8; FIO2 45%. PT HAS RESTED WELL T/O NIGHT. VSS. PT NOTED TO BE 100% VENTRICULAR PACED WITH OCCASIONAL ATRIAL PACING. UNDERLYING IRREGULAR RHYTHM WITH OCCASIONAL PVC'S. TUBE FEEDING CONTINUOUS TO OOZE AROUND PEG TUBE; DRESSING CHANGED THREE TIMES THIS SHIFT. RESIDUAL AT BEGINNING OF SHIFT WAS 0, BUT SITE WAS OOZING MODERATE AMOUNTS; THEREFORE, ONLY ADMINISTERED HALF TUBE FEEDING BOLUS. AT 0000 RESIDUAL WAS 325CC; THEREFORE, WATER BOLUS HELD AT THAT TIME. AND AT 0400 RESIDUAL WAS 0; THEREFORE, LAST 250CC WATER BOLUS GIVEN. PT TOLERATED WELL. PT REMAINS CONFUSED AND FORGETFUL, BUT ABLE TO REDIRECT APPROPRIATELY. CALL LIGHT WITHIN REACH. WILL CONTINUE TO MONITOR UNTIL REPORT IS HANDED OFF TO ONCOMING RN.
--- NOTE | 2019-08-08 08:00 | NUR ---
INITIAL ASSESSMENT PT ALERT AND ORIENT TIMES TOWN AND PLEASENT. EASY AND RECEPTIVE TO REDIRECTION ADVISED OF NPO STATUS AND TOLERATING TF BOLUS WITH WATER FLUSHES. PACED WITH STABLE RYHTEM AND SBP STABLE AND MD AWARE PALP PULSES AFEBRILE AND NO EDEMA. BIPAP CURRENTLY ON HIGH FLOW NC AND SATS WNL, COURSE AND DIM BILAT. ABD SOFT ROUND AND NON TENDER WITH BOWEL TONES. NO BM. VOIDING VIA URINAL CLEAR AND YELLOW AND ADEQUATE. Q2HR TURNS. WILL CONT TO MONITOR
--- NOTE | 2019-08-08 13:59 | NUR ---
PT C/O SOB, SPO2 93% 7L HIGH FLOW NC, LS COARSE T/O. BIPAP RESUMD AT 12/8, 45% FIO2. SPO2 94%, WILL CONTINUE TO MONITOR.
--- NOTE | 2019-08-08 15:47 | NUR ---
pt arrived to pcu from icu, via bed, he is awake, a/ox2, painful to move, moans a lot, lungs are course, he is on 6 liters high flow cannula, has a very harsh nonproductive cough, hrr, 100% paced, general edema, iv x2, s.l. sites are clear and patent, btx4, abd flat soft nontender, was incont of liquid brown stool, he was cleaned and placed on a disposible chux, voids small amounts at a time via urinal, skin frail, heels are red, they are floated on pillows, mepilex noted to coccyx, general weakness, stiff ext. siabel, call light in reach.
--- NOTE | 2019-08-08 18:12 | NUR ---
pt doing ok, had a break from his bipap with some oral care, asks for water but is ok with swabs. in room. call light in reach.
--- NOTE | 2019-08-08 21:05 | NUR ---
ASSUMED CARE APPROXIMATELY 1900; PT ALERT, ORIENTED TO SELF; 5L HIGH FLOW NC; O2 SATS >90; LUNG SOUNDS COURSE T/O; RT AT BEDSIDE; PT USES URINAL IN BED; FREQUENTLY W/ LOW OUTPUT APPROXIMATELY 100ML; PEG TUBE FLUSHES APPROPRIATELY; CALL LIGHT IN REACH; BED IN LOWEST POSITION; WILL CONTINUE TO MONITOR CLOSELY
--- NOTE | 2019-08-09 05:47 | NUR ---
SHIFT SUMMARY PT USED BIPAP ON AND OFF FOR A FEW HOURS; RT TITRATED 02 NC TO 2L AND BIPAP TO 35%; O2 SATS >90; PT DESATS WHEN SLEEPING W/NC; PT URINATES SMALL AMOUNTS FREQUENTLY; PT FORGETFUL; AT TIMES FORGETS WHAT HE WANTED TO SAY; EDUCATED PT ON USING CALL LIGHT HE CALLS OUT AND HITS CALL LIGHT ON THE SIDE OF THE BED; PILLOWS PLACED UNDER HIPS TO RELIEVE PRESSURE; CALL LIGHT IN REACH; BED IN LOWEST POSITION; WILL CONTINUE TO MONITOR UNTIL HAND OFF TO DAY SHIFT RN
[2019-08-09 07:22] LABS: Vancomycin, Trough 19.4 ug/mL (5.0-10.0)
[2019-08-09 09:05] LABS: Anion Gap 7 mmol/L (6-16); Blood Urea Nitrogen 30 mg/dL (8-24); Bun/Creatinine Ratio 47.6 (12.0-20.0); CO2, Blood 32 mmol/L (21-32); Calcium, Blood 9.1 mg/dL (8.5-10.1); Chloride, Blood 101 mmol/L (98-108); Creatinine, Blood 0.63 mg/dL (0.60-1.20); Glomerular Filtration Rate >60 (60-); Glucose, Blood 156 mg/dL (70-99); Potassium, Blood 4.2 mmol/L (3.5-5.5); Sodium, Blood 140 mmol/L (136-145)
--- NOTE | 2019-08-09 09:08 | NUR ---
AM NOTE. ASSUMED CARE OF PT APROX 070. PT IS A&Ox3 AND IS FORGETFUL AT TIMES. PT WAS ADMITTED FOR ASPIRATION PNA/HEART BLOCK. PT HAS PEG TUBE. PT IS S/P PACEMAKER PLACEMENT. PT IS 100% PACED IN THE 60'S. NO EDEMA IS PRESENT ON ASSESSMENT. L/S COARSE RALES T/O PT IS ON 4L NC WITH O2 SATS AT 94%. PEG TUBE IS PATENT AND INTACT, DRESSING HAS MCMANUS DISCHARGE NOTED. DRESSING CHANGE DONE. WILL CONTINUE TO MONITOR.
[2019-08-09 12:19] LABS: Stool Occult Bld Immuno 1 Negative (NEGATIVE)
--- NOTE | 2019-08-09 14:29 | NUR ---
PT UPDATE... BEDBATH WAS DONE ON PT, PT'S PEG TUBE DRESSING WAS SATURATED WITH MCMANUS/MILKY FLUID, DRESSING WAS CHANGED AND AREA WAS CLEANED/ASSESSED, THE AREA AROUND THE PEG TUBE WAS RED. FLANGE WAS TIGHTENED FROM 6 TO 2. THIS APPEARED TO IMPROVE THE LEAKING AROUND THE TUBE. WILL CONTINUE TO MONITOR.
--- NOTE | 2019-08-09 15:16 | NUR ---
PT UPDATE... AFTERNOON TUBE FEED WAS HELD T/O 400ML RESIDUAL FROM AM TUBE FEED. PT DENIES HUNGER AT THIS TIME.
--- NOTE | 2019-08-09 17:35 | NUR ---
SHIFT SUMMARY. NO ACUTE NEGATIVE CHANGES NOTED THIS SHIFT. PT'S VS HAVE BEEN STABLE. PT HAS BEEN ON NC BETWEEN 3-5 L WITH O2 SATS 91-94%. PT'S MID DAY TUBE FEED WAS HELD DUE TO >400MLS OF RESIDUAL. PT'S COCCYX HAD MEPILEX THAT WAS CHANGED DURING HIS BEDBATH, PT'S COCCYX IS RED AND BLANCHABLE IN SOME AREAS. MEPLIX WAS REPLACED AND PT CONTINUES WITH THE Q2 HR TURNS. PT'S WAS AT THE BEDSIDE MOST OF THE MORNING THIS AM. PT/OT IS ORDERED TO WORK WITH THE PT TOMORROW. CALL LIGHT IN REACH, BED IS LOCKED AND LOW WILL CONTINUE TO MONITOR UNTIL REPORT IS GIVEN TO ONCOMING RN.
--- NOTE | 2019-08-09 21:04 | NUR ---
PT CHECKED FOR PEG TUBE RESIDUAL PRIOR TO PM MEDS AND FEEDING. GREATER THAN 300 ML RESIDUAL FOUND. PER DAY SHIFT RN, 1300 FEEDING WAS ALSO HELD DUE TO HIGH RESIDUAL. HOSPITALIST DR. HERNANDEZ WAS NOTIFIED OF THIS. PER DR. HERNANDEZ. HOLD FEEDINGS AND MEDS TONIGHT.
[2019-08-10 05:03] LABS: Hematocrit 35.2 % (37.0-53.0); Hemoglobin 10.8 g/dL (13.5-17.5); Mean Corpuscular HGB 33.4 pg (26.0-34.0); Mean Corpuscular HGB Conc 30.7 g/dL (31.5-36.5); Mean Platelet Volume 10.7 fL (9.1-12.4); NRBC ABSOLUTE 0.02 K/mm3 (0.00-0.02); NRBC Auto 0.2 /100 WBC (0.0-0.2); Platelet Count 333 K/mm3 (150-400); RDW Coefficient Variation 17.4 % (11.7-14.2); RDW Standard Deviation 66.9 fL (35.1-46.3); Red Blood Cell Count 3.23 M/mm3 (4.30-5.90); White Blood Cell Count 10.73 K/mm3 (4.00-11.30)
[2019-08-10 05:04] LABS: Mean Corpuscular Volume 109 fL (80-100)
[2019-08-10 05:26] LABS: BAND PERCENT MAN 8 % (0-8); BASOPHILS PERCENT MAN 0 % (0-2); EOSINOPHILS PERCENT MAN 0 % (0-6); LYMPHOCYTES ABSOLUTE MAN 0.85 K/mm3 (0.84-5.20); LYMPHOCYTES PERCENT MAN 8 % (21-46); METAMYELOCYTE ABSOLUTE MAN 0.32 K/mm3 (0.00-0.00); METAMYELOCYTE PERCENT MAN 3 % (0-0); MONOCYTES ABSOLUTE MAN 0.64 K/mm3 (0.16-1.47); MONOCYTES PERCENT MAN 6 % (4-13); MYELOCYTE ABSOLUTE MAN 0.32 K/mm3 (0.00-0.00); MYELOCYTE PERCENT MAN 3 % (0-0); NEUTROPHILS ABSOLUTE MAN 8.58 K/mm3 (1.96-9.15); SEG NEUTROPHILS PERCENT MAN 72 % (41-73); TOTAL CELLS COUNTED 100
[2019-08-10 05:38] LABS: Anion Gap 3 mmol/L (6-16); Blood Urea Nitrogen 26 mg/dL (8-24); Bun/Creatinine Ratio 48.1 (12.0-20.0); CO2, Blood 35 mmol/L (21-32); Calcium, Blood 8.7 mg/dL (8.5-10.1); Chloride, Blood 99 mmol/L (98-108); Creatinine, Blood 0.54 mg/dL (0.60-1.20); Glomerular Filtration Rate >60 (60-); Glucose, Blood 145 mg/dL (70-99); Potassium, Blood 4.4 mmol/L (3.5-5.5); Sodium, Blood 137 mmol/L (136-145)
--- NOTE | 2019-08-10 06:34 | NUR ---
ORTHOPEDIC RADIOLOGIC TECHNOLOGIST SUMMARY PT WAS ABLE TO STATE HIS NAME, , WHERE HE WAS, WHY HE WAS IN THE HOSPITAL AND THE MONTH CORRECTLY. HOWEVER, PT IS CONFUSED AT TIMES. PT HAS PULLED OFF HIS CPAP CONSTANTLY DURING THE NIGHT AND SAT WOULD COME DOWN TO THE 70S. NURSE WOULD CPAP BACK ON WITH SAT RECOVERING SLOWLY TO THE HIGHER 80S. PT ALSO TRIED TO GET OUT OF BED A FEW TIMES DURING THE NIGHT NEEDING TO VOID. PT HAS VOIDED CLEAR YELLOW URINE EVERY 1-2 HOURS WITH 90-100 ML EACH VOID. PT WAS INTRUCTED TO USE CALL [id number] BUT WOULD FORGET AND TRY TO GET OUT OF BED. PT HAS USED CALL BELLS A COUPLE OF TIMES TONIGHT. OTHERWISE, PT DENIES PAIN, AND NAUSEA. WILL CONTINUE TO MONITOR.
--- NOTE | 2019-08-10 09:27 | NUR ---
patient is currently refusing his morning tube feeding. yesterday and overnight he had high residuals. he says that he feels full, stomach is mildly distended but his residual is 0 this am. will try again in an hour. patient agreed to take his medications.
--- NOTE | 2019-08-10 18:27 | NUR ---
SHIFT SUMMARY PATIENT IS PLEASANT, NO ACUTE CONCERNS AT THIS TIME. HE HAS TOLERATED 2 TUBE FEEDINGS TODAY, AT THE LOWER RATE. HE IS COUGHING UP A LOT AND HAS TENDERNESS TO PALPATION.
--- NOTE | 2019-08-10 21:39 | NUR ---
RESTING ON 5 L O2 NC. RT IN FOR BREATHING TX. TUBE FEEDING OF JEVITY COMPLETE. STATING 96% HR= 76. WILL CONTINUE TO MONITOR.
--- NOTE | 2019-08-10 23:29 | NUR ---
RT PUT PATIENT ON CPAP WITH 6L BLEED IN. STATING 96% WITH HR= 76. RT REPORTS PATIENT NOT ALWAYS IN COMPLIANCE OF WEARING. RT WILL RECHECK PATIENT TO SEE HOW HE IS TOLERATING IT.
--- NOTE | 2019-08-11 00:19 | NUR ---
PATIENT NOT TOLERATING CPAP. STATING 96% WITH IT ON AND REPORTS HE CANNOT BREATH. BACK ON 5L O2 NC STATING 95%.
[2019-08-11 05:01] LABS: BASOPHILS ABSOLUTE AUTO 0.07 K/mm3 (0.00-0.23); BASOPHILS PERCENT AUTO 1 % (0-2); EOSINOPHILS ABSOLUTE AUTO 0.01 K/mm3 (0.00-0.68); EOSINOPHILS PERCENT AUTO 0 % (0-6); Hematocrit 37.9 % (37.0-53.0); Hemoglobin 11.6 g/dL (13.5-17.5); IMMATURE GRAN ABSOLUTE AUTO 1.19 K/mm3 (0.00-0.10); IMMATURE GRAN PERCENT AUTO 13 % (0-1); LYMPHOCYTES ABSOLUTE AUTO 0.62 K/mm3 (0.84-5.20); LYMPHOCYTES PERCENT AUTO 7 % (21-46); MONOCYTES ABSOLUTE AUTO 0.45 K/mm3 (0.16-1.47); MONOCYTES PERCENT AUTO 5 % (4-13); Mean Corpuscular HGB 33.3 pg (26.0-34.0); Mean Corpuscular HGB Conc 30.6 g/dL (31.5-36.5); Mean Corpuscular Volume 109 fL (80-100); Mean Platelet Volume 10.8 fL (9.1-12.4); NEUTROPHILS ABSOLUTE AUTO 6.73 K/mm3 (1.96-9.15); NEUTROPHILS PERCENT AUTO 74 % (41-73); Platelet Count 355 K/mm3 (150-400); RDW Coefficient Variation 17.7 % (11.7-14.2); RDW Standard Deviation 66.4 fL (35.1-46.3); Red Blood Cell Count 3.48 M/mm3 (4.30-5.90); White Blood Cell Count 9.07 K/mm3 (4.00-11.30)
[2019-08-11 05:17] LABS: Anion Gap 3 mmol/L (6-16); Blood Urea Nitrogen 28 mg/dL (8-24); Bun/Creatinine Ratio 47.7 (12.0-20.0); CO2, Blood 36 mmol/L (21-32); Calcium, Blood 8.9 mg/dL (8.5-10.1); Chloride, Blood 99 mmol/L (98-108); Creatinine, Blood 0.59 mg/dL (0.60-1.20); Glomerular Filtration Rate >60 (60-); Glucose, Blood 181 mg/dL (70-99); Potassium, Blood 4.5 mmol/L (3.5-5.5); Sodium, Blood 138 mmol/L (136-145)
[2019-08-11 05:20] LABS: BAND PERCENT MAN 5 % (0-8); BASOPHILS PERCENT MAN 0 % (0-2); EOSINOPHILS PERCENT MAN 0 % (0-6); LYMPHOCYTES ABSOLUTE MAN 0.99 K/mm3 (0.84-5.20); LYMPHOCYTES PERCENT MAN 11 % (21-46); METAMYELOCYTE ABSOLUTE MAN 0.45 K/mm3 (0.00-0.00); METAMYELOCYTE PERCENT MAN 5 % (0-0); MONOCYTES ABSOLUTE MAN 0.45 K/mm3 (0.16-1.47); MONOCYTES PERCENT MAN 5 % (4-13); MYELOCYTE ABSOLUTE MAN 0.18 K/mm3 (0.00-0.00); MYELOCYTE PERCENT MAN 2 % (0-0); NEUTROPHILS ABSOLUTE MAN 6.98 K/mm3 (1.96-9.15); SEG NEUTROPHILS PERCENT MAN 72 % (41-73); TOTAL CELLS COUNTED 100
--- NOTE | 2019-08-11 08:54 | NUR ---
PATIENT DID NOT EAT BREAKFAST THIS SHIFT DUE TO BEING NPO AT THIS TIME.
--- NOTE | 2019-08-11 13:23 | NUR ---
PATIENT DID NOT EAT LUNCH THIS SHIFT DUE TO BEING NPO AT THIS TIME.
--- NOTE | 2019-08-11 16:10 | NUR ---
Initial spiritual care note: Mr. Billings was alone in room. He is very pleasant and tells me he feels "hopeful for full recovery." He credits his hetal and the love of his family for his endurance/strength. He says he feels better. We prayed together for continued healing at his request. I will remain available.
--- NOTE | 2019-08-11 18:19 | NUR ---
PATIENT DID NOT EAT DINNER THIS SHIFT DUE TO BEING NPO AT THIS TIME.
--- NOTE | 2019-08-11 18:34 | NUR ---
SHIFT SUMMARY SHANKAR RECEIVED 2 360ML BOLUS THIS SHIFT AND TOLERATED WELL WITH FEW RESIDUALS. (AND GOT 250ML WATER WITH THESE) HIS THIRD BOLUS AT 1630 WAS HELD DUE TO RESIDUALS AROUND 300CC. PT COMPLAINED OF COCCYX PAIN AND HEEL PAIN. ELEVATED RED HEELS AND INITIATED Q2 TURNS FOR A VERY RED BOTTOM. MEPILEX IN PLACE. AT REST IN BED, HAS 3-4L OXYGEN (5L AT BASELINE). WHEN TRANSFERRING FROM BED/CHAIR OR CHAIR/BSC, HE DESATS VERY SIGNIFICANTLY DOWN TO 60 AND EXTREMITIES GET VERY DUSKY AND DARK AND PT GETS VERY WEAK AND SOB. AFTER GETTING UP WITH OT, DECLINED TO GET OOB FURTHER. PT TO RETRY TOMORROW. PALLIATIVE REFERRAL PUT IN. L ARM IN SLING WHEN UP OOB. HAD BM TODAY. NEEDS ASSISTANCE WITH URINAL. TELE SHOWS PACED. CBGS DONE. DRESSING ON L UPPER CHEST FROM PACER PLACEMENT INTACT, SOME DRAINAGE. PILLS CRUSHED AND PUT IN PEG. PEG SHOWED NO LEAKING THIS SHIFT. CALL LIGHT IN REACH, AT , [facility]
[2019-08-12 05:37] LABS: Anion Gap 4 mmol/L (6-16); Blood Urea Nitrogen 27 mg/dL (8-24); Bun/Creatinine Ratio 40.6 (12.0-20.0); CO2, Blood 34 mmol/L (21-32); Calcium, Blood 8.7 mg/dL (8.5-10.1); Chloride, Blood 100 mmol/L (98-108); Creatinine, Blood 0.67 mg/dL (0.60-1.20); Glomerular Filtration Rate >60 (60-); Glucose, Blood 241 mg/dL (70-99); Potassium, Blood 4.6 mmol/L (3.5-5.5); Sodium, Blood 138 mmol/L (136-145)
--- NOTE | 2019-08-12 07:40 | NUR ---
78 year old MAle continues NPO for aspiration pneumonia. On IV antibiotics to treat. Tolerated tube feed bolus and 250 ml free water flush Q 4 hours. [employer] . Lives with PT denies having home health services for DC. Baseline home o2 3 l nc or cpap, 4 l required to keep sats greater than 90%. Desats to 80% with activity. Voids with assist or to bathroom with assist.
--- NOTE | 2019-08-12 12:01 | NUR ---
Visit with Soham and his Laura who is at the bedside. Soham appears weak and drifts off to sleep during my visit. He is here for recurrent aspiration pneumonia. He has a PEG tube in place which he has had for some time. He had a pacemaker placed on 08/07/19. Soham is know to this web content writer from previous admissions. He is currently followed at home by Jose Elias [facility]. He reports that he aches from being in bed. His states that she thought he would "perk up" after getting his pacemaker placed on 08/07/19 but she reports that he hasn't. He also received a blood transfusion which she thought would also help improve his strength. He declined to work with therapy this morning per Laura's report. He appears weak and frail. She voices concerns of being able to care for him at home. She reports that he needs to be ambulating with his walker for her to be able to care for him at home. She states that her 92 year old sister lives with them and they have a son who is moving into an apartment today that is attached to their home. She also continues to work outside the home, so sometimes Soham is home alone during the day. Laura reports that she does come home during her lunch break to assist with his tube feedings. He has tried a trilogy and a bipap at home in the past but because of not tolerating using them, they do not have that equipment currently in their home. Laura states that he doesn't qualify for state assistance for caregiver hours and isn't able to afford to private pay caregivers. Let her know that this web content writer would speak to JOEY Sanchez coordinator, re: discharge planning and options for assistance in their home. Discussed option of possible rehab at time of discharge. Laura states the doctors have brought up hospice as an option in the past. Answered her questions about hospice and will contact JOEY Sanchez coordinator, to see if they would qualify for some assitance through the [facility] if he chose the hospice option vs. the HH option. Discussed QOL and determining a plan of care for going forward. Soham drifted off to sleep during the conversation, however Laura was interested in more information. [facility] hospice brochure given along with the considering comfort care booklet. Laura was grateful for the information. Spoke with JOEY Sanchez coordinator, re: hospice discussion and assistance that might be available through the [facility]. Laura states she will follow up with Shannan. RODDY to remain avaialable for symptom management and continued advanced care planning. Pt has a current POLST on file from 2018 for a limited code at this time.
--- NOTE | 2019-08-12 17:31 | NUR ---
SUMMARY PT RESTING QUIETLY IN BED WATCHING TV, SPOUSE IS AT THE BEDSIDE, SHE HAS BEEN HERE SEVERAL TIMES TODAY, PT HAS BEEN PLEASANT AND COOPERATIVE WITH CARE, CONFUSED AND TIMES AND DOES NOT CONSISTENTLY FOLLOW COMMANDS OR ANSWER QUESTIONS APPROPRIATELY, PT WORKED WITH PT/OT AND HAS BEEN UP TO THE CHAIR WITH 1P ASSIST AND THE WALKER AND GAIT BELT, VSS, NO ACUTE CHANGES, WILL CONT TO MONITOR
--- NOTE | 2019-08-13 18:24 | NUR ---
SHIFT SUMMARY PT AXO TO SELF, FORGETFUL AND CONFUSED. PT ON 4L VIA NC 97%. PEG TUB FEEDINGS AND FLUSHES PER ORDERS, PT TOLERATED WELL. NEW IV PLACED THIS SHIFT, INFUSING KVO AND PER ORDERS. NO ACUTE CHANGES THIS SHIFT. PHYSICAL THERAPY AND OCCUPATIONAL THERAPY WORKED WITH PATIENT, SEE NOTE. RECOMMENDATION IS HOME WITH HOME HEALTH AND PT PREFERENCE IS [facility]. BED IN LOW POSITION, CALL LIGHT WITHIN REACH, BED ALARM ON.
[2019-08-14 05:19] LABS: PCO2 Arterial 59.1 mmHg (35-45); PO2 Arterial 82.5 mmHg (80-100)
--- NOTE | 2019-08-14 07:56 | NUR ---
SHIFT SUMMARY: 78 Y/O MALE RESTED COMFORTABLY IN BED ALL SHIFT; PT TOLERATED PEG TUBE FEEDINGS VIA JEVITY BOLUS WITH NO RESIDUALS NOTED; PTS PEG TUGE INSERTION SITE WAS CLEANSED UP AND NEW DRAIN SPONGE APPLIED SITE HAD SCANT YELLOW DRAINAGE (JEVITY ODOR NOTED WITH HOLGER RODRIGUES, CLINICAL EARTH SCIENCE FACULTY MEMBER ADVISED); PT LEFT UPPER CHEST INCISION IS COVERED WITH 1/4 INCH STERI STRIPES WITH OLD DRIED RED DRAINAGE NOTED TO SITE; PT WAS NOTED TO HAVE O2 SAT DROP FROM 99% TO 84% WITH VERY SLIGHT ACTIVITY (TRANSFERRED FROM BED TO CHAIR) AND THEN THIS O2 SAT SLOWLY RESOLVED BACK UP TO 99% WHILE WEARING O2 AT 5L/M PE NASAL CANNULA; PT DENIES PAIN OR NAUSEA; BED ALARM APPLIED, BED LOW POSITION WITH CALL LIGHT AT SIDE.
[2019-08-14] MEDS ORDERED: FURO40 PO (14:42)
[2019-08-14] MEDS ORDERED: Potassium20 MEQ/11 PT (14:49)
[2019-08-14] MEDS ORDERED: Cough Syru100 MG/5 M PO (14:50)
[2019-08-14] MEDS ORDERED: PRED10 PT (14:53)
[2019-08-14] MEDS ORDERED: ZINC15 PO (14:53)
--- NOTE | 2019-08-14 17:24 | NUR ---
PT TO DISCHARGE THIS SHIFT TO HOME WITH HOME HEALTH. PATIENT TOLERATING PEG FEEDINGS WELL. NO ACUTE CHANGES.
--- NOTE | 2019-08-14 18:16 | NUR ---
PT HAD IV REMOVED PRIOR TO DISCHARGE. NURSE WENT OVER MEDS AND DISCHARGE INSTRUCTIONS WITH PATIENTS . MEDS FAXED TO PHARMACY OF CHOICE. PATIENT DOWN TO CAR WITH .
== END 2019-08-14 18:08 | disposition home health service (06) | DRG 981 ==
LOC: ER 06:45 → MEDS 08:30 → ICUE 08:30 → ICUW 08:30 → ER 09:11 → ICUE 09:30 → PCU 08-08 15:36 → MEDS 08-09 18:39
PROVIDERS: Emergency Medicine; Internal Medicine; Internal Medicine Critical Care Medicine; Internal Medicine Endocrinology, Diabetes & Metabolism; Internal Medicine Pulmonary Disease; Pharmacist; ADMIT Hospitalist
PROC: 5A09357 Assistance with Respiratory Ventilation, Less than 24 Consecutive Hours, Continuous Positive Airway Pressure (ICD-10-PCS; principal; 2019-08-04)
PROC: 0JH606Z Insertion of Pacemaker, Dual Chamber into Chest Subcutaneous Tissue and Fascia, Open Approach (ICD-10-PCS; 2019-08-07)
PROC: 02HK3JZ Insertion of Pacemaker Lead into Right Ventricle, Percutaneous Approach (ICD-10-PCS; 2019-08-07)
PROC: 02H63JZ Insertion of Pacemaker Lead into Right Atrium, Percutaneous Approach (ICD-10-PCS; 2019-08-07)
DX: J96.21 Acute and chronic respiratory failure with hypoxia (principal); J15.1 Pneumonia due to Pseudomonas; I44.2 Atrioventricular block, complete; E87.2 Acidosis; I48.92 Unspecified atrial flutter; J96.22 Acute and chronic respiratory failure with hypercapnia; R13.12 Dysphagia, oropharyngeal phase; I73.00 Raynaud's syndrome without gangrene; G47.33 Obstructive sleep apnea (adult) (pediatric); Z90.49 Acquired absence of other specified parts of digestive tract; M10.9 Gout, unspecified; Z87.891 Personal history of nicotine dependence; I25.10 Atherosclerotic heart disease of native coronary artery without angina pectoris; I25.2 Old myocardial infarction; Z86.718 Personal history of other venous thrombosis and embolism; J43.9 Emphysema, unspecified; Z99.81 Dependence on supplemental oxygen; I73.9 Peripheral vascular disease, unspecified; D63.8 Anemia in other chronic diseases classified elsewhere; Z93.1 Gastrostomy status; Z98.61 Coronary angioplasty status
CPT/HCPCS: 0099U; 31720; 33208; 36415; 36430; 36600; 71045; 71046; 74019; 76937; 80048; 80053; 80202; 82274; 82607; 82728; 82746; 82803; 82947; 83540; 83550; 83605; 83735; 83880; 84100; 84145; 84443; 84484; 85025; 85379; 86850; 86900; 86901; 86923; 87040; 87070; 87077; 87106; 87186; 87205; 93005; 93010; 93970; 94640; 94660; 94762; 96365-59; 96375-59; 97110; 97116; 97162; 97166; 97530; 97535; 99285-25; A9270; C1785; C1898; C9113; J0330; J0690; J0696; J1644; J1650; J1940; J2250; J2270; J2370; J2405; J2543; J2704; J2930; J3010; J3370; J3475; J7040; J7050; J7120; J7512; P9016

== ENCOUNTER → 2019-08-25 | Outpatient (CLI) | payer MEDICARE, OTHER ==
[~2019-08-25] MED LIST changes: +AMOCLA500 PO; +B-1100 M1 PT; +BUDE.25 NEB; +Cough Syru100 MG/5 M PO; +Duoneb 2.5-0.5 M3 ML INH; +FOLI1 PT; +FURO40 PO; +GABA300 PO; +GLYC2; +LIDO700A20 TOP; +LONHALA MA25 MCG/11 INH; +OMEPRAZOLE20 MG; +OMEPRAZOLE20 MG PO; +OXYGEN; +PANTOPRAZOLE SO40 M2 PO; +PRED10 PT; +Potassium20 MEQ/11 PO; +ZINC15 PO; +[UNRECOGNIZED DRUG - OTHER] INH
[2019-08-25 15:55] LABS: Alanine Aminotransfer (ALT/SGP 32 U/L (12-78); Albumin/Globulin Ratio 0.8 (0.8-1.8); Alk Phos 84 U/L (50-136); Anion Gap 2 mmol/L (6-16); Aspartate Aminotrans (AST/SGOT 25 U/L (12-37); Bilirubin, Total 0.5 mg/dL (0.1-1.0); Blood Urea Nitrogen 30 mg/dL (8-24); Bun/Creatinine Ratio 39.9 (12.0-20.0); CO2, Blood 43 mmol/L (21-32); Calcium, Blood 9.3 mg/dL (8.5-10.1); Chloride, Blood 91 mmol/L (98-108); Creatinine, Blood 0.75 mg/dL (0.60-1.20); Globulin, Blood 3.8 g/dL (2.2-4.0); Glomerular Filtration Rate >60 (60-); Glucose, Blood 124 mg/dL (70-99); Potassium, Blood 4.3 mmol/L (3.5-5.5); Sodium, Blood 136 mmol/L (136-145); Total Protein, Blood 6.8 g/dL (6.4-8.2)
== END | disposition home or self-care (01) ==
LOC: LAB 13:30 → LAB SHORT 13:30 → EDSTATUS 08-21 14:40 → LAB FUT 08-21 14:40
PROVIDERS: Physician Assistant
DX: R73.9 Hyperglycemia, unspecified (principal)
CPT/HCPCS: 80053; 83036

== ENCOUNTER 2019-08-28 07:53 | Emergency (ER) | payer MEDICARE, OTHER ==
[~2019-08-28] VITALS: Ht 172.7 cm; Wt 59.9 kg
[~2019-08-28 07:53] MED LIST changes: -AMOCLA500 PO; -B-1100 M1 PT; -Duoneb 2.5-0.5 M3 ML INH; -FOLI1 PT; -GLYC2; -LIDO700A20 TOP; -OMEPRAZOLE20 MG; -OMEPRAZOLE20 MG PO; -PANTOPRAZOLE SO40 M2 PO; -Potassium20 MEQ/11 PO; -[UNRECOGNIZED DRUG - OTHER] INH
[2019-08-28] MEDS ORDERED: GABA300 PO (08:24)
[2019-08-28] MEDS ORDERED: FURO40 PO (08:24)
[2019-08-28] MEDS ORDERED: Brovana15 MCG/2 M INH (08:24)
[2019-08-28] MEDS ORDERED: BUDE.25 NEB (08:24)
[2019-08-28] MEDS ORDERED: PRED20 PO (08:25)
[2019-08-28] MEDS ORDERED: OMEPRAZOLE20 MG PO (08:25)
[2019-08-28] MEDS ORDERED: OMEPRAZOLE20 MG (08:25)
[2019-08-28] MEDS ORDERED: GLYC2 (08:25)
[2019-08-28 08:30] LABS: BASOPHILS ABSOLUTE AUTO 0.02 K/mm3 (0.00-0.23); BASOPHILS PERCENT AUTO 0 % (0-2); EOSINOPHILS ABSOLUTE AUTO 0.02 K/mm3 (0.00-0.68); EOSINOPHILS PERCENT AUTO 0 % (0-6); Hematocrit 42.5 % (37.0-53.0); Hemoglobin 12.8 g/dL (13.5-17.5); IMMATURE GRAN ABSOLUTE AUTO 0.26 K/mm3 (0.00-0.10); IMMATURE GRAN PERCENT AUTO 2 % (0-1); LYMPHOCYTES ABSOLUTE AUTO 2.16 K/mm3 (0.84-5.20); LYMPHOCYTES PERCENT AUTO 20 % (21-46); MONOCYTES ABSOLUTE AUTO 1.41 K/mm3 (0.16-1.47); MONOCYTES PERCENT AUTO 13 % (4-13); Mean Corpuscular HGB Conc 30.1 g/dL (31.5-36.5); Mean Corpuscular Volume 113 fL (80-100); Mean Platelet Volume 10.7 fL (9.1-12.4); NEUTROPHILS ABSOLUTE AUTO 7.01 K/mm3 (1.96-9.15); NEUTROPHILS PERCENT AUTO 64 % (41-73); Platelet Count 234 K/mm3 (150-400); RDW Coefficient Variation 19.3 % (11.7-14.2); RDW Standard Deviation 80.4 fL (35.1-46.3); Red Blood Cell Count 3.77 M/mm3 (4.30-5.90); White Blood Cell Count 10.88 K/mm3 (4.00-11.30)
[2019-08-28 08:42] LABS: Alanine Aminotransfer (ALT/SGP 46 U/L (12-78); Albumin/Globulin Ratio 0.7 (0.8-1.8); Alk Phos 89 U/L (50-136); Anion Gap 5 mmol/L (6-16); Aspartate Aminotrans (AST/SGOT 29 U/L (12-37); Bilirubin, Total 0.4 mg/dL (0.1-1.0); Blood Urea Nitrogen 30 mg/dL (8-24); Bun/Creatinine Ratio 47.2 (12.0-20.0); CO2, Blood 35 mmol/L (21-32); Calcium, Blood 9.1 mg/dL (8.5-10.1); Chloride, Blood 97 mmol/L (98-108); Creatinine, Blood 0.64 mg/dL (0.60-1.20); Globulin, Blood 4.2 g/dL (2.2-4.0); Glomerular Filtration Rate >60 (60-); Glucose, Blood 108 mg/dL (70-99); Potassium, Blood 4.5 mmol/L (3.5-5.5); Sodium, Blood 137 mmol/L (136-145); Total Protein, Blood 7.2 g/dL (6.4-8.2); Troponin I 0.018 ng/mL (0.000-0.040)
[2019-08-28 09:07] LABS: International Normalized Ratio 1.01; Prothrombin Time Results 10.7 Sec (9.7-11.5)
[2019-08-28] MEDS ORDERED: LIDO700A20 TOP (10:30)
--- NOTE | 2019-08-28 10:30 | NUR ---
Palliative Care ER visit. Notes reviewed and update obtained from prior to my visit. Pt and well known to me from previous admissions over the past 1-2 years. reports that there are no new acute findings at this time. Pt has had a couple of falls at home due to weakness and/or loss of balance. He is reporting back pain from the fall. Mr Billings was d/c'd from [facility] after a 10 day stay for acute on chronic respiratory failure on 08/14/19. PMH incl. AV block/PPM, chronic anemia and malnutrition, CAD with stenting, PVD, DVT, KETTY, hypoxia O2 dep, hypercapnia, alcholism and recurrent aspiration and pneumonia due to oropharyngeal dysphagia with peg tube feedings for nearly a year now. Pt had continued to consume liquids (primarily alcholol) and food by mouth even after peg tube placement. Pt has documented memory and cognitive changes noted during hospital stays also. Pt has not seen his PCP since his d/c due to activity intolerance. He did see a electrician radio but reports that he desaturated to below 70% on biox with the effort of getting out for a medical appointment. [facility] has been involved in his care off an on and states they were due out again to reeval and recertify services. Visit made to ER#3. Pt supine, mostly lying flat on gurney with O2 on. I reintroduced myself to pt and . Pt does not remember me but does. Easy rapport with both and conversation present. We reviewed many of the concerns has expressed before, discussed options for care, including increased care in the home, obtaining placement, continued HH services, consideration of hospice. would very much like added support and better s/s management in the home but wants the pt to be able to return to the hospital if he became acutely ill again. She verbalizes understanding that the trajectory of his multiple end stage chronic illnesses will limit interventions that can be done or anticipated benefits of tx. We discussed benefit vs burden of medical care for end stage processes. She states pt is only rarely having anything by mouth now and that he has not had any aspiration of his tube feedings that she is aware of. She does gravity feedings three times a day. She reports that normally, pt is able to be up and around independently. She and Dave are aware that he is being discharged home today and they are satisfied with that plan. Pt prefers to be home and this has been consistent in all of our past conversations. is aware that if pt were to fall and fx bone that he would probably not tolerate surgical intervention. She states, "He'd be done for if he needed surgery". to call [facility] for scheduling a visit and continuation of services. I will contact [facility] and give an update on my visit. Spoke with pt's bedside RN and Laura from [facility] to report on my visit. to discuss transitioning to hospice when she feels it is time. She understands that pt's respiratory status is likely his most limiting chronic illness. RX for lidoderm patches written per and states these have worked well for him in the past. Pt is very quiet with eyes closed but responds appropriately when spoken to. He denies respiratory distress but is sl dyspnic with conversation. He reports 5/10 pain in back from his fall. He is thin, pale and cachectic. will f/u with Denice Francis at [facility] if lidoderm patch is not effective for pain relief or if increased respiratory s/s noted.
== END 2019-08-28 10:55 | disposition home or self-care (01) ==
LOC: ER 07:53
PROVIDERS: Emergency Medicine
DX: S39.012A Strain of muscle, fascia and tendon of lower back, initial encounter (principal); R53.1 Weakness; I25.10 Atherosclerotic heart disease of native coronary artery without angina pectoris; D64.9 Anemia, unspecified; J43.9 Emphysema, unspecified; I73.9 Peripheral vascular disease, unspecified; Z86.711 Personal history of pulmonary embolism; Z86.718 Personal history of other venous thrombosis and embolism; W19.XXXA Unspecified fall, initial encounter
CPT/HCPCS: 36415; 71045; 72100; 80053; 84484; 85025; 85610; 93005; 93010; 99284-25

== ENCOUNTER 2019-09-04 14:06 | Inpatient (IN) | payer MEDICARE, OTHER ==
[~2019-09-04] VITALS: Ht 172.7 cm; Wt 54.9 kg
[~2019-09-04 14:06] MED LIST changes: -AMOCLA500 PO; -B-1100 M1 PT; -Duoneb 2.5-0.5 M3 ML INH; -FOLI1 PT; -PANTOPRAZOLE SO40 M2 PO; -Potassium20 MEQ/11 PO; -[UNRECOGNIZED DRUG - OTHER] INH
[2019-09-04 16:01] LABS: BASOPHILS ABSOLUTE AUTO 0.02 K/mm3 (0.00-0.23); BASOPHILS PERCENT AUTO 0 % (0-2); EOSINOPHILS ABSOLUTE AUTO 0.17 K/mm3 (0.00-0.68); EOSINOPHILS PERCENT AUTO 2 % (0-6); Hematocrit 37.8 % (37.0-53.0); Hemoglobin 11.2 g/dL (13.5-17.5); IMMATURE GRAN ABSOLUTE AUTO 0.09 K/mm3 (0.00-0.10); IMMATURE GRAN PERCENT AUTO 1 % (0-1); LYMPHOCYTES ABSOLUTE AUTO 1.26 K/mm3 (0.84-5.20); LYMPHOCYTES PERCENT AUTO 17 % (21-46); MONOCYTES ABSOLUTE AUTO 1.36 K/mm3 (0.16-1.47); MONOCYTES PERCENT AUTO 18 % (4-13); Mean Corpuscular HGB 34.5 pg (26.0-34.0); Mean Corpuscular HGB Conc 29.6 g/dL (31.5-36.5); Mean Platelet Volume 10.3 fL (9.1-12.4); NEUTROPHILS ABSOLUTE AUTO 4.75 K/mm3 (1.96-9.15); NEUTROPHILS PERCENT AUTO 62 % (41-73); Platelet Count 254 K/mm3 (150-400); RDW Coefficient Variation 19.5 % (11.7-14.2); Red Blood Cell Count 3.25 M/mm3 (4.30-5.90); White Blood Cell Count 7.65 K/mm3 (4.00-11.30)
[2019-09-04 16:17] LABS: Mean Corpuscular Volume 116 fL (80-100)
[2019-09-04 16:22] LABS: Alanine Aminotransfer (ALT/SGP 32 U/L (12-78); Albumin, Blood 2.8 g/dL (3.4-5.0); Albumin/Globulin Ratio 0.6 (0.8-1.8); Alk Phos 158 U/L (50-136); Anion Gap 3 mmol/L (6-16); Aspartate Aminotrans (AST/SGOT 20 U/L (12-37); Bilirubin, Total 0.4 mg/dL (0.1-1.0); Blood Urea Nitrogen 25 mg/dL (8-24); Bun/Creatinine Ratio 32.4 (12.0-20.0); CO2, Blood 43 mmol/L (21-32); Calcium, Blood 8.8 mg/dL (8.5-10.1); Chloride, Blood 92 mmol/L (98-108); Creatinine, Blood 0.77 mg/dL (0.60-1.20); Globulin, Blood 4.4 g/dL (2.2-4.0); Glomerular Filtration Rate >60 (60-); Glucose, Blood 84 mg/dL (70-99); Sodium, Blood 138 mmol/L (136-145); Total Protein, Blood 7.2 g/dL (6.4-8.2)
[2019-09-04] MEDS ORDERED: [UNRECOGNIZED DRUG - OTHER] INH (17:21)
[2019-09-04] MEDS ORDERED: LONHALA MA25 MCG/11 INH (18:58)
[2019-09-04] MEDS ORDERED: Potassium20 MEQ/11 PO (18:59)
[2019-09-04] MEDS ORDERED: PANTOPRAZOLE SO40 M2 PO (18:59)
--- NOTE | 2019-09-05 04:42 | NUR ---
SHIFT SUMMARY PT ER ADMIT THIS SHIFT FOR ABCESS. PT S/P REMOVAL OF PEG TUBE R/T TO ABCESS AROUND TUBE SITE. PT ARRIVES TO MEDICAL UNIT WITH WOUND TO LLQ OPEN TO AIR. SITE IS SCABBED OVER BUT IS RED, SWOLLEN AND INFLAMED WITH SEROSANGUINEOUS DRAINAGE. SITE IS TENDER UPON PALPATION. PT RECEIVED IV ABX IN ED BEFORE ARRIVING TO UNIT. SITE CLEANED, PHOTOGRAPED AND DRESSED. PT A/O TO SELF AND FOLLOWS DIRECTION, PT KNOWS PLACE BUT UNABLE TO TELL ME THE YEAR. VERY FORGETFUL AND ATTEMPTS TO CLIMB OOB SEVERAL TIMES THIS SHIFT. PT AFFECT IS LABILE, HE GETS EASILY AGITATED WHEN STAFF ARE TRYING TO PERFORM CARE. PT WEARS BIPAP T/IO THE NIGHT. DIFFICULT TO OBTAIN SATS ON FINGERS DUE TO PT RAYNAUD'S. FORHEAD PROBE IS BEING USED TO OBTAINED O2 READINGS. PT SATS WNL ON 2L. MOST OF ADMISSION COMPLETE USING PCI ASIDE FROM MED REC. THERE HAVE BEEN NO ACUTE CHANGES SINCE ARRIVING TO MED UNIT. BED IN LOWEST POSITION, CALL LIGHT WITHIN REACH. WILL CONTINUE TO MONITOR AND REPORT TO ONCOMING RN.
[2019-09-05 04:53] LABS: Mean Corpuscular HGB Conc 29.4 g/dL (31.5-36.5); Mean Corpuscular Volume 116 fL (80-100); Mean Platelet Volume 10.8 fL (9.1-12.4); Platelet Count 211 K/mm3 (150-400); RDW Coefficient Variation 19.5 % (11.7-14.2); RDW Standard Deviation 84.7 fL (35.1-46.3); Red Blood Cell Count 2.94 M/mm3 (4.30-5.90); White Blood Cell Count 12.26 K/mm3 (4.00-11.30)
[2019-09-05 05:16] LABS: Anion Gap 4 mmol/L (6-16); Blood Urea Nitrogen 25 mg/dL (8-24); Bun/Creatinine Ratio 35.5 (12.0-20.0); CO2, Blood 38 mmol/L (21-32); Calcium, Blood 8.2 mg/dL (8.5-10.1); Chloride, Blood 100 mmol/L (98-108); Creatinine, Blood 0.71 mg/dL (0.60-1.20); Glomerular Filtration Rate >60 (60-); Glucose, Blood 85 mg/dL (70-99); Magnesium, Blood 2.2 mg/dL (1.6-2.4); Phosphorus, Blood 2.6 mg/dL (2.5-4.9); Sodium, Blood 142 mmol/L (136-145)
[2019-09-05 05:47] LABS: BAND PERCENT MAN 10 % (0-8); BASOPHILS PERCENT MAN 0 % (0-2); EOSINOPHILS ABSOLUTE MAN 0.12 K/mm3 (0.00-0.68); EOSINOPHILS PERCENT MAN 1 % (0-6); LYMPHOCYTES ABSOLUTE MAN 0.73 K/mm3 (0.84-5.20); LYMPHOCYTES PERCENT MAN 6 % (21-46); MONOCYTES ABSOLUTE MAN 0.61 K/mm3 (0.16-1.47); MONOCYTES PERCENT MAN 5 % (4-13); NEUTROPHILS ABSOLUTE MAN 10.78 K/mm3 (1.96-9.15); SEG NEUTROPHILS PERCENT MAN 78 % (41-73); TOTAL CELLS COUNTED 100
[2019-09-05] MEDS ORDERED: LIDO700A20 TOP (08:09)
--- NOTE | 2019-09-05 10:12 | NUR ---
Initial palliative care consult: Met with Soham briefly in his room this morning. He is awake, alert and sitting up in the bedside chair. His visited earlier per nursing report. No family is currently in his room. Nursing reports pt has an infection at the PEG tube site. PEG tube was removed in the ER and pt is currently on antibiotics for the infection. Nursing reports plan is for IV antibiotics, IV nutrition and a GI consult for further recommendations re: PEG placement. Pt is unable to safely swallow. This is a chronic problem. Will plan to visit with pt and together to discuss POLST form as current code status for limited code is different than the POLST on file from 05/03/18. Will update POLST as necessary to match pt's current wishes for medical care.
--- NOTE | 2019-09-05 11:50 | NUR ---
PATIENT DID NOT EAT BREAKFAST THIS SHIFT DUE TO BEING NPO AT THIS TIME. RN NOTIFIED.
--- NOTE | 2019-09-05 17:49 | NUR ---
SUMMARY PT RESTING IN BED WATCHING TV, HAS BEEN UP IN THE CHAIR MULTIPLE TIMES TODAY, IS A 1 PERSON ASSIST, BED ALARM AND CHAIR ALARM ON FOR SAFETY, PT DOES NOT REMEMBER TO USE HIS CALL LIGHT, HAS BEEN IN TO VISIT, VSS, NO ACUTE CHANGES, WILL CONT TO MONITOR
--- NOTE | 2019-09-06 04:22 | NUR ---
SHIFT SUMMARY ADMITTED FOR CELLULITIS (ABSCESS ON LEFT ABDOMEN AROUND FORMER PEG TUBE INSERTION SITE). LIMITED CODE. A&O TO SELF & FAMILY, FORGETFUL. 3 LPM O2 IS BASELINE. 1 ASSIST TO BSC. CLINIMIX INFUSING @ 100 ML/HR. IV ANTIBIOTICS SCHEDULED. CONTINUOUS PULSE OX ATTACHED TO EAR DUE TO POOR PERIPHERAL PERFUSION. PT IS NPO. PACEMAKER IN PLACE. HX: AFIB, ESOPHAGEAL STRICTURES W/FREQUENT ASPIRATION, GI BLEEDS, CAD, PVD, COLLITIS, COPD.
[2019-09-06 05:49] LABS: BASOPHILS ABSOLUTE AUTO 0.01 K/mm3 (0.00-0.23); BASOPHILS PERCENT AUTO 0 % (0-2); EOSINOPHILS ABSOLUTE AUTO 0.25 K/mm3 (0.00-0.68); EOSINOPHILS PERCENT AUTO 6 % (0-6); Hematocrit 31.3 % (37.0-53.0); Hemoglobin 9.4 g/dL (13.5-17.5); IMMATURE GRAN ABSOLUTE AUTO 0.17 K/mm3 (0.00-0.10); IMMATURE GRAN PERCENT AUTO 4 % (0-1); LYMPHOCYTES ABSOLUTE AUTO 0.92 K/mm3 (0.84-5.20); LYMPHOCYTES PERCENT AUTO 21 % (21-46); MONOCYTES ABSOLUTE AUTO 1.17 K/mm3 (0.16-1.47); MONOCYTES PERCENT AUTO 26 % (4-13); Mean Corpuscular HGB 34.7 pg (26.0-34.0); Mean Corpuscular Volume 116 fL (80-100); Mean Platelet Volume 10.6 fL (9.1-12.4); NEUTROPHILS ABSOLUTE AUTO 1.96 K/mm3 (1.96-9.15); NEUTROPHILS PERCENT AUTO 44 % (41-73); Platelet Count 186 K/mm3 (150-400); RDW Coefficient Variation 19.2 % (11.7-14.2); RDW Standard Deviation 82.9 fL (35.1-46.3); Red Blood Cell Count 2.71 M/mm3 (4.30-5.90); White Blood Cell Count 4.48 K/mm3 (4.00-11.30)
[2019-09-06 06:36] LABS: Albumin, Blood 2.2 g/dL (3.4-5.0); Anion Gap 3 mmol/L (6-16); Blood Urea Nitrogen 24 mg/dL (8-24); Bun/Creatinine Ratio 41.1 (12.0-20.0); CO2, Blood 33 mmol/L (21-32); Calcium, Blood 8.5 mg/dL (8.5-10.1); Chloride, Blood 103 mmol/L (98-108); Creatinine, Blood 0.58 mg/dL (0.60-1.20); Glomerular Filtration Rate >60 (60-); Glucose, Blood 108 mg/dL (70-99); Phosphorus, Blood 2.3 mg/dL (2.5-4.9); Potassium, Blood 3.5 mmol/L (3.5-5.5); Sodium, Blood 139 mmol/L (136-145)
--- NOTE | 2019-09-06 15:02 | NUR ---
ALERT. FORGETFUL. ALARMS USED. DESATS TO 70'S WHEN AMBULATING FROM BED TO CHAIR. FINGERS DUSKY IN APPEARANCE WHEN IN CHAIR. BRUISING AROUND LEFT C.W. PACEMAKER SITE, BUT NO DRAINAGE. LARGE AMOUNT OF DRAINAGE FROM OLD PEG TUBE SITE ON LEFT ABD. SITE COMPARED TO PICTURE TAKEN ON ADMIT APPEARS LESS RED, BUT NO SCAB AND IS DRAINING. IV PATENT. WCTM.
--- NOTE | 2019-09-06 15:34 | NUR ---
RT WRIST IV INFILTRATED WITH SMALL AMOUNT OF SWELLING. WARM SHOWER CAP PLACED AROUND WRIST TO HELP ABSORPTION. WCTM.METALLURGIST PROCESS NOTIFIED WILL NEED TO PLACE IV USING ULTRASOUND.
--- NOTE | 2019-09-07 04:30 | NUR ---
SHIFT SUMMARY PT GETS CONFUSED AT TIMES AND TRIES TP GET OUT OF BED W/ OUT USING CALL LIGHT . PT YELLS OUT WHEN HE NEEDS ASSISTANCE. PT IS VERY WEAK AND UNSTEADY. PT COMPLAINS OF BACK PAIN. LIDO PATCH PLACED W/ SOME RELIEF. PT REFUSED LA TYLENOL. PT DID NOT TOLERATE HIS CPAP WELL THIS SHIFT. PT SPO2 HAS MAINTAINED IN 90'S VIA O2. PT DOES BECOME SOB WITH MINIMAL EXERTION. PT HAS FREQUENT URGE TO VOID. PT CURRENTLY WATCHING TV IN NO DISTRESS. CALL LIGHT IN REACH AND BED ALARM ON.
[2019-09-07 04:52] LABS: Anion Gap 4 mmol/L (6-16); Blood Urea Nitrogen 20 mg/dL (8-24); Bun/Creatinine Ratio 33.3 (12.0-20.0); CO2, Blood 31 mmol/L (21-32); Calcium, Blood 9.1 mg/dL (8.5-10.1); Chloride, Blood 105 mmol/L (98-108); Glomerular Filtration Rate >60 (60-); Glucose, Blood 98 mg/dL (70-99); Magnesium, Blood 2.4 mg/dL (1.6-2.4); Potassium, Blood 4.1 mmol/L (3.5-5.5); Sodium, Blood 140 mmol/L (136-145)
--- NOTE | 2019-09-07 09:20 | NUR ---
DR.SUBHAJIT LOPEZ IN TO SEE PATIENT. IN ROOM. MD REQUEST SURGEON CONSULT.
--- NOTE | 2019-09-07 12:11 | NUR ---
Palliative Care note: EMR reviewed and Dr's PN, GI consult reviewed in entirety. Pal Care to remain available for support and review of options pending Surgical consult for replacement of G-tube for nutritional support.
--- NOTE | 2019-09-07 14:00 | NUR ---
DR. GIORGI FAIRBANKS IN TO SEE PATIENT. GIVEN 'S PHONE NUMBERS SO HE CAN ADVISE HER OF HIS THOUGHTS ABOUT SURGERY/RADIOLOGIST INTERVENTION.
--- NOTE | 2019-09-07 16:30 | NUR ---
ALERT. FORGETFUL. TO CHAIR OFTEN TODAY. POSSIBLE G TUBE PLACEMENT NEXT WEEK. HANDS LOOKS MUCH BETTER TODAY, NOT DUSKY APPEARING YESTERDAY. C/O BACK PAIN, BUT REFUSES PAIN MEDS WHEN OFFERED. CONTINUOUS SAT MONITOR ON. SATS LOW 90'S ON 2-3 LPM HUMIDIFIED OXYGEN. TM
[2019-09-08 05:27] LABS: Hematocrit 33.9 % (37.0-53.0); Hemoglobin 10.6 g/dL (13.5-17.5); Mean Corpuscular HGB 34.2 pg (26.0-34.0); Mean Corpuscular HGB Conc 31.3 g/dL (31.5-36.5); Mean Platelet Volume 10.4 fL (9.1-12.4); Platelet Count 223 K/mm3 (150-400); White Blood Cell Count 6.31 K/mm3 (4.00-11.30)
[2019-09-08 05:28] LABS: Mean Corpuscular Volume 109 fL (80-100)
[2019-09-08 05:48] LABS: Percent Saturation 29.7 % (20.0-50.0)
[2019-09-08 05:52] LABS: BAND PERCENT MAN 12 % (0-8); BASOPHILS ABSOLUTE MAN 0.12 K/mm3 (0.00-0.23); BASOPHILS PERCENT MAN 2 % (0-2); EOSINOPHILS ABSOLUTE MAN 0.37 K/mm3 (0.00-0.68); EOSINOPHILS PERCENT MAN 6 % (0-6); LYMPHOCYTES ABSOLUTE MAN 1.82 K/mm3 (0.84-5.20); LYMPHOCYTES PERCENT MAN 29 % (21-46); METAMYELOCYTE ABSOLUTE MAN 0.12 K/mm3 (0.00-0.00); METAMYELOCYTE PERCENT MAN 2 % (0-0); MONOCYTES ABSOLUTE MAN 0.63 K/mm3 (0.16-1.47); MONOCYTES PERCENT MAN 10 % (4-13); MYELOCYTE ABSOLUTE MAN 0.06 K/mm3 (0.00-0.00); MYELOCYTE PERCENT MAN 1 % (0-0); NEUTROPHILS ABSOLUTE MAN 3.15 K/mm3 (1.96-9.15); SEG NEUTROPHILS PERCENT MAN 38 % (41-73); TOTAL CELLS COUNTED 100
[2019-09-08 05:58] LABS: Magnesium, Blood 2.3 mg/dL (1.6-2.4)
[2019-09-08 06:01] LABS: Alanine Aminotransfer (ALT/SGP 28 U/L (12-78); Albumin, Blood 2.6 g/dL (3.4-5.0); Albumin/Globulin Ratio 0.7 (0.8-1.8); Alk Phos 161 U/L (50-136); Anion Gap 6 mmol/L (6-16); Aspartate Aminotrans (AST/SGOT 28 U/L (12-37); Bilirubin, Total 0.5 mg/dL (0.1-1.0); Blood Urea Nitrogen 19 mg/dL (8-24); Bun/Creatinine Ratio 27.7 (12.0-20.0); CO2, Blood 27 mmol/L (21-32); Chloride, Blood 105 mmol/L (98-108); Creatinine, Blood 0.69 mg/dL (0.60-1.20); Globulin, Blood 3.9 g/dL (2.2-4.0); Glomerular Filtration Rate >60 (60-); Glucose, Blood 104 mg/dL (70-99); Sodium, Blood 138 mmol/L (136-145); Total Protein, Blood 6.5 g/dL (6.4-8.2); Triglycerides 219 mg/dL (30-160)
--- NOTE | 2019-09-08 06:02 | NUR ---
SHIFT SUMMARY- PT. ALERT W/INTERMITTENT CONFUSION, WAS UP ALL NIGHT RELOCATING FROM THE BED TO THE CHAIR. PT. C/O BACK PAIN. LIDOCAINE PATCH APPLIED PER EMAR. PT. REFUSED TYLENOL SUPP, HEATING PAD IN PLACE. PT. ABLE TO FALL ASLEEP EARLY THIS AM. APPEARS TO BE RESTING COMFORTABLY, NO APPARENT DISTRESS NOTED. CLINIMIX INFUSING. CALL LIGHT WITHIN REACH, SIDE RAILS UP X2, AND BED ALARM ON FOR SAFETY. WILL CONT TO MONITOR.
--- NOTE | 2019-09-08 19:19 | NUR ---
SHIFT SUMMARY CLEANED OLD PEG SITE AND REDRESSED, SITE SHOWS SOME OOZING, BUT MINIMAL. AT BEDSIDE.CALLED APPROPRIATELY AT TIMES TO GET FROM BED TO CHAIR. CLINIMIX RUNNING. PT STILL NPO AND ON 3L OXYGEN. R BUTTOCK STILL HAS SM SORE, MEPILEX IN PLACE, FREQUENT REPOSITIONING. PT PAINFUL BUT DELCINED RECTAL TYLENOL OR IV MS, HEAT PACK UTILIZED WHICH WORKED WELL. DR OWEN TO DO PROCEDURE LIKELY TOMORROW PER DR TATUM.
--- NOTE | 2019-09-09 05:02 | NUR ---
SHIFT SUMMARY- NO ACUTE CHANGES OVERNIGHT. PT. SLEPT ON/OFF DURING THE NIGHT, NO APPARENT DISTRESS NOTED. TPN INFUSING W/LIPIDS, PT. TOLERATING WELL. DENIED ANY NEEDS T/O THE NIGHT. CALL LIGHT WITHIN REACH, SIDE RAILS UP X2, AND BED ALARM ON. WILL CONT TO MONITOR.
[2019-09-09 05:27] LABS: Magnesium, Blood 2.4 mg/dL (1.6-2.4)
[2019-09-09 05:29] LABS: Anion Gap 5 mmol/L (6-16); Blood Urea Nitrogen 21 mg/dL (8-24); Bun/Creatinine Ratio 29.8 (12.0-20.0); CO2, Blood 28 mmol/L (21-32); Calcium, Blood 8.7 mg/dL (8.5-10.1); Chloride, Blood 105 mmol/L (98-108); Glomerular Filtration Rate >60 (60-); Glucose, Blood 107 mg/dL (70-99); Phosphorus, Blood 3.3 mg/dL (2.5-4.9); Potassium, Blood 4.1 mmol/L (3.5-5.5); Sodium, Blood 138 mmol/L (136-145)
--- NOTE | 2019-09-09 15:47 | NUR ---
PT TO [facility] FOR GTUBE PLACEMENT. SPOUSE AT BEDSIDE.
--- NOTE | 2019-09-09 16:44 | NUR ---
SHIFT SUMMARY- PT A/OX2, PERSON AND PLACE THIS AM, PT DOES HAVE BASELINE DEMENTIA AND INCREASED CONFUSION AT TIMES. SPOUSE CONCERNED THIS AM THAT PT WAS TO DROWSY BUT WOULD AWAKE TO VERBAL STIMULI AND ANSWER QUESTIONS, SPOUSE REPORTS PT IS SENSITIVE TO NARCOTICS AND WOULD PREFER HE NOT RECEIVE THEM. PT DID REPORT BACK PAIN AT TIMES THAT WOULD DECREASE WITH KPAD, SPOUSE REPORTS COMPRESSION FX TO HIS BACK. LS DIMINISHED, ON 2L N/C WHICH SPOUSE REPORTS IS HIS BASELINE. CPAP AT BEDSIDE, ON CONT BIOX. PT WITH CELLULITIS SITE TO LEFT ABD FROM PEG TUBE. NEW PEG TUBE BEING PLACED AT THIS TIME WITH DR OWEN. PRESSURE ULCER TO RIGHT BUTTOCK, MEPILEX IN PLACE. PT UP TO CHAIR WITH 1 ASSIST. NO OTHER ACUTE CHANGES THIS SHIFT. PT REMAINS NPO AND ON CLINIMIX.
--- NOTE | 2019-09-09 17:54 | NUR ---
PT BACK FROM GTUBE PLACEMENT. PT SLEEPING BUT AWAKENS TO VERBAL STIMULI AND SLOW TO RESPOND. VSS. GTUBE TO MID ABD SECURED WITH GAUZE AND TAPE, MINIMAL BLEEDING NOTED TO SITE.
--- NOTE | 2019-09-10 06:12 | NUR ---
SHIFT SUMMARY- NO ACUTE CHANGES OVERNIGHT. C/O PAIN 03/05 1X. MEDICATED PER EMAR, TOLERATED WELL. PT. SLEPT WELL T/O THE SHIFT, NO APPARENT DISTRESS NOTED. DSG TO ABD C/D/I. CALL LIGHT WITHIN REACH, SIDE RAILS UP X2, AND BED ALARM ON. WILL CONT TO MONITOR.
--- NOTE | 2019-09-10 17:48 | NUR ---
SHIFT SUMMARY- PT A/O TO PERSON AND PLACE. PT DOES HAVE BASELINE DEMENTIA. PT AWAKE MOST OF THE SHIFT AND WAS ABLE TO HOLD CONVERSATIONS. PT REPORTS CHRONIC BACK PAIN, LIDODERM PATCH APPLIED AND KPAD PLACED. PT ALSO RPEORTS TENDERNESS TO ABD AT SITE OF NEW GTUBE, PT DENIED NEED FOR TYLENOL. GTUBE SITE CLEANED AND NEW GAUZE DRESSING APPLIED. LS DIMINISHED ON 2-3L N/C, MOIST NPC. PT STARTED ON TUBE FEEDS TODAY, PT TOLERATING WELL WITH NO RESIDUALS THUS FAR. PT TO START AT GOAL INTAKE THIS EVENING. PT UP TO RECLINER WITH 1 ASSIST WITH FWW, PT NEEDS ENCOURAGEMENT TO GET UP OUT OF BED. POSS D/C HOME TOMORROW WITH SPOUSE. SPOUSE WOULD LIKE TO BE CALLED WHEN DISCHARGE ORDERS PLACED. NO OTHER ACUTE CHANGES THIS SHIFT.
--- NOTE | 2019-09-10 21:55 | NUR ---
2000 tube feeding held. residual is 280 ml.
--- NOTE | 2019-09-11 04:01 | NUR ---
SHIFT SUMMARY PT HAD NO NEW ISSUES. PT TUBE FEEDING WAS HELD DUR TO RESIDUAL, 280 ML. PT HAD SOME INCREASED BACK PAIN AND TX WITH TYLENOL. PT HAS BEEN SLEEPING WITH CPAP WELL. PT CURRENTLY SLEEPING IN NO DISTRESS. CALL LIGHT IN REACH AND BED ALARM ON.
[2019-09-11 04:35] LABS: Hematocrit 31.9 % (37.0-53.0); Hemoglobin 9.9 g/dL (13.5-17.5); Mean Corpuscular HGB 34.3 pg (26.0-34.0); Mean Corpuscular Volume 110 fL (80-100); Mean Platelet Volume 10.9 fL (9.1-12.4); Platelet Count 222 K/mm3 (150-400); RDW Coefficient Variation 18.8 % (11.7-14.2); RDW Standard Deviation 76.8 fL (35.1-46.3); Red Blood Cell Count 2.89 M/mm3 (4.30-5.90); White Blood Cell Count 5.93 K/mm3 (4.00-11.30)
[2019-09-11 04:57] LABS: Alanine Aminotransfer (ALT/SGP 53 U/L (12-78); Albumin, Blood 2.4 g/dL (3.4-5.0); Albumin/Globulin Ratio 0.6 (0.8-1.8); Alk Phos 176 U/L (50-136); Anion Gap 5 mmol/L (6-16); Aspartate Aminotrans (AST/SGOT 37 U/L (12-37); Bilirubin, Total 0.6 mg/dL (0.1-1.0); Blood Urea Nitrogen 20 mg/dL (8-24); Bun/Creatinine Ratio 32.3 (12.0-20.0); CO2, Blood 28 mmol/L (21-32); Calcium, Blood 8.6 mg/dL (8.5-10.1); Chloride, Blood 107 mmol/L (98-108); Creatinine, Blood 0.62 mg/dL (0.60-1.20); Globulin, Blood 3.8 g/dL (2.2-4.0); Glomerular Filtration Rate >60 (60-); Glucose, Blood 82 mg/dL (70-99); Potassium, Blood 4.1 mmol/L (3.5-5.5); Sodium, Blood 140 mmol/L (136-145); Total Protein, Blood 6.2 g/dL (6.4-8.2)
[2019-09-11 05:20] LABS: BAND PERCENT MAN 9 % (0-8); BASOPHILS PERCENT MAN 0 % (0-2); EOSINOPHILS ABSOLUTE MAN 0.17 K/mm3 (0.00-0.68); EOSINOPHILS PERCENT MAN 3 % (0-6); LYMPHOCYTES % ATYPICAL MANUAL 4 % (0-0); LYMPHOCYTES ABSOLUTE MAN 2.01 K/mm3 (0.84-5.20); LYMPHOCYTES PERCENT MAN 30 % (21-46); METAMYELOCYTE ABSOLUTE MAN 0.05 K/mm3 (0.00-0.00); METAMYELOCYTE PERCENT MAN 1 % (0-0); MONOCYTES PERCENT MAN 17 % (4-13); MYELOCYTE ABSOLUTE MAN 0.11 K/mm3 (0.00-0.00); MYELOCYTE PERCENT MAN 2 % (0-0); NEUTROPHILS ABSOLUTE MAN 2.49 K/mm3 (1.96-9.15); PLASMA CELL ABSOLUTE MAN 0.05 K/mm3 (0.00-0.00); PLASMA CELLS PERCENT MAN 1 % (0-0); SEG NEUTROPHILS PERCENT MAN 33 % (41-73); TOTAL CELLS COUNTED 100
[2019-09-11] MEDS ORDERED: Duoneb 2.5-0.5 M3 ML INH (14:22)
[2019-09-11] MEDS ORDERED: AMOCLA500 PO (14:23)
[2019-09-11] MEDS ORDERED: FOLI1 PT (14:23)
[2019-09-11] MEDS ORDERED: B-1100 M1 PT (14:24)
--- NOTE | 2019-09-11 15:37 | NUR ---
PT DISCHARGED PT DISCAHRGED AT 1525. PT & EDUCATED ON DC INSTRUCTIONS, NEW MEDS, AND FOLLOW UP APPOINTMENT. NO CHANGES IN ASSESSMENT PRIOR TO DC. PT TOLERATING FEEDS WELL. IVS REMOVED & INTACT. PT WHEELED OUT BY VOLUNTEER. TO DRIVE PT HOME.
== END 2019-09-11 15:25 | disposition home or self-care (01) | DRG 394 ==
LOC: DELPENDDIS → ER 14:06 → MEDS 19:41 → ENPENDDIS 09-07 09:00 → MEDS 09-11 15:25
PROVIDERS: Internal Medicine; Internal Medicine Gastroenterology; Physician Assistant; ADMIT Family Medicine
PROC: 0DP6XUZ Removal of Feeding Device from Stomach, External Approach (ICD-10-PCS; principal; 2019-09-04)
PROC: 0DH67UZ Insertion of Feeding Device into Stomach, Via Natural or Artificial Opening (ICD-10-PCS; 2019-09-10)
DX: K94.23 Gastrostomy malfunction (principal); J96.11 Chronic respiratory failure with hypoxia; L03.311 Cellulitis of abdominal wall; E44.0 Moderate protein-calorie malnutrition; G47.33 Obstructive sleep apnea (adult) (pediatric); J44.9 Chronic obstructive pulmonary disease, unspecified; I25.10 Atherosclerotic heart disease of native coronary artery without angina pectoris; I73.9 Peripheral vascular disease, unspecified; Z86.711 Personal history of pulmonary embolism; Z95.0 Presence of cardiac pacemaker; Z87.891 Personal history of nicotine dependence; Z99.81 Dependence on supplemental oxygen; F03.90 Unspecified dementia, unspecified severity, without behavioral disturbance, psychotic disturbance, mood disturbance, and anxiety; D63.8 Anemia in other chronic diseases classified elsewhere
CPT/HCPCS: 36415; 49440; 74177; 80048; 80053; 80069; 82728; 82947; 83540; 83550; 83605; 83735; 84100; 84145; 84478; 85025; 94640; 94660; 94762; 96365-59; 96366; 97110; 97162; 97165; 97530; 99152; 99153; 99285-25; A9270; C1769; C1887; C9113; J0696; J2250; J2270; J2543; J3010; J3411; J7030; J7050; Q9967

== ENCOUNTER → 2019-09-04 | Outpatient (CLI) | payer MEDICARE, OTHER ==
[~2019-09-04] MED LIST changes: +AMOCLA500 PO; +B-1100 M1 PT; +Duoneb 2.5-0.5 M3 ML INH; +FOLI1 PT; +GLYC2; +LIDO700A20 TOP; +OMEPRAZOLE20 MG; +OMEPRAZOLE20 MG PO; +PANTOPRAZOLE SO40 M2 PO; +Potassium20 MEQ/11 PO; +[UNRECOGNIZED DRUG - OTHER] INH
== END | disposition home or self-care (01) ==
LOC: LAB 13:35 → LAB SHORT 13:35
DX: Z48.815 Encounter for surgical aftercare following surgery on the digestive system (principal); Z93.1 Gastrostomy status
CPT/HCPCS: 87070; 87075; 87205

== ENCOUNTER 2019-10-04 14:28 | Emergency (ER) | payer MEDICARE, OTHER ==
[~2019-10-04] VITALS: Ht 172.7 cm; Wt 61.2 kg
[~2019-10-04 14:28] MED LIST changes: +AMOCLA500 PO; +B-1100 M1 PT; +Duoneb 2.5-0.5 M3 ML INH; +FOLI1 PT; +PANTOPRAZOLE SO40 M2 PO; +Potassium20 MEQ/11 PO; +[UNRECOGNIZED DRUG - OTHER] INH
== END 2019-10-04 16:05 | disposition home or self-care (01) ==
LOC: ER 14:28
DX: K94.23 Gastrostomy malfunction (principal); I25.10 Atherosclerotic heart disease of native coronary artery without angina pectoris; I73.9 Peripheral vascular disease, unspecified; D64.9 Anemia, unspecified; J96.12 Chronic respiratory failure with hypercapnia; J96.11 Chronic respiratory failure with hypoxia; J43.9 Emphysema, unspecified; Z88.8 Allergy status to other drugs, medicaments and biological substances; Z79.899 Other long term (current) drug therapy; Z79.51 Long term (current) use of inhaled steroids; Z87.891 Personal history of nicotine dependence
CPT/HCPCS: 99282

== ENCOUNTER 2019-10-22 11:29 | Emergency (ER) | payer MEDICARE, OTHER ==
[~2019-10-22] VITALS: Ht 172.7 cm; Wt 61.2 kg
[~2019-10-22 11:29] MED LIST changes: +B-1100 M1 PO; -B-1100 M1 PT
[2019-10-22 12:08] LABS: BASOPHILS ABSOLUTE AUTO 0.03 K/mm3 (0.00-0.23); BASOPHILS PERCENT AUTO 1 % (0-2); EOSINOPHILS ABSOLUTE AUTO 0.14 K/mm3 (0.00-0.68); EOSINOPHILS PERCENT AUTO 2 % (0-6); Hematocrit 32.7 % (37.0-53.0); Hemoglobin 10.2 g/dL (13.5-17.5); IMMATURE GRAN PERCENT AUTO 7 % (0-1); LYMPHOCYTES ABSOLUTE AUTO 1.71 K/mm3 (0.84-5.20); LYMPHOCYTES PERCENT AUTO 28 % (21-46); MONOCYTES ABSOLUTE AUTO 1.34 K/mm3 (0.16-1.47); MONOCYTES PERCENT AUTO 22 % (4-13); Mean Corpuscular HGB 35.4 pg (26.0-34.0); Mean Corpuscular HGB Conc 31.2 g/dL (31.5-36.5); Mean Corpuscular Volume 114 fL (80-100); NEUTROPHILS ABSOLUTE AUTO 2.48 K/mm3 (1.96-9.15); NEUTROPHILS PERCENT AUTO 41 % (41-73); Platelet Count 414 K/mm3 (150-400); RDW Coefficient Variation 18.6 % (11.7-14.2); RDW Standard Deviation 78.9 fL (35.1-46.3); Red Blood Cell Count 2.88 M/mm3 (4.30-5.90)
[2019-10-22 12:21] LABS: Alanine Aminotransfer (ALT/SGP 30 U/L (12-78); Albumin, Blood 2.9 g/dL (3.4-5.0); Albumin/Globulin Ratio 0.6 (0.8-1.8); Alk Phos 103 U/L (50-136); Anion Gap 1 mmol/L (6-16); Aspartate Aminotrans (AST/SGOT 26 U/L (12-37); Bilirubin, Total 0.6 mg/dL (0.1-1.0); Blood Urea Nitrogen 22 mg/dL (8-24); Bun/Creatinine Ratio 32.4 (12.0-20.0); CO2, Blood 39 mmol/L (21-32); Calcium, Blood 8.9 mg/dL (8.5-10.1); Chloride, Blood 96 mmol/L (98-108); Creatinine, Blood 0.68 mg/dL (0.60-1.20); Globulin, Blood 4.5 g/dL (2.2-4.0); Glomerular Filtration Rate >60 (60-); Glucose, Blood 96 mg/dL (70-99); Potassium, Blood 4.1 mmol/L (3.5-5.5); Sodium, Blood 136 mmol/L (136-145); Total Protein, Blood 7.4 g/dL (6.4-8.2); Troponin I 0.017 ng/mL (0.000-0.040)
[2019-10-22 12:35] LABS: PCO2 Arterial 61.3 mmHg (35-45); PO2 Arterial 130 mmHg (80-100); pH Blood Arterial 7.42 (7.35-7.45)
[2019-10-22] MEDS ORDERED: PRED10 PO (12:57)
== END 2019-10-22 14:00 | disposition home or self-care (01) ==
LOC: ER 11:29
PROVIDERS: Emergency Medicine
DX: J44.1 Chronic obstructive pulmonary disease with (acute) exacerbation (principal); I48.91 Unspecified atrial fibrillation; Z87.891 Personal history of nicotine dependence
CPT/HCPCS: 36415; 36600; 71046; 80053; 82803; 83880; 84484; 85025; 93005; 93010; 94644; 99284-25

== ENCOUNTER 2019-11-12 08:26 | Emergency (ER) | payer MEDICARE, OTHER ==
[~2019-11-12] VITALS: Ht 172.7 cm; Wt 61.2 kg
[2019-11-12 09:26] LABS: BASOPHILS ABSOLUTE AUTO 0.04 K/mm3 (0.00-0.23); BASOPHILS PERCENT AUTO 0 % (0-2); EOSINOPHILS PERCENT AUTO 2 % (0-6); Hematocrit 37.8 % (37.0-53.0); IMMATURE GRAN ABSOLUTE AUTO 0.36 K/mm3 (0.00-0.10); IMMATURE GRAN PERCENT AUTO 3 % (0-1); LYMPHOCYTES ABSOLUTE AUTO 1.44 K/mm3 (0.84-5.20); LYMPHOCYTES PERCENT AUTO 13 % (21-46); MONOCYTES ABSOLUTE AUTO 3.06 K/mm3 (0.16-1.47); MONOCYTES PERCENT AUTO 27 % (4-13); Mean Corpuscular HGB 35.8 pg (26.0-34.0); Mean Corpuscular HGB Conc 31.7 g/dL (31.5-36.5); Mean Corpuscular Volume 113 fL (80-100); Mean Platelet Volume 10.6 fL (9.1-12.4); NEUTROPHILS ABSOLUTE AUTO 6.14 K/mm3 (1.96-9.15); NEUTROPHILS PERCENT AUTO 55 % (41-73); Platelet Count 341 K/mm3 (150-400); RDW Coefficient Variation 16.6 % (11.7-14.2); Red Blood Cell Count 3.35 M/mm3 (4.30-5.90); White Blood Cell Count 11.24 K/mm3 (4.00-11.30)
[2019-11-12 09:42] LABS: Alanine Aminotransfer (ALT/SGP 36 U/L (12-78); Albumin, Blood 2.8 g/dL (3.4-5.0); Albumin/Globulin Ratio 0.5 (0.8-1.8); Alk Phos 85 U/L (50-136); Anion Gap 2 mmol/L (6-16); Aspartate Aminotrans (AST/SGOT 36 U/L (12-37); Bilirubin, Total 0.6 mg/dL (0.1-1.0); Blood Urea Nitrogen 22 mg/dL (8-24); Bun/Creatinine Ratio 29.3 (12.0-20.0); CO2, Blood 38 mmol/L (21-32); Calcium, Blood 9.5 mg/dL (8.5-10.1); Chloride, Blood 95 mmol/L (98-108); Creatinine, Blood 0.75 mg/dL (0.60-1.20); Globulin, Blood 5.1 g/dL (2.2-4.0); Glomerular Filtration Rate >60 (60-); Glucose, Blood 94 mg/dL (70-99); Potassium, Blood 3.9 mmol/L (3.5-5.5); Sodium, Blood 135 mmol/L (136-145); Total Protein, Blood 7.9 g/dL (6.4-8.2); Troponin I <0.015 ng/mL (0.000-0.040)
== END 2019-11-12 12:03 | disposition home or self-care (01) ==
LOC: ER 08:26
PROVIDERS: Emergency Medicine
DX: I11.0 Hypertensive heart disease with heart failure (principal); I50.9 Heart failure, unspecified; J44.9 Chronic obstructive pulmonary disease, unspecified; I25.10 Atherosclerotic heart disease of native coronary artery without angina pectoris; K21.9 Gastro-esophageal reflux disease without esophagitis; M10.9 Gout, unspecified; I48.91 Unspecified atrial fibrillation; I73.00 Raynaud's syndrome without gangrene
CPT/HCPCS: 36415; 71045; 80053; 83880; 84484; 85025; 93005; 93010; 99284-25